=== PATIENT | male | born 1955 | race Caucasian/White ===

== ENCOUNTER 2019-07-11 06:32 | Emergency (ER) | payer BC, SELFPAY ==
--- NOTE | 2019-07-11 07:35 | RAD ---
EXAM: 3 views of the left shoulder HISTORY: Shoulder pain COMPARISON: None FINDINGS: There is anterior dislocation of the glenohumeral joint. No fracture is seen. No degenerati ve changes are present. No soft tissue swelling is seen. The visualized thorax is unremarkable. IMPRESSION: Left shoulder dislocation
[2019-07-11] MEDS ORDERED: Propofol 1,000 MG/100 ML VIAL IV ONE (07:52)
--- NOTE | 2019-07-11 08:32 | RAD ---
XR Shoulder Lt 2 View HISTORY: Fall left shoulder dislocation FINDINGS: There has been interval reduction of the anterior dislocation noted on the earlier exam of 7:48 AM fr om the same date. Anatomic alignment has been restored.
== END 2019-07-11 09:20 | disposition home or self-care (01) ==
LOC: ERS 06:32
DX: S43.015A Anterior dislocation of left humerus, initial encounter (principal); M10.9 Gout, unspecified; K21.9 Gastro-esophageal reflux disease without esophagitis; E78.5 Hyperlipidemia, unspecified; E78.00 Pure hypercholesterolemia, unspecified; I10 Essential (primary) hypertension; F32.9 Major depressive disorder, single episode, unspecified; Z79.899 Other long term (current) drug therapy; Z79.82 Long term (current) use of aspirin; W19.XXXA Unspecified fall, initial encounter
CPT/HCPCS: 23650; 99152; J2704

== ENCOUNTER 2019-12-13 03:38 | Inpatient (IN) | payer MEDICARE, OTHER ==
[2019-12-13 04:28] LABS: #Basophils 0.1 thou/uL (0.0-0.2); #Eosinphils 0.2 thou/uL (0.0-0.7); #Lymphocytes 2.1 thou/uL (1.20-3.40); #Monocytes 0.6 thou/uL (0.11-0.59); #Neutrophils 6.7 thou/uL (1.40-6.50); %Basophils 0.6 % (0.0-1.0); %Eosinophils 2.5 % (0.0-10.0); %Lymphocytes 21.4 % (21.0-51.0); %Monocytes 6.5 % (0.0-10.0); %Neutrophils 69.1 % (42.0-75.0); Hemoglobin 12.7 g/dL (14.0-18.0); Mean Corpuscular HGB CONC 31.6 g/dL (32.0-36.0); Mean Corpuscular Hemoglobin 29.8 pg (27.0-31.0); Mean Corpuscular Volume 94.2 fL (78.0-98.0); Mean Platelet Volume 7.7 fL (7.4-10.4); Platelet Count 272 thou/uL (130-400); RBC Distribution Width 13.5 % (11.5-14.5); Red Blood Cell (RBC) Count 4.25 mill/uL (4.70-6.10); White Blood Cell (WBC) Count 9.8 thou/uL (4.8-10.8)
[2019-12-13 04:42] LABS: ALT (SGPT) 29 U/L (8-55); AST (SGOT) 24 U/L (5-34); Alkaline Phosphatase 111 U/L (40-110); Anion Gap 13 mmol/L (10-20); BUN (Urea Nitrogen) 26 mg/dL (8.4-25.7); Bilirubin, Total 0.5 mg/dL (0.2-1.2); Calc. Creatinine Clearance 0 mL/min (70-130); Calcium 9.3 mg/dL (7.8-10.44); Carbon Dioxide 23 mmol/L (23-31); Chloride 108 mmol/L (98-107); Estimated GFR-MDRD 46; Globulin 3.5 g/dL (2.4-3.5); Glucose 139 mg/dL (80-115); Potassium 3.9 mmol/L (3.5-5.1); Protein, Total 7.5 g/dL (5.8-8.1); Sodium 140 mmol/L (136-145)
[2019-12-13] MEDS ORDERED: Aspirin Chewable 81 MG TAB ONE (05:08)
[2019-12-13] MEDS ORDERED: Diltiazem 125 MG/25 ML ONE ×2 (05:08→14:46)
[2019-12-13 05:11] LABS: CKMB 3.8 ng/mL (0-6.6)
[2019-12-13] MEDS ORDERED: Calcium Carbonate 500 MG ChewTAB PO PRN (05:16)
[2019-12-13] MEDS ORDERED: Ondansetron ODT 4 MG TAB PO PRN (05:16)
[2019-12-13] MEDS ORDERED: HYDROcodone/Acetaminophen 5/325 mg Tablet PO PRN (05:16)
[2019-12-13] MEDS ORDERED: Acetaminophen 325 MG TAB PO PRN (05:16)
[2019-12-13] MEDS ORDERED: Acetaminophen 650 MG Suppository PR PRN (05:16)
[2019-12-13] MEDS ORDERED: Ondansetron PF 4 MG/2 ML Vial IVP PRN (05:16)
--- NOTE | 2019-12-13 05:21 | PDOC.HHP ---
Hospitalist HPI - History of Present Illness dyspnea History of Present Illness: Case of an 64y/o male with pmhx of htn hyperlipidemia gout and mdd who comes to hospital due to dyspnea. patient refers he was on his usual state of health until around 2 week ago when he started with dyspena worsen by exercision that has kept worsening been more significant today for he decided to come to hospital for evaluation. patient denies chest / abd pain diaphoresis or nausea. at the ed pt was found w afib in rvr for which hospitalist was called for further evaluation and management Hospitalist ROS - Review of Systems All other systems reviewed; all pertinent +/- noted in HPI/Subj Hospitalist History - Past Medical History Cardiac: reports: HTN, Hyperlipidemia - Past Surgical History Past Surgical History: reports: no pertinent history - Family History Family History: reports: hypertension - Social History Smoking Status: Never smoker Alcohol: reports: Occassional Drugs: reports: none - Exam General Appearance: NAD Eye: PERRL, anicteric sclera ENT: normocephalic atraumatic, no oropharyngeal lesions Neck: supple, symmetric, no JVD Heart: no murmur, no gallops, no rubs Heart - other findings: irregular rythm, tachycardic Respiratory: CTAB, no wheezes, no rales Gastrointestinal: soft, non-tender, non-distended Extremities: no cyanosis, no clubbing, no edema Skin: normal turgor, no lesions Neurological: cranial nerve grossly intact, normal sensation to touch Musculoskeletal: normal tone, normal strength, no muscle wasting Psychiatric: normal affect, normal behavior, A&O x 3 Hospitalist Results - Labs Result Diagrams: 12/13/19 04:07 12/13/19 04:07 Lab results: WBC 9.8 thou/uL (4.8-10.8) 12/13/19 04:07 Hgb 12.7 g/dL (14.0-18.0) L 12/13/19 04:07 Hct 40.1 % (42.0-52.0) L 12/13/19 04:07 MCV 94.2 fL (78.0-98.0) 12/13/19 04:07 Plt Count 272 thou/uL (130-400) 12/13/19 04:07 Neutrophils % 69.1 % (42.0-75.0) 12/13/19 04:07 Sodium 140 mmol/L (136-145) 12/13/19 04:07 Potassium 3.9 mmol/L (3.5-5.1) 12/13/19 04:07 Chloride 108 mmol/L (98-107) H 12/13/19 04:07 Carbon Dioxide 23 mmol/L (23-31) 12/13/19 04:07 BUN 26 mg/dL (8.4-25.7) H 12/13/19 04:07 Creatinine 1.53 mg/dL (0.7-1.3) H 12/13/19 04:07 Glucose 139 mg/dL (80-115) H 12/13/19 04:07 Calcium 9.3 mg/dL (7.8-10.44) 12/13/19 04:07 Total Bilirubin 0.5 mg/dL (0.2-1.2) 12/13/19 04:07 AST 24 U/L (5-34) 12/13/19 04:07 ALT 29 U/L (8-55) 12/13/19 04:07 Alkaline Phosphatase 111 U/L (40-110) H 12/13/19 04:07 CK-MB (CK-2) 3.8 ng/mL (0-6.6) 12/13/19 04:07 Troponin I 0.033 ng/mL (< 0.028) H 12/13/19 04:07 B-Natriuretic Peptide 298.7 pg/mL (0-100) H 12/13/19 04:07 Serum Total Protein 7.5 g/dL (5.8-8.1) 12/13/19 04:07 Albumin 4.0 g/dL (3.4-4.8) 12/13/19 04:07 - EKG Interpretation EKG: afib in rvr - Radiology Interpretation Chest x-ray Additional Comment: cardio megaly, vascular congestion Hospitalist H&P A/P - Problem (1) Atrial fibrillation with rapid ventricular response Code(s): I48.91 - UNSPECIFIED ATRIAL FIBRILLATION Status: Acute (2) HTN (hypertension) Code(s): I10 - ESSENTIAL (PRIMARY) HYPERTENSION Status: Acute (3) Hypercholesteremia Code(s): E78.00 - PURE HYPERCHOLESTEROLEMIA, UNSPECIFIED Status: Acute (4) Gout Code(s): M10.9 - GOUT, UNSPECIFIED Status: Acute (5) Obese Code(s): E66.9 - OBESITY, UNSPECIFIED Status: Acute (6) Elevated troponin Code(s): R79.89 - OTHER SPECIFIED ABNORMAL FINDINGS OF BLOOD CHEMISTRY Status : Acute - Plan Plan: atrial fibrillation - new onset - on diltiazem drip - full ac w lovenox - cardio evaluation - cardiac monitoring -tsh elevated troponin - likely nstemi type 2 - continue to trend - evaluation of modifiable risk factors w lipid panel and htn / hypercholesterolemia / gout - continue home meds
[2019-12-13] MEDS ORDERED: Sodium Chloride 0.9% 1,000 ML IV SCH (05:30)
[2019-12-13 06:40] LABS: Cardiac Risk 3.2 (Less than 4.5)
--- NOTE | 2019-12-13 07:50 | RAD ---
EXAM: Single view of the chest HISTORY: Dyspnea COMPARISON: None FINDINGS: Single view of the chest shows an enlarged cardiomediastinal silhouette. There are opacitie s in both lung bases which may represent atelectasis or infiltrates. The bones are unremarkable. IMPRESSION: Bibasilar atelectasis versus infiltrates
[2019-12-13 07:56] LABS: Hemoglobin A1c 6.1 % (4.0-6.0)
[2019-12-13 08:14] LABS: Troponin I 0.022 ng/mL (< 0.028)
[2019-12-13] MEDS ORDERED: Enoxaparin Sodium 100 MG/ML SYRINGE ONE (08:33)
[2019-12-13] MEDS: Enoxaparin Sodium 100 MG/ML SYRINGE SC SCH ×2 (08:53→21:03)
[2019-12-13] MEDS ORDERED: Enoxaparin Sodium 40 MG/0.4 ML SYRINGE SC SCH (09:00)
[2019-12-13 10:47] LABS: Troponin I 0.012 ng/mL (< 0.028)
--- NOTE | 2019-12-13 16:34 | PDOC.HOSPP ---
- Subjective Encounter Date: 12/13/19 Encounter Time: 16:30 Subjective: pt seen in the unit, still on cardizem gtt, i started him on Po cardizem to wean off the gtt. stable, plan for cardioversion in am. - Objective Vital Signs & Weight: Vital Signs (12 hours) Temp 12/13/19 16:16 96.4 F L I&O: 12/12/19 12/13/19 12/14/19 06:59 06:59 06:59 Output Total 200 Balance -200 Result Diagrams: 12/13/19 04:07 12/13/19 04:07 Hospitalist ROS - Medication Medications: Active Medications Generic Name Dose Route Start Last Admin Trade Name Freq PRN Reason Stop Dose Admin Diltiazem HCl 60 mg 12/13/19 15:00 12/13/19 14:52 Cardizem PO 60 mg TID DENNIS Administration Enoxaparin Sodium 100 mg 12/13/19 09:00 12/13/19 08:53 Lovenox SC 100 mg 0900,2100 DENNIS Administration Sodium Chloride 10 ml 12/13/19 09:00 12/13/19 09:00 Flush - Normal Saline IVF 10 ml Q12HR DENNIS Administration - Exam General Appearance: NAD, awake alert Eye: PERRL ENT: normocephalic atraumatic Neck: supple Heart: RRR, normal peripheral pulses Respiratory: CTAB, normal chest expansion Gastrointestinal: soft, normal bowel sounds Neurological: no focal deficits Hosp A/P - Plan New onset afib still on cardizem gtt, i started him on Po cardizem to wean off the gtt. stable, plan for cardioversion in am. --pt stays that he was on bl..t suzannanner in the past, for remote hx of stroke,--- may be thinking of plavix --as no home meds noted as blood thinner --lovenox bid, asa -TSH nl range -apprecaite Dr. Lima's help. Abnormal troponin - d/t afib w.. RVR. OSMANI -fw on the trend HTN -as above-- on cardizem GOUt - no home med for this. Obesity
[2019-12-13 16:43] VITALS: BMI 44.2
[2019-12-13] MEDS ORDERED: Melatonin 3 MG TAB PO PRN (20:59)
[2019-12-13] MEDS: Diltiazem 125 MG in Sodium Chloride 0.9% 100 ML IVPB SCH (23:44)
[2019-12-14 04:14] LABS: #Eosinphils 0.2 thou/uL (0.0-0.7); #Lymphocytes 2.1 thou/uL (1.20-3.40); #Monocytes 0.8 thou/uL (0.11-0.59); #Neutrophils 7.1 thou/uL (1.40-6.50); %Basophils 0.4 % (0.0-1.0); %Eosinophils 1.8 % (0.0-10.0); %Lymphocytes 20.1 % (21.0-51.0); %Monocytes 7.9 % (0.0-10.0); %Neutrophils 69.8 % (42.0-75.0); Hemoglobin 12.2 g/dL (14.0-18.0); Mean Corpuscular HGB CONC 31.7 g/dL (32.0-36.0); Mean Corpuscular Hemoglobin 30.2 pg (27.0-31.0); Mean Corpuscular Volume 95.3 fL (78.0-98.0); Mean Platelet Volume 7.8 fL (7.4-10.4); Platelet Count 265 thou/uL (130-400); RBC Distribution Width 13.6 % (11.5-14.5); Red Blood Cell (RBC) Count 4.04 mill/uL (4.70-6.10); White Blood Cell (WBC) Count 10.2 thou/uL (4.8-10.8)
[2019-12-14 04:36] LABS: ALT (SGPT) 26 U/L (8-55); AST (SGOT) 22 U/L (5-34); Albumin 3.9 g/dL (3.4-4.8); Alkaline Phosphatase 110 U/L (40-110); Anion Gap 13 mmol/L (10-20); BUN (Urea Nitrogen) 23 mg/dL (8.4-25.7); Bilirubin, Total 0.6 mg/dL (0.2-1.2); Calc. Creatinine Clearance 99 mL/min (70-130); Calcium 9.2 mg/dL (7.8-10.44); Carbon Dioxide 24 mmol/L (23-31); Chloride 108 mmol/L (98-107); Estimated GFR-MDRD 53; Globulin 3.3 g/dL (2.4-3.5); Glucose 129 mg/dL (80-115); Potassium 4.5 mmol/L (3.5-5.1); Protein, Total 7.2 g/dL (5.8-8.1); Sodium 140 mmol/L (136-145)
[2019-12-14] MEDS: Enoxaparin Sodium 100 MG/ML SYRINGE SC SCH ×2 (07:19→20:55)
[2019-12-14] MEDS: Aspirin 81 mg Enteric Coated Tablet PO SCH (07:20)
--- NOTE | 2019-12-14 07:39 | CON ---
DATE OF CONSULTATION: CONSULTING DOCTOR: Dr. Carlos Mora HISTORY OF PRESENT ILLNESS: The patient is a 64-year-old gentleman, who presents for evaluation of dyspnea. The patient has a previous history of hypertension and dyslipidemia. The patient was in his usual state of health until two weeks ago , he started developing increasing dyspnea. He reports becoming short of breath with minimal exertion. He denied having any chest discomfort. PAST MEDICAL HISTORY: 1. Hypertension. 2. CVA. 3. Renal stones. 4. Dyslipidemia. PAST SURGICAL HISTORY: None. SOCIAL HISTORY: Nonsmoker. MEDICATIONS: 1. Lisinopril 20 daily. 2. Paxil 20 daily. 3. Allopurinol 300 daily. 4. Lipitor 40 at bedtime. 5. Lisinopril 20mg daily. 6. HCTZ 25 daily. 7. Aspirin 81 daily. 8. Norvasc 10 daily. 9. Pepcid 20 daily. 10. HCTZ 12.5 daily. SOCIAL HISTORY: Nonsmoker. FAMILY HISTORY: Positive family history of coronary artery disease. REVIEW OF SYSTEMS: Ten-point system otherwise unremarkable. No history of easy bruising or bleeding or bright red blood per rectum. PHYSICAL EXAMINATION: GENERAL: Obese gentleman, in no acute distress. VITAL SIGNS: Blood pressure of 124/85. NECK: Showed no jugular venous distention. LUNGS: Clear to auscultation. HEART: Irregular rate and rhythm. Normal S1 and S2. No murmurs. ABDOMEN: Distended. EXTREMITIES: Showed trace edema. VASCULAR: Radial pulses are 2+. LABORATORY RESULTS: Sodium was 140, potassium 3.9, chloride 108, bicarbonate 23, BUN 26, creatinine 1.5, glucose 139. Troponin was 0.022 and 0.012. White blood count 9.8, hemoglobin 12.7, hematocrit 40.1, and platelet 272. EKG atrial fibrillation with a nonspecific ST abnormality. IMPRESSION: 1. Paroxysmal atrial fibrillation. 2. Hypertension. 3. Dyslipidemia. 4. History of cerebrovascular accident. 5. Morbid obesity. This gentleman presents with new onset atrial fibrillation. The patient was on Lovenox and IV Cardizem. The patient is markedly symptomatic, we would recommend the patient be considered for possible electrical cardioversion. We will follow this patient with you through his hospitalization. Further recommendations to follow. Job ID: [id number] [facility]
[2019-12-14] MEDS ORDERED: PROPOFOL 20 ML ONE (08:47)
[2019-12-14] MEDS ORDERED: Furosemide 40 MG/4 ML VIAL ONE (09:13)
[2019-12-14] MEDS ORDERED: Enoxaparin Sodium 100 MG/ML SYRINGE SC SCH (12:00)
[2019-12-14] MEDS ORDERED: ALPRAZolam 0.25 MG TAB PO SCH (12:15)
[2019-12-14] MEDS ORDERED: Furosemide 40 MG/4 ML VIAL SLOW IVP SCH ×2 (12:15→19:15)
[2019-12-14] MEDS ORDERED: PROPOFOL 200 MG/20 ML VIAL ONE (12:21)
[2019-12-14] MEDS: Propafenone HCl 150 MG TAB PO SCH ×2 (12:32→21:03)
[2019-12-14] MEDS: Digoxin 0.25 MG TAB PO SCH ×3 (12:32→23:08)
--- NOTE | 2019-12-14 13:21 | PDOC.HOSPP ---
- Subjective Encounter Date: 12/14/19 Encounter Time: 13:20 Subjective: s/p cardioversion, in afib in the monitor, pulse in 80s. ok for tele [no beds] . - Objective Vital Signs & Weight: Vital Signs (12 hours) Temp Pulse Pulse Ox 12/14/19 12:32 111 H 12/14/19 11:38 97.0 F L 12/14/19 08:00 98 12/14/19 07:07 96.6 F L 12/14/19 03:30 98.2 F Weight Weight 282 lb 6.4 oz Most Recent Monitor Data Heart Rate from ECG 141 NIBP 148/88 NIBP BP-Mean 108 Respiration from ECG 22 SpO2 94 I&O: 12/13/19 12/14/19 12/15/19 06:59 06:59 06:59 Intake Total 360 Output Total 650 Balance -290 Result Diagrams: 12/14/19 03:56 12/14/19 03:56 Hospitalist ROS - Medication Medications: Active Medications Generic Name Dose Route Start Last Admin Trade Name Freq PRN Reason Stop Dose Admin Hydrocodone Bitart/Acetaminophen 1 tab 12/13/19 05:16 12/13/19 23:44 [place] 5/325 PO 1 tab Q4H PRN Administration Moderate Pain (4-6) Alprazolam 0.25 mg 12/14/19 12:15 12/14/19 12:32 Xanax PO 12/14/19 14:15 0.25 mg NOW DENNIS Administration Digoxin 0.25 mg 12/14/19 12:00 12/14/19 12:32 Lanoxin PO 12/15/19 06:01 0.25 mg Q6HR DENNIS Administration Diltiazem HCl 60 mg 12/13/19 15:00 12/14/19 07:31 Cardizem PO 60 mg TID DENNIS Administration Furosemide 40 mg 12/14/19 12:15 12/14/19 12:09 Lasix SLOW IVP 12/14/19 14:15 Not Given NOW DENNIS Diltiazem HCl 125 mg/ Sodium 125 mls @ 5 mls/hr 12/13/19 05:30 12/13/19 23:44 Chloride IVPB 125 mls INF DENNIS Administration Protocol 5 MG/HR Melatonin 3 mg 12/13/19 20:59 12/13/19 21:03 Melatonin PO 3 mg HSPRN PRN Administration Insomnia Propafenone HCl 150 mg 12/14/19 14:00 12/14/19 12:32 Rythmol PO 150 mg Q8HR DENNIS Administration Sodium Chloride 10 ml 12/13/19 09:00 12/14/19 07:32 Flush - Normal Saline IVF 10 ml Q12HR DENNIS Administration - Exam General Appearance: NAD, awake alert Eye: PERRL ENT: normocephalic atraumatic Neck: supple Heart: irregular Respiratory: CTAB, normal chest expansion Gastrointestinal: soft, normal bowel sounds Neurological: no focal deficits Hosp A/P - Plan New onset afib still on cardizem gtt, i started him on Po cardizem to wean off the gtt. stable, plan for cardioversion in am. --pt stays that he was on bl..t hinner in the past, for remote hx of stroke,--- may be thinking of plavix --as no home meds noted as blood thinner --lovenox bid, asa -TSH nl range -apprecaite Dr. Lima's help. Abnormal troponin - d/t afib w.. RVR. OSMANI -fw on the trend HTN -as above-- on cardizem GOUt - no home med for this. Obesity dgioxin added. [id number] score 2 [age & HTN] not diabetic a1c 6.1 -would benefit w.. NOAC. on lovenox qd dose. ok for tele floor.
--- NOTE | 2019-12-14 16:09 | OP ---
DATE OF PROCEDURE: 12/14/2019 PREPROCEDURE DIAGNOSIS: Atrial fibrillation. POSTPROCEDURE DIAGNOSIS: Atrial fibrillation. PROCEDURE PERFORMED: Failed cardioversion. INDICATIONS FOR PROCEDURE: Mr. Angeles was consented for the procedure. I discussed the procedure in full detail with Mr. Angeles. Risks include, but not limited to the following: Stroke, need for repeat cardioversion, failed cardioversion in addition to a need for temporary pacemaker as well as burning of skin. All questions were answered. Given the above, the patient agreed to proceed with the above procedure. DESCRIPTION OF PROCEDURE: Conscious sedation was performed with propofol. This was performed after IGNACIO. Unsuccessful synchronized cardioversion was performed at 150, 200, and 250 joules. IMPRESSION: Failed cardioversion. Job ID: [id number]
--- NOTE | 2019-12-14 16:10 | OP ---
DATE OF PROCEDURE: 12/14/2019 PREPROCEDURE DIAGNOSIS: Atrial fibrillation. POSTPROCEDURE DIAGNOSIS: Atrial fibrillation. PROCEDURE PERFORMED: Transesophageal echocardiography. I discussed the procedure in full detail with Mr. Angeles. Risks include, but not limited to the following: Damage to teeth, mouth, back of throat; damage to esophagus requiring emergency surgery as well as reaction to medication. All questions answered. Given the above, the patient agreed to proceed with the above procedure. DESCRIPTION OF PROCEDURE: Conscious sedation performed with propofol. The patient did have shortness of breath noted prior, did improve with a non-rebreather. Anesthesia was present. FINDINGS: Left atrial appendage well visualized. No masses or vegetation present. IMPRESSION: No masses present over the left atrial appendage. Job ID: [id number]
[2019-12-14] MEDS ORDERED: Prevnar 13-Val Conj/PF 0.5 ML SYRINGE IM ONE (17:30)
[2019-12-14] MEDS: Diltiazem 125 MG in Sodium Chloride 0.9% 100 ML IVPB SCH (19:16)
[2019-12-14] MEDS: traZODone HCl 50 MG TAB PO PRN (20:55)
[2019-12-15] MEDS: Propafenone HCl 150 MG TAB PO SCH (05:46)
[2019-12-15] MEDS: Digoxin 0.25 MG TAB PO SCH (05:47)
[2019-12-15] MEDS: Aspirin 81 mg Enteric Coated Tablet PO SCH (09:11)
[2019-12-15] MEDS: Enoxaparin Sodium 100 MG/ML SYRINGE SC SCH (09:11)
--- NOTE | 2019-12-15 13:39 | PRG ---
DATE OF SERVICE: 12/15/2019 SUBJECTIVE: Mr. Angeles is doing better. He states he is less short of breath. He has had significant diuresis present. He continues to have intermittent heart rate issues. He does have increased heart rate noted with little ambulation. OBJECTIVE: VITAL SIGNS: Blood pressure 130/81, pulse 88, temperature afebrile. LUNGS: Improved. HEART: Irregularly irregular. ABDOMEN: Soft, nontender, and nondistended. EXTREMITIES: No edema. I's and O's -2170 over 24 hours. IMPRESSION: New onset atrial fibrillation. RECOMMENDATIONS: Symptoms may be related to hypertension in addition to undiagnosed sleep apnea. Continue rate control. We will increase p.o. Cardizem. We will discontinue propafenone. Add Eliquis 5 mg one p.o. b.i.d. Continue digoxin at 0.25 q.a.m. Plan is rate control. If stable over the weekend, it will be okay for discharge with close outpatient followup and plan on outpatient cardioversion. I did speak at length with his daughter. I did state that he should probably be out of work until he is seen in followup for further recommendations. Sahil blackmon. Job ID: [id number]
--- NOTE | 2019-12-15 14:04 | PDOC.HOSPP ---
- Subjective Encounter Date: 12/15/19 Encounter Time: 10:20 Subjective: pt is anious to go home today. Talk to area coordinator. CCB dose increased to optimize for his high pulse. convinced him to stay another day. Need to start him on NOAC. - Objective Vital Signs & Weight: Vital Signs (12 hours) Temp Pulse Resp BP Pulse Ox 12/15/19 11:30 98.3 F 88 16 132/81 97 12/15/19 09:12 112 H 18 111/87 12/15/19 08:00 97 12/15/19 07:45 97.5 F L 108 H 21 H 104/77 97 12/15/19 05:47 95 12/15/19 04:01 98 F 115 H 20 98/51 L 94 L Weight Weight 282 lb 6.4 oz Most Recent Monitor Data Heart Rate from ECG 103 NIBP 106/83 NIBP BP-Mean 90 Respiration from ECG 22 SpO2 91 I&O: 12/14/19 12/15/19 12/16/19 06:59 06:59 06:59 Intake Total 360 630 960 Output Total 650 2800 Balance -290 -2170 960 Result Diagrams: 12/14/19 03:56 12/14/19 03:56 Hospitalist ROS - Medication Medications: Active Medications Generic Name Dose Route Start Last Admin Trade Name Freq PRN Reason Stop Dose Admin Hydrocodone Bitart/Acetaminophen 1 tab 12/13/19 05:16 12/13/19 23:44 [place] 5/325 PO 1 tab Q4H PRN Administration Moderate Pain (4-6) Aspirin 81 mg 12/14/19 09:00 12/15/19 09:11 Ecotrin PO 81 mg DAILY DENNIS Administration Diltiazem HCl 90 mg 12/15/19 07:00 12/15/19 09:09 Cardizem PO 90 mg Q6H DENNIS Administration Diltiazem HCl 125 mg/ Sodium 125 mls @ 5 mls/hr 12/13/19 05:30 12/14/19 19:16 Chloride IVPB 125 mls INF DENNIS Administration Protocol 5 MG/HR Melatonin 3 mg 12/13/19 20:59 12/13/19 21:03 Melatonin PO 3 mg HSPRN PRN Administration Insomnia Sodium Chloride 10 ml 12/13/19 09:00 12/15/19 09:11 Flush - Normal Saline IVF 10 ml Q12HR DENNIS Administration Trazodone HCl 50 mg 12/14/19 19:50 12/14/19 20:55 Desyrel PO 50 mg HSPRN PRN Administration .INSOMNIA - Exam General Appearance: NAD, awake alert Eye: PERRL ENT: normocephalic atraumatic Neck: supple Heart: irregular Respiratory: CTAB, tachypneic Gastrointestinal: soft, normal bowel sounds, no palpable masses Neurological: no focal deficits Psychiatric: A&O x 3 Hosp A/P - Plan New onset afib still on cardizem gtt, i started him on Po cardizem to wean off the gtt. stable, plan for cardioversion in am. --pt stays that he was on bl..t hinner in the past, for remote hx of stroke,--- may be thinking of plavix --as no home meds noted as blood thinner --lovenox bid, asa -TSH nl range -apprecaite Dr. Lima's help. Abnormal troponin - d/t afib w.. RVR. OSMANI -fw on the trend HTN -as above-- on cardizem GOUt - no home med for this. Obesity dgioxin added. [id number] score 2 [age & HTN] not diabetic a1c 6.1 -would benefit w.. NOAC. on lovenox qd dose. 17th Talk to area coordinator. CCB dose increased to optimize for his high pulse. convinced him to stay another day. Need to start him on NOAC. cardizem 90 qid - per cardiology eliquis 5 bid if pulse improved, then 360mg ER of cardizem and dc home in am.
--- NOTE | 2019-12-15 15:26 | CON ---
DATE OF CONSULTATION: HISTORY OF PRESENT ILLNESS: This is a 64-year-old morbidly obese gentleman from [place], [place], who has been in the hospital here since the , consulted today regarding some respiratory distress that he had yesterday, it appears about the time when he had a IGNACIO performed for cardioversion of atrial fibrillation. He has been having difficulty breathing now for a period of time. His x-ray shows cardiomegaly, pleural effusion, consider congestive heart failure. He denies any prior history of TB, pneumonia, or bronchial asthma. Denies any history of sleep apnea. He says he is not a smoker. Most days, he can walk a block without getting markedly short of . PAST MEDICAL HISTORY: High cholesterol, hypertension, recent atrial fibrillation. PAST SURGICAL HISTORY: Renal stent. SOCIAL HISTORY: No alcohol, tobacco abuse. HOME MEDICATIONS: 1. Omeprazole 20. 2. Aspirin. 3. Hydrochlorothiazide. 4. Norvasc. 5. Allopurinol. 6. Lisinopril. 7. Prozac. REVIEW OF SYSTEMS: Otherwise, 10-point negative. PHYSICAL EXAMINATION: VITAL SIGNS: Temperature 98, pulse 83, respiratory rate 16, sats 97% on room air, blood pressure 130/81. CHEST: No wheezing or crackles. CARDIAC: Normal S1, S2. No gallops. ABDOMEN: Massive. ASSESSMENT AND PLAN: Respiratory failure secondary to congestive heart failure, atrial fibrillation, morbid obesity, nonsmoker, hypertension, gout. Pulmonary has nothing to offer at this stage, appears to be stable, he is in no distress, though he may benefit from an outpatient sleep study, if the patient should request one, he is to call our office for followup. Consultation note, 70 minutes, 50% direct patient care. Job ID: [id number]
[2019-12-15] MEDS: traZODone HCl 50 MG TAB PO PRN (21:29)
[2019-12-15] MEDS: Apixaban 5 MG TAB PO SCH (21:29)
[2019-12-16 04:18] VITALS: TEMP 97.3
[2019-12-16] MEDS: Aspirin 81 mg Enteric Coated Tablet PO SCH (08:06)
[2019-12-16] MEDS: Apixaban 5 MG TAB PO SCH (08:06)
[2019-12-16 08:18] VITALS: BP 128/76
[2019-12-16] MEDS ORDERED: Digoxin 0.25 MG TAB PO SCH (09:00)
--- NOTE | 2019-12-16 13:52 | DIS ---
DATE OF ADMISSION: 12/13/2019 DATE OF DISCHARGE: 12/16/2019 DISCHARGE DIAGNOSES: 1. New onset atrial fibrillation. 2. Abnormal troponin due to atrial fibrillation, metabolic mismatch, type 2 demand ischemia. 3. Acute kidney injury. 4. Hypertension. 5. Gout. 6. Obesity. 7. Severe mitral regurgitation. A 2D echo showed EF of 45% to 50%, probably due to ongoing atrial fibrillation. He also has a severe mitral regurgitation. CONSULTS: 1. Cardiology, Dr. Montes. 2. Pulmonology with Dr. Nic Rowe. PHYSICAL EXAMINATION: VITAL SIGNS: On the day of discharge, temperature 97.3, pulse 83, blood pressure 128/76, his pulse ranged from 79 to 83. GENERAL: The patient is quite anxious to go home. He is sitting in the chair. He has no acute events overnight. Monitor still shows atrial fibrillation. CARDIOVASCULAR: Irregular rhythm, regular rate. LUNGS: Clear. ABDOMEN: Protuberant and distended, but it is with body habitus but good bowel sounds. HOSPITAL COURSE: This is a 64-year-old obese male with a history of hypertension, presented with new onset AFib. He was started on Cardene drip. Also started him on Cardizem p.o to wean him off the drip. He has gone through cardioversion, but it was failed attempt. The patient remained in atrial fibrillation. His CHADS2-VASc score is 2. We started him on Lovenox b.i.d. dose and transitioned to Eliquis p.o. b.i.d. The patient does have chronic kidney disease and his creatinine level was 1.53 to 1.35. Cardiology okay with starting him on Eliquis 5 twice a day. The patient also transitioned to Cardizem extended release 360 mg daily. With these interventions, his heart rate seems to be controlled, which is the main goal for the management of atrial fibrillation. The patient expected to follow up with Dr. Montes in 2 to 3 weeks' time. His EF is on the low side of 50%, again may be atrial fibrillation is contributing. Repeat echo is recommended in 2 to 3 months with his primary care physician or at [facility]iology Clinic. TSH in the normal range. His A1c is 6.1. His LDL is 60. The patient is stable to be discharged home today. DISCHARGE MEDICATIONS: 1. Eliquis 5 mg twice a day. 2. Diltiazem extended release 360 mg daily. 3. Lisinopril 5 mg daily. 4. Lipitor 40 mg daily. 5. Allopurinol 300 mg daily. 6. Paroxetine 20 mg daily. 7. Aspirin 81 mg daily. 8. Omeprazole 20 mg daily. 9. Vitamin D3 125 mcg p.o. daily. DISCHARGE INSTRUCTIONS: Activity as tolerated. Healthy heart diet. Follow up with primary care physician in 1 week. Follow up with payroll consultant, Dr. Montes in 2 to 3 weeks' time. TIME SPENT: Discharge time over 35 minutes. Job ID: [id number] [facility]
--- NOTE | 2019-12-18 06:37 | PQF ---
CLINICAL DOCUMENTATION CLARIFICATION FORM: Dear : Yahir Hernández Date / Time: 12/18/19 0636 Please exercise your independent, professional judgment in responding to the clarification form. Clinical indicators are provided on the bottom of this form for your review Please check appropriate box(es) to clarify if the following diagnosis has been ruled in our ruled out: NSTEMI type 2 [ ] Ruled in diagnosis [ ] Continue to treat [ ] Resolved [x ] Ruled out diagnosis [ ] Improving [ ] Cannot rule out diagnosis [ ] Other diagnosis [ ] Unable to determine Physician Signature: Date/Time: For continuity of documentation, please document condition throughout progress notes and discharge summary. Thank You. To be completed by CDI/Coding staff for physician review: Present Clinical Indicators - Signs / Symptoms / Labs Results and Location in Medical Record [X] CK-MB 3.8, Tropinin 0.033, BNP 298.7 Laboratory Chemistry 12/12 [X] BP 141/98, Pulse 111, Resp 37, Temp 96.4 Vital signs 12/12 [X] comes due to dyspnea, worsen by exercision that has kept worsening been more significant today H&P p1 12/12 Dr Mora [X] Elevated troponin likley NSTEMI type 2 H&P p1 12/12 Dr Mora [X] Elated troponin due to afib, metabolic mismatch, type 2 demand ischemia DS p1 12/15 Dr Hernández Present Risk Factors Results and Location in Medical Record [X] 64 year-old Male H&P p1 12/12 Dr Mora [X] HTN H&P p1 12/12 Dr Mora [X] HLD H&P p1 12/12 Dr Mora [X] Afib H&P p312/12 Dr Mora [X] Obesity H&P p312/12 Dr Mora Present Treatments Results and Location in Medical Record [X] Aspirin Chewable 84 mg oral AUG 04 [X] IVICardiazem 25 mg AUG 04 [X] IV Lovenox 100 mg AUG 04 [X] IV Lasix 40 mg AUG 04 [X] Cardiology consult Trever Meyer 12/12 [X] IGNACIO with Cardioversion Operative report Dr Montes 12/13 CDS/Field Service Technician Signature: Jennifer Wells Phone #: [phone] Date/Time: 12/18/19635 This is a permanent part of the Medical Record [facility]
--- NOTE | 2019-12-18 06:39 | PQF ---
CLINICAL DOCUMENTATION CLARIFICATION FORM: Dear : Yahir Hernández Date / Time: 12/18/19637 Please exercise your independent, professional judgment in responding to the clarification form. Clinical indicators are provided on the bottom of this form for your review Please check appropriate box(es): [ x ] Acute Respiratory Failure with Hypoxia [ ] ARDS (Acute Respiratory Distress Syndrome) [ ] Hypoxia [ ] Other diagnosis [ ] Unable to determine In addition, please specify: Present on Admission (POA): [ ] Yes [ ] No [ ] Unable to determine Physician Signature: Date/Time: For continuity of documentation, please document condition throughout progress notes and discharge summary. Thank You. To be completed by CDI/Coding staff for physician review: Present Clinical Indicators - Signs / Symptoms / Labs Results and Location in Medical Record [X] CK-MB 3.8, Tropinin 0.033, BNP 298.7 Laboratory Chemistry 12/12 [X] BP 141/98, Pulse 111, Resp 37, Temp 96.4 Vital signs 12/12 [X] Oxygen Saturation 93% Vital signs 12/12 [X] comes due to dyspnea, worsen by exercision that has kept worsening been more significant today H&P p1 12/12 Dr Mora [X] Respiratory failure secondary to congestive heart failure,Afib, morbid obesity Consult Nic Johnson 12/14 Present Risk Factors Results and Location in Medical Record [X] 64 year-old Male H&P p1 12/12 Dr Mora [X] HTN H&P p1 12/12 Dr Mora [X] HLD H&P p1 12/12 Dr Mora [X] Afib H&P p312/12 Dr Mora [X] Obesity H&P p312/12 Dr Mora Present Treatments Results and Location in Medical Record [X] Oxygen 2L Respiratory panel 12/12 [X] Pulmonary consult Nic Johnson 12/14 [X] IV Lasix 40 mg MAR 12/12 [X] Cardiology consult Trever Meyer 12/12 [X] IGNACIO with Cardioversion Operative report Dr Montes 12/13 CDS/Monument Stonecutter Signature: Jennifer Rowellgunner Phone #: ext [phone] Date/Time: 12/18/19637 Acute Respiratory Failure: ABG pH < 7.35 or > 7.45; Decreased oxygen saturation (<90% room air or < 95% on oxygen); PCO2 > 50 mm Hg; PO2 < 60 mm Hg; Labored or rapid respirations ARDS: Dx Criteria [[place] ARDS]: Respiratory symptoms within one week of a known clinical insult (e.g. shock, infection, surgery, trauma) Bilateral opacities in CXR/Chest CT not due to CHF or fluid This is a permanent part of the Medical Record [facility]
--- NOTE | 2019-12-18 06:40 | PQF ---
CLINICAL DOCUMENTATION CLARIFICATION FORM: Dear : Yahir Hernández Date / Time: 12/18/19 9428 Please exercise your independent, professional judgment in responding to the clarification form. Clinical indicators are provided on the bottom of this form for your review Please check appropriate box(es): HEART FAILURE: A. ACUITY [ ] Acute [ ] Acute on Chronic [ ] Chronic B. TYPE: [ ] Systolic / HFrEF [ ] Diastolic / HFpEF [ x] Combined Systolic / Diastolic [ ] Hypertensive Heart and Kidney disease [ ] Hypertensive Heart Disease [ ] Hypertensive Kidney Disease [ ] Other diagnosis [ ] Unable to determine In addition, please specify: Present on Admission (POA): [x ] Yes [ ] No [ ] Unable to determine Physician Signature: Date/Time: For continuity of documentation, please document condition throughout progress notes and discharge summary. Thank You. To be completed by CDI/Coding staff for physician review: Present Clinical Indicators - Signs / Symptoms / Labs Results and Location in Medical Record [X] CK-MB 3.8, Tropinin 0.033, BNP 298.7 Laboratory Chemistry 12/12 [X] BP 141/98, Pulse 111, Resp 37, Temp 96.4 Vital signs 12/12 [X] comes due to dyspnea, worsen by exercision that has kept worsening been more significant today H&P p1 12/12 Dr Mora [X] Elevated troponin likley NSTEMI type 2 H&P p1 12/12 Dr Mora [X] Respiratory failure secondary to congestive heart failure,Afib, morbid obesity Consult Nic Johnson 12/14 [X] Elated troponin due to afib, metabolic mismatch, type 2 demand ischemia DS p1 12/15 Dr Hernández TTE impression: EF 45-50%, Mitral regurgitation, Tricupid regurgitation TTE Dr Montes 12/13 Present Risk Factors Results and Location in Medical Record [X] 64 year-old Male H&P p1 12/12 Dr Mora [X] HTN H&P p1 12/12 Dr Mora [X] HLD H&P p1 12/12 Dr Mora [X] Afib H&P p312/12 Dr Mora [X] Obesity H&P p312/12 Dr Mora Present Treatments Results and Location in Medical Record [X] Aspirin Chewable 84 mg oral AUG 04 [X] IVICardiazem 25 mg AUG 04 [X] IV Lovenox 100 mg AUG 04 [X] IV Lasix 40 mg AUG 04 [X] Cardiology consult Trever Meyer 12/12 [X] IGNACIO with Cardioversion Operative report Dr Montes 12/13 CDS/Process Operator Signature: Jennifer Wells Phone #: ext [phone] Date/Time: 12/18/19 0639 This is a permanent part of the Medical Record [facility]
== END 2019-12-16 11:56 | disposition home or self-care (01) | DRG 308 ==
LOC: ERS 03:38 → IMCU/EMU 05:20 → ERHOLD 05:20 → IMCU/EMU 15:58 → 2SE 12-15 01:36
PROVIDERS: ADMIT Internal Medicine; ATTEND Internal Medicine
PROC: 5A2204Z Restoration of Cardiac Rhythm, Single (ICD-10-PCS; principal; 2019-12-14)
PROC: B245ZZ4 Ultrasonography of Left Heart, Transesophageal (ICD-10-PCS; 2019-12-14)
DX: I48.0 Paroxysmal atrial fibrillation (principal); J96.01 Acute respiratory failure with hypoxia; I24.8 Other forms of acute ischemic heart disease; N17.9 Acute kidney failure, unspecified; Z68.41 Body mass index [BMI] 40.0-44.9, adult; I50.42 Chronic combined systolic (congestive) and diastolic (congestive) heart failure; Z20.828 Contact with and (suspected) exposure to other viral communicable diseases; M10.9 Gout, unspecified; E66.01 Morbid (severe) obesity due to excess calories; I34.0 Nonrheumatic mitral (valve) insufficiency; E78.5 Hyperlipidemia, unspecified; E78.00 Pure hypercholesterolemia, unspecified; I11.0 Hypertensive heart disease with heart failure; Z86.73 Personal history of transient ischemic attack (TIA), and cerebral infarction without residual deficits; Z79.899 Other long term (current) drug therapy; Z79.82 Long term (current) use of aspirin
CPT/HCPCS: 36415; 71045; 80053; 80061; 82553; 83036; 83880; 84443; 84484; 85025; 92960; 93005; 93010; 93306; 93312; 96365; 96366; 96376; J1650; J1940; J2704; J3490; U0002

== ENCOUNTER 2020-01-01 21:24 | Observation (INO) | payer MEDICARE, OTHER ==
--- NOTE | 2020-01-01 22:09 | RAD ---
XR Chest 1 View Portable HISTORY: Shortness of breath COMPARISON: 12/13/2019 FINDINGS: The heart is enlarged. Patchy peripheral opacities is seen in the mid and lower lung parker . No pneumothoraces or large effusions are identified.
[2020-01-01 22:22] LABS: #Basophils 0.1 thou/uL (0.0-0.2); #Eosinphils 0.2 thou/uL (0.0-0.7); #Lymphocytes 2.7 thou/uL (1.20-3.40); #Monocytes 0.7 thou/uL (0.11-0.59); #Neutrophils 6.1 thou/uL (1.40-6.50); %Basophils 0.8 % (0.0-1.0); %Eosinophils 1.9 % (0.0-10.0); %Lymphocytes 27.7 % (21.0-51.0); %Monocytes 7.3 % (0.0-10.0); %Neutrophils 62.3 % (42.0-75.0); Hemoglobin 12.5 g/dL (14.0-18.0); Mean Corpuscular HGB CONC 31.2 g/dL (32.0-36.0); Mean Corpuscular Hemoglobin 29.9 pg (27.0-31.0); Mean Corpuscular Volume 95.8 fL (78.0-98.0); Mean Platelet Volume 7.5 fL (7.4-10.4); Platelet Count 312 thou/uL (130-400); RBC Distribution Width 14.1 % (11.5-14.5); Red Blood Cell (RBC) Count 4.19 mill/uL (4.70-6.10); White Blood Cell (WBC) Count 9.7 thou/uL (4.8-10.8)
[2020-01-01 22:36] LABS: Bacteria/HPF None Seen HPF (None Seen); Bilirubin Negative (Negative); Blood, Urine 1+ (Negative); Clarity Clear (Clear); Glucose, Urine (Dipstick) Normal (Negative); Ketone, Urine Negative (Negative); Leukocyte Negative Leu/uL (Negative); Nitrite Negative (Negative); Protein, Urine (Dipstick) 50 mg/dL (Neg-Trace); RBC/HPF 0-3 HPF (0-3); Specific Gravity, Urine 1.024 (1.002-1.036); Squamous Epithelial 0-3 HPF (0-3); Urobilinogen Normal mg/dL (Less than 2); WBC/HPF 0-3 HPF (0-3); pH, Urine 5.5 (5.0-9.0)
[2020-01-01 22:38] LABS: ALT (SGPT) 21 U/L (8-55); AST (SGOT) 20 U/L (5-34); Albumin 4.1 g/dL (3.4-4.8); Alkaline Phosphatase 112 U/L (40-110); Anion Gap 12 mmol/L (10-20); BUN (Urea Nitrogen) 24 mg/dL (8.4-25.7); Bilirubin, Total 0.7 mg/dL (0.2-1.2); Calc. Creatinine Clearance 0 mL/min (70-130); Calcium 9.4 mg/dL (7.8-10.44); Carbon Dioxide 25 mmol/L (23-31); Chloride 107 mmol/L (98-107); Estimated GFR-MDRD 54; Globulin 3.3 g/dL (2.4-3.5); Glucose 111 mg/dL (80-115); Potassium 4.3 mmol/L (3.5-5.1); Protein, Total 7.4 g/dL (5.8-8.1); Sodium 140 mmol/L (136-145)
[2020-01-01] MEDS ORDERED: Furosemide 40 MG/4 ML VIAL ONE (23:23)
[2020-01-02 02:01] LABS: SARS-CoV-2 NAA Rapid Test Not Detected (NotDetected)
[2020-01-02 02:58] VITALS: BMI 44.0
[2020-01-02] MEDS ORDERED: Acetaminophen 325 MG TAB PO PRN (03:11)
[2020-01-02] MEDS ORDERED: Acetaminophen 650 MG Suppository PR PRN (03:11)
[2020-01-02] MEDS ORDERED: Melatonin 3 MG TAB PO PRN (03:25)
--- NOTE | 2020-01-02 03:25 | PDOC.HHP ---
Hospitalist HPI - History of Present Illness Shortness of breath History of Present Illness: Patient presents complaining of severe shortness of breath that occurred while working in his yard feeing his chickens. Patient states he normally becomes short of breath with mild exertion but today it was much worse than usual. He felt like he couldn't catch his breath. He was hospitalized 2 weeks ago during which time he had similar symptoms. He was treated with Lasix which helped his symptoms improve significantly. He has had trouble sleeping flat on his back and last night it was difficult for him to fall asleep while laying on his back due to sob. Patient denies any fever, chills or sweats. Cough occasional and dry. No lightheadedness or dizziness. No nausea or vomiting. No abdominal pain. Denies any urinary symptoms. No bowel changes. All other review of systems are negative. Recent admission last month, found to have new onset Afib RVR. He had an unsuccessful attempt at cardiac ablation. Repeat recommended as outpatient. Patient seen by Dr. Montes at that time. Rate control achieved with Cardizem. Patient started on Eliquis. During admission he had an Echo done showing EF 45-50%. Repeat recommended 2-3 months. ED COURSE: EKG showed afib with controlled HR of 88. No ST or T wave changes. CXR showed an enlarged heart. Patchy peripheral opacities is seen in the mid and lower lung parker. No pneumothoraces or large effusions are identified. Patient suspected to be in fluid overload and was given Lasix 40 mg IV. PAST MEDICAL HISTORY: 1. Gout 2. GERD 3. Hyperlipidemia. 4. Hypertension. 5. Obesity. 6. Depression. 7. Atrial fibrillation. PAST SURGICAL HISTORY: 1. Kidney stent. 2. Cardiac ablation, failed attempt to control afib. SOCIAL HISTORY: Patient drinks socially, rarely, Patient denies drug use, Patient has no smoking history. FAMILY HISTORY: Noncontributory. ALLERGIES: No known drug allergies. CURRENT MEDICATIONS: 1. Metoprolol succinate 25 mg PO daily. 2. Aspirin 81 mg PO daily. 3. Calcium 500 PO daily. 4. Famotidine 20 mg PO daily. 5. Fish Oil daily. 6. Lisinopril 5 mg PO daily. 7. Vitamin D 3. 8. Allopurinol 300 mg PO daily. 9. Atorvastatin 40 mg PO daily. 10. Paroxetine 20 mg PO daily. 11. Eliquis 5 mg PO BID. 12. Alprazolam 0.35 mg PO daily 13. Cardizem 360 mg PO daily. 14. Magnesium 250 mg PO daily. Hospitalist History - Past Surgical History Past Surgical History: reports: no pertinent history - Social History Alcohol: reports: Occassional Drugs: reports: none - Exam General Appearance: NAD, awake alert General - other findings: Patient short of breath after getting back to bed from bathroom. Eye: PERRL, anicteric sclera ENT: normocephalic atraumatic, no oropharyngeal lesions, moist mucosa Neck: supple, symmetric, no lymphadenopathy Heart: RRR, no murmur, no gallops, no rubs, normal peripheral pulses Respiratory: CTAB, no wheezes, no ronchi, normal chest expansion Respiratory - other findings: decreased slightly at the bases. Gastrointestinal: soft (obese), non-tender, non-distended, normal bowel sounds, no guarding, no rigidity Extremities: no edema Skin: normal turgor, no lesions, no rashes Neurological: cranial nerve grossly intact, normal sensation to touch Musculoskeletal: normal tone, normal strength, no muscle wasting Psychiatric: normal affect, normal behavior, A&O x 3 Hospitalist Results - Labs Result Diagrams: 01/01/20 21:56 01/01/20 21:56 Lab results: WBC 9.7 thou/uL (4.8-10.8) 01/01/20 21:56 Hgb 12.5 g/dL (14.0-18.0) L 01/01/20 21:56 Hct 40.1 % (42.0-52.0) L 01/01/20 21:56 MCV 95.8 fL (78.0-98.0) 01/01/20 21:56 Plt Count 312 thou/uL (130-400) 01/01/20 21:56 Neutrophils % 62.3 % (42.0-75.0) 01/01/20 21:56 Sodium 140 mmol/L (136-145) 01/01/20 21:56 Potassium 4.3 mmol/L (3.5-5.1) 01/01/20 21:56 Chloride 107 mmol/L (98-107) 01/01/20 21:56 Carbon Dioxide 25 mmol/L (23-31) 01/01/20 21:56 BUN 24 mg/dL (8.4-25.7) 01/01/20 21:56 Creatinine 1.32 mg/dL (0.7-1.3) H 01/01/20 21:56 Glucose 111 mg/dL (80-115) 01/01/20 21:56 Calcium 9.4 mg/dL (7.8-10.44) 01/01/20 21:56 Total Bilirubin 0.7 mg/dL (0.2-1.2) 01/01/20 21:56 AST 20 U/L (5-34) 01/01/20 21:56 ALT 21 U/L (8-55) 01/01/20 21:56 Alkaline Phosphatase 112 U/L (40-110) H 01/01/20 21:56 Troponin I 0.020 ng/mL (< 0.028) 01/01/20 21:56 B-Natriuretic Peptide 123.6 pg/mL (0-100) H 01/01/20 21:56 Serum Total Protein 7.4 g/dL (5.8-8.1) 01/01/20 21:56 Albumin 4.1 g/dL (3.4-4.8) 01/01/20 21:56 Urine Ketones Negative mg/dL (Negative) 01/01/20 22:19 Urine Blood 1+ (Negative) A 01/01/20 22:19 Urine Nitrite Negative (Negative) 01/01/20 22:19 Ur Leukocyte Esterase Negative Jessica/uL (Negative) 01/01/20 22:19 Urine RBC 0-3 HPF (0-3) 01/01/20 22:19 Urine WBC 0-3 HPF (0-3) 01/01/20 22:19 Ur Squamous Epith Cells 0-3 HPF (0-3) 01/01/20 22:19 Urine Bacteria None Seen HPF (None Seen) 01/01/20 22:19 Hospitalist H&P A/P - Problem (1) OSMANI (acute kidney injury) Code(s): N17.9 - ACUTE KIDNEY FAILURE, UNSPECIFIED Status: Acute (2) ONEIL (dyspnea on exertion) Code(s): R06.00 - DYSPNEA, UNSPECIFIED Status: Acute (3) Atrial fibrillation Code(s): I48.91 - UNSPECIFIED ATRIAL FIBRILLATION Status: Acute (4) Severe mitral regurgitation Code(s): I34.0 - NONRHEUMATIC MITRAL (VALVE) INSUFFICIENCY Status: Chronic (5) HTN (hypertension) Code(s): I10 - ESSENTIAL (PRIMARY) HYPERTENSION Status: Chronic (6) Hypercholesteremia Code(s): E78.00 - PURE HYPERCHOLESTEROLEMIA, UNSPECIFIED Status: Chronic (7) Obese Code(s): E66.9 - OBESITY, UNSPECIFIED Status: Chronic (8) Gout Code(s): M10.9 - GOUT, UNSPECIFIED Status: Chronic - Plan Plan: Cardiac monitoring. Notable improvement in breathing after Lasix, per patient. Continue Lasix 20 mg IV BID. HF Disease management consulted. Repeat labs in the AM. Walking program consulted. Monitor BP. GI Prophylaxis with Famotidine. DVT Prophylaxis with mechanical SCDs. CODE STATUS FULL Surrogate decision maker: His sister Denisha Cox.
[2020-01-02 04:43] LABS: #Basophils 0.1 thou/uL (0.0-0.2); #Eosinphils 0.2 thou/uL (0.0-0.7); #Lymphocytes 2.5 thou/uL (1.20-3.40); #Monocytes 0.9 thou/uL (0.11-0.59); #Neutrophils 6.5 thou/uL (1.40-6.50); %Basophils 0.7 % (0.0-1.0); %Eosinophils 1.9 % (0.0-10.0); %Lymphocytes 24.9 % (21.0-51.0); %Monocytes 8.7 % (0.0-10.0); %Neutrophils 63.8 % (42.0-75.0); Hemoglobin 12.6 g/dL (14.0-18.0); Mean Corpuscular HGB CONC 30.8 g/dL (32.0-36.0); Mean Corpuscular Hemoglobin 29.4 pg (27.0-31.0); Mean Corpuscular Volume 95.5 fL (78.0-98.0); Mean Platelet Volume 7.4 fL (7.4-10.4); Platelet Count 318 thou/uL (130-400); RBC Distribution Width 14.2 % (11.5-14.5); Red Blood Cell (RBC) Count 4.29 mill/uL (4.70-6.10); White Blood Cell (WBC) Count 10.1 thou/uL (4.8-10.8)
[2020-01-02 04:57] LABS: Anion Gap 12 mmol/L (10-20); BUN (Urea Nitrogen) 21 mg/dL (8.4-25.7); Calc. Creatinine Clearance 99 mL/min (70-130); Calcium 9.5 mg/dL (7.8-10.44); Carbon Dioxide 26 mmol/L (23-31); Chloride 106 mmol/L (98-107); Estimated GFR-MDRD 53; Glucose 119 mg/dL (80-115); Magnesium 1.9 mg/dL (1.6-2.6); Potassium 4.1 mmol/L (3.5-5.1); Sodium 140 mmol/L (136-145)
[2020-01-02] MEDS: Furosemide 40 MG/4 ML VIAL SLOW IVP SCH ×2 (06:09→15:20)
[2020-01-02] MEDS ORDERED: Famotidine 20 MG TAB PO SCH (09:00)
[2020-01-02] MEDS ORDERED: Lisinopril 5 MG TAB PO SCH (09:00)
[2020-01-02] MEDS ORDERED: Aspirin Chewable 81 MG TAB PO SCH (09:00)
[2020-01-02] MEDS ORDERED: Magnesium Oxide 250 MG TAB PO SCH (09:00)
[2020-01-02] MEDS ORDERED: Aspirin 81 mg Enteric Coated Tablet PO SCH (09:00)
[2020-01-02] MEDS ORDERED: Apixaban 5 MG TAB PO SCH (09:00)
[2020-01-02] MEDS ORDERED: Allopurinol 300 MG TAB PO SCH (09:00)
[2020-01-02] MEDS ORDERED: PARoxetine 20 MG TAB PO SCH (09:00)
[2020-01-02] MEDS ORDERED: Prevnar 13-Val Conj/PF 0.5 ML SYRINGE IM ONE (09:00)
[2020-01-02 15:29] VITALS: BP 117/79; TEMP 98.3
[2020-01-02] MEDS ORDERED: Atorvastatin Calcium 40 MG TAB PO SCH (21:00)
--- NOTE | 2020-01-03 13:54 | DIS ---
DATE OF ADMISSION: 01/01/2020 DATE OF DISCHARGE: 01/02/2020 DISCHARGE DIAGNOSES: 1. Acute systolic congestive heart failure. 2. Atrial fibrillation. 3. Severe mitral regurgitation. 4. Hypertension. 5. Hyperlipidemia. 6. Obesity. 7. Gout. 8. Dyspnea on exertion. 9. Chronic kidney disease, stage 3. HISTORY: The patient is a 64-year-old male, who had recently been admitted with new-onset atrial fibrillation. The patient had unsuccessful attempted cardioversion and subsequently was started on a rate control and anticoagulation. His echocardiogram at that time showed an EF of 45% to 50% with dilated left atrium, severe eccentric mitral regurgitation and moderately elevated pulmonary pressures. Once the patient's rate control was anticoagulated, he was discharged to home. He subsequently came back. The patient presented to the ER reporting shortness of breath and dyspnea on exertion. His chest x-ray showed some peripheral opacities in the mid and lower lung parker. A COVID test, which was unremarkable. He was treated with diuretics and responded very well. He subsequently felt completely better and back to his baseline and was eager to go because of his failed cardioversion. The plan was for him to follow up with Dr. Bhatti for consultation for ablation. He was discussed with Dr. Montes and with Genoveva Cotter with the EP Service, both of whom felt it was appropriate for the patient to discharge on diuretics and continue to plan for followup with Dr. Bhatti the subsequent week. PHYSICAL EXAMINATION: VITAL SIGNS: At the time of discharge, temperature was 98.3, pulse 75, respirations 19, O2 saturation 95% on room air, and blood pressure 117/79. GENERAL: He was awake and alert, obese, pleasant, cooperative. HEART: Regular. LUNGS: Clear. DISPOSITION: The patient is discharged to home. He is to have a heart-healthy diet. ACTIVITY: His activity level is to be modest exertion and no work until he is seen next Wednesday by Dr. Bhatti. MEDICATIONS: Include; 1. Lasix 20 mg p.o. daily. 2. Potassium 10 mEq every other day. 3. He will continue aspirin 81 mg daily. 4. Allopurinol 300 mg daily. 5. Paroxetine 20 mg daily. 6. Atorvastatin 40 mg at bedtime. 7. Omeprazole 20 mg daily. 8. Apixaban 5 mg b.i.d. 9. Diltiazem 360 mg daily. 10. Lisinopril 5 mg daily. 11. Alprazolam p.r.n. 12. Famotidine 20 mg p.o. daily. 13. Fish oil 1000 mg capsule t.i.d. 14. Magnesium 250 mg p.o. daily. 15. Calcium with vitamin D one p.o. daily. FOLLOWUP: He is to follow up with Dr. Bhatti as scheduled next week and he is strongly encouraged to establish with a primary care provider as well. He can return to the hospital at anytime if he has the need to do so. Job ID: [id number] MTDD
== END 2020-01-02 17:25 | disposition home or self-care (01) ==
LOC: ERS 21:24 → 2NO 23:33
PROVIDERS: ADMIT Internal Medicine; ATTEND Internal Medicine
DX: I13.0 Hypertensive heart and chronic kidney disease with heart failure and stage 1 through stage 4 chronic kidney disease, or unspecified chronic kidney disease (principal); N18.3 Chronic kidney disease, stage 3 (moderate); I50.21 Acute systolic (congestive) heart failure; N17.9 Acute kidney failure, unspecified; I48.91 Unspecified atrial fibrillation; I34.0 Nonrheumatic mitral (valve) insufficiency; E78.5 Hyperlipidemia, unspecified; M10.9 Gout, unspecified; K21.9 Gastro-esophageal reflux disease without esophagitis; F32.9 Major depressive disorder, single episode, unspecified; E78.00 Pure hypercholesterolemia, unspecified; E66.9 Obesity, unspecified; Z68.41 Body mass index [BMI] 40.0-44.9, adult; Z79.01 Long term (current) use of anticoagulants; Z79.82 Long term (current) use of aspirin; Z79.899 Other long term (current) drug therapy; Z20.828 Contact with and (suspected) exposure to other viral communicable diseases
CPT/HCPCS: 71045; 80048; 80053; 83735; 83880 ×2; 84484; 85025 ×2; 93005; 96374; 97139; 99285; U0002; 36415; 81003; 81015; 87635; 96376; G0378; J1940; U0003

== ENCOUNTER 2020-01-17 12:02 | Inpatient (IN) | payer MEDICARE, OTHER ==
[2020-01-17 12:33] LABS: #Basophils 0.1 thou/uL (0.0-0.2); #Eosinphils 0.2 thou/uL (0.0-0.7); #Lymphocytes 2.4 thou/uL (1.20-3.40); #Monocytes 0.9 thou/uL (0.11-0.59); %Basophils 0.9 % (0.0-1.0); %Eosinophils 1.8 % (0.0-10.0); %Lymphocytes 25.3 % (21.0-51.0); %Monocytes 9.1 % (0.0-10.0); Mean Corpuscular HGB CONC 32.6 g/dL (32.0-36.0); Mean Corpuscular Hemoglobin 31.1 pg (27.0-31.0); Mean Corpuscular Volume 95.3 fL (78.0-98.0); Mean Platelet Volume 7.5 fL (7.4-10.4); Platelet Count 290 thou/uL (130-400); RBC Distribution Width 13.9 % (11.5-14.5); Red Blood Cell (RBC) Count 4.17 mill/uL (4.70-6.10); White Blood Cell (WBC) Count 9.6 thou/uL (4.8-10.8)
--- NOTE | 2020-01-17 12:40 | RAD ---
XR Chest 1 View Portable History: Cough and shortness of breath Comparison: Radiograph January 01, 2020 Findings: Heart size is enlarged. Moderate edema. Moderate effusions. No pneumothorax. No acute osseo us abnormality. Impression: Moderate decompensated congestive heart failure.
[2020-01-17 12:59] LABS: ALT (SGPT) 16 U/L (8-55); AST (SGOT) 16 U/L (5-34); Albumin 4.1 g/dL (3.4-4.8); Alkaline Phosphatase 113 U/L (40-110); Anion Gap 11 mmol/L (10-20); BUN (Urea Nitrogen) 30 mg/dL (8.4-25.7); Bilirubin, Total 0.9 mg/dL (0.2-1.2); Calc. Creatinine Clearance 0 mL/min (70-130); Calcium 9.3 mg/dL (7.8-10.44); Carbon Dioxide 29 mmol/L (23-31); Chloride 105 mmol/L (98-107); Estimated GFR-MDRD 42; Globulin 3.5 g/dL (2.4-3.5); Glucose 100 mg/dL (80-115); Lipase 48 U/L (8-78); Potassium 4.3 mmol/L (3.5-5.1); Protein, Total 7.6 g/dL (5.8-8.1); Sodium 141 mmol/L (136-145)
[2020-01-17 16:04] LABS: Troponin I 0.025 ng/mL (< 0.028)
[2020-01-17] MEDS ORDERED: Acetaminophen 325 MG TAB PO PRN (16:46)
[2020-01-17] MEDS ORDERED: Furosemide 20 MG/2 ML VIAL SLOW IVP SCH (17:00)
--- NOTE | 2020-01-17 17:01 | PDOC.HHP ---
Hospitalist HPI - History of Present Illness Shortness of breath History of Present Illness: Patient is a 64-year-old male with known history of heart failure and atrial fibrillation. He states he has had a dry cough, shortness of breath and orthopnea for the past week. He states that there is some chest pain discomfort intermittently at times when he feels the shortness of breath. He does state that he has recently been admitted to the hospital for this atrial fibrillation with shortness of breath. Patient states that his dry weight is 260 pounds and today he was at 271 pounds. He has been hospitalized twice previously this past month where he received Lasix and had much improvement with his symptoms. He denies any fever, chills or sweats, lightheadedness, dizziness, nausea, vomiting, abdominal pain, urinary symptoms, bowel changes. He states that Dr. Bhatti is his EP physician and is going to schedule him for an ablation in the near future. ED Course: Today in the ER they completed lab work, place the patient on oxygen, and EKG, and a chest x-ray. Hospitalist ROS - Review of Systems Constitutional: denies: fever, chills, sweats, weakness, malaise, other Eyes: denies: pain, vision change, conjunctivae inflammation, eyelid inflammation, redness, other ENT: denies: ear pain, ear discharge, nose pain, nose discharge, nose congestion , mouth pain, mouth swelling, throat pain, throat swelling, other Respiratory: reports: cough, dry, shortness of breath, SOB with excertion Cardiovascular: denies: chest pain, palpitations, orthopnea, paroxysmal noc. dyspnea, edema, light headedness, other Gastrointestinal: denies: nausea, vomiting, abdominal pain, diarrhea, constipation, melena, hematochezia, other Genitourinary: denies: dysuria, frequency, incontinence, hematuria, retention, other Musculoskeletal: denies: neck pain, shoulder pain, arm pain, back pain, hand pain, leg pain, foot pain, other Skin: denies: rash, lesions, collins, bruising, other Neurological: denies: weakness, numbness, incoordination, change in speech, confusion, seizures, other All other systems reviewed; all pertinent +/- noted in HPI/Subj - Medication Medications: No known drug allergies Current medications: Lasix 20 mg p.o. daily Potassium 10 mEq every other day Aspirin 81 mg daily Allopurinol 300 mg daily Paroxetine 20 mg daily Atorvastatin 40 mg at bedtime Omeprazole 20 mg daily Apixaban 5 mg twice a day Diltiazem 360 mg daily Lisinopril 5 mg daily Alprazolam as needed Famotidine 20 mg p.o. daily Fish oil 3 times daily Magnesium 250 mg p.o. daily Calcium with vitamin D 1 daily Hospitalist History - Past Medical History Source: patient Cardiac: reports: AFIB, CHF, HTN, Hyperlipidemia, Other (Mitral regurgitation) Rheumatologic: reports: Gout Renal/: reports: Chronic renal insuff - Past Surgical History Past Surgical History: reports: no pertinent history - Family History Family History: reports: no pertinent history - Social History Smoking Status: Never smoker Alcohol: reports: Occassional Drugs: reports: none - Exam General Appearance: NAD, awake alert Eye: PERRL, anicteric sclera ENT: normocephalic atraumatic, moist mucosa Neck: supple, no JVD, no lymphadenopathy Heart: RRR, no murmur, diminshed peripheral pulses Heart - other findings: S3 Respiratory: rhonchi, wheezes Gastrointestinal: soft, non-tender, non-distended, normal bowel sounds Extremities: no clubbing, 1+ LE edema Neurological: no weakness Psychiatric: normal affect, normal behavior Hospitalist Results - Labs Result Diagrams: 01/17/20 12:21 01/17/20 12:21 Lab results: WBC 9.6 thou/uL (4.8-10.8) 01/17/20 12:21 Hgb 13.0 g/dL (14.0-18.0) L 01/17/20 12:21 Hct 39.8 % (42.0-52.0) L 01/17/20 12:21 MCV 95.3 fL (78.0-98.0) 01/17/20 12:21 Plt Count 290 thou/uL (130-400) 01/17/20 12:21 Neutrophils % 63.0 % (42.0-75.0) 01/17/20 12:21 Sodium 141 mmol/L (136-145) 01/17/20 12:21 Potassium 4.3 mmol/L (3.5-5.1) 01/17/20 12:21 Chloride 105 mmol/L (98-107) 01/17/20 12:21 Carbon Dioxide 29 mmol/L (23-31) 01/17/20 12:21 BUN 30 mg/dL (8.4-25.7) H 01/17/20 12:21 Creatinine 1.65 mg/dL (0.7-1.3) H 01/17/20 12:21 Glucose 100 mg/dL (80-115) 01/17/20 12:21 Lactic Acid 0.7 mmol/L (0.5-2.2) 01/17/20 12:21 Calcium 9.3 mg/dL (7.8-10.44) 01/17/20 12:21 Total Bilirubin 0.9 mg/dL (0.2-1.2) 01/17/20 12:21 AST 16 U/L (5-34) 01/17/20 12:21 ALT 16 U/L (8-55) 01/17/20 12:21 Alkaline Phosphatase 113 U/L (40-110) H 01/17/20 12:21 Troponin I 0.025 ng/mL (< 0.028) 01/17/20 15:29 B-Natriuretic Peptide 248.6 pg/mL (0-100) H 01/17/20 12:21 Serum Total Protein 7.6 g/dL (5.8-8.1) 01/17/20 12:21 Albumin 4.1 g/dL (3.4-4.8) 01/17/20 12:21 Lipase 48 U/L (8-78) 01/17/20 12:21 Laboratory Tests 01/17/20 01/17/20 01/17/20 12:21 12:21 12:21 Lactic Acid 0.7 Troponin I 0.021 B-Natriuretic Peptide 248.6 H 01/17/20 15:29 Lactic Acid Troponin I 0.025 B-Natriuretic Peptide - EKG Interpretation EKG: Atrial fibrillation with a rate of 88 - Radiology Interpretation MRI - abdomen Status: report reviewed by me Additional Comment: Impression: Moderate decompensated congestive heart failure Hospitalist H&P A/P - Problem (1) Acute exacerbation of CHF (congestive heart failure) Code(s): I50.9 - HEART FAILURE, UNSPECIFIED Status: Acute (2) Hypoxia Code(s): R09.02 - HYPOXEMIA Status: Acute (3) Atrial fibrillation Code(s): I48.91 - UNSPECIFIED ATRIAL FIBRILLATION Status: Chronic (4) HTN (hypertension) Code(s): I10 - ESSENTIAL (PRIMARY) HYPERTENSION Status: Chronic (5) Hypercholesteremia Code(s): E78.00 - PURE HYPERCHOLESTEROLEMIA, UNSPECIFIED Status: Chronic - Plan Plan: Acute CHF exacerbation Gentle diuresis Cardiology consult in a.m. Echo on 12/14/2019 showed 45 to 50% EF Hypoxia Prior patient currently requiring 2 L of oxygen, not normally oxygen dependent at home We will try to wean off oxygen once fluid begins to come off Atrial fibrillation Rate controlled at this time Monitor on telemetry Consult cardiology and EP Hypertension Vital signs stable Continue to monitor every 4 hours Hyperlipidemia Restart home medications when reconciled Code status: FULL Surrogate decision maker- sister Patient discussed with Dr. Bowen
[2020-01-17] MEDS ORDERED: Aspirin Chewable 81 MG TAB PO SCH (19:00)
[2020-01-17 19:14] LABS: Troponin I 0.019 ng/mL (< 0.028)
[2020-01-17] MEDS: Famotidine 20 MG TAB PO SCH (20:57)
[2020-01-17 22:06] VITALS: BMI 42.6
[2020-01-18] MEDS: Furosemide 20 MG/2 ML VIAL SLOW IVP SCH ×2 (05:11→15:06)
[2020-01-18 05:13] LABS: #Basophils 0.1 thou/uL (0.0-0.2); #Eosinphils 0.2 thou/uL (0.0-0.7); #Lymphocytes 2.7 thou/uL (1.20-3.40); #Monocytes 0.7 thou/uL (0.11-0.59); #Neutrophils 5.9 thou/uL (1.40-6.50); %Basophils 0.7 % (0.0-1.0); %Eosinophils 2.3 % (0.0-10.0); %Lymphocytes 28.1 % (21.0-51.0); %Monocytes 7.7 % (0.0-10.0); %Neutrophils 61.3 % (42.0-75.0); Hemoglobin 13.3 g/dL (14.0-18.0); Mean Corpuscular HGB CONC 31.2 g/dL (32.0-36.0); Mean Corpuscular Hemoglobin 29.9 pg (27.0-31.0); Mean Corpuscular Volume 95.8 fL (78.0-98.0); Mean Platelet Volume 7.6 fL (7.4-10.4); Platelet Count 289 thou/uL (130-400); RBC Distribution Width 13.9 % (11.5-14.5); Red Blood Cell (RBC) Count 4.45 mill/uL (4.70-6.10); White Blood Cell (WBC) Count 9.7 thou/uL (4.8-10.8)
[2020-01-18 05:54] LABS: Anion Gap 16 mmol/L (10-20); BUN (Urea Nitrogen) 29 mg/dL (8.4-25.7); Calc. Creatinine Clearance 91 mL/min (70-130); Calcium 9.3 mg/dL (7.8-10.44); Carbon Dioxide 25 mmol/L (23-31); Chloride 107 mmol/L (98-107); Estimated GFR-MDRD 50; Glucose 106 mg/dL (80-115); Potassium 4.7 mmol/L (3.5-5.1); Sodium 143 mmol/L (136-145)
[2020-01-18] MEDS: Famotidine 20 MG TAB PO SCH ×2 (08:39→20:38)
[2020-01-18] MEDS: Aspirin Chewable 81 MG TAB PO SCH (08:39)
[2020-01-18] MEDS ORDERED: Prevnar 13-Val Conj/PF 0.5 ML SYRINGE IM ONE (09:00)
[2020-01-18] MEDS ORDERED: PROPOFOL 200 MG/20 ML VIAL ONE (10:15)
[2020-01-18 14:48] LABS: SARS-CoV-2 MS2 Positive; SARS-CoV-2 N Gene Negative; SARS-CoV-2 S Gene Negative; SARS-CoV-2 by NAA Not Detected (NotDetected); SARS-CoV-2 orf1ab Negative
--- NOTE | 2020-01-18 15:59 | PDOC.HOSPP ---
- Subjective Encounter Date: 01/18/20 Encounter Time: 15:57 Subjective: Mr. Angeles was seen today in follow-up of CHF exacerbation and AFIB. He has returned from cardioversion. He does not have any complaints. - Objective Vital Signs & Weight: Vital Signs (12 hours) Temp Pulse Pulse Pulse Resp BP BP 01/18/20 12:00 97.6 F 78 18 01/18/20 09:57 83 116 H 142/91 H 163/95 H 01/18/20 07:01 98.4 F 68 18 BP BP Pulse Ox Pulse Ox Pulse Ox 01/18/20 12:00 143/93 H 95 01/18/20 09:57 95 94 L 01/18/20 07:01 143/84 H 96 Weight Weight 272 lb 4.722 oz I&O: 01/17/20 01/18/20 01/19/20 06:59 06:59 06:59 Intake Total 240 Output Total 500 Balance -260 Result Diagrams: 01/18/20 04:36 01/18/20 04:36 Hospitalist ROS - Medication Medications: Active Medications Generic Name Dose Route Start Last Admin Trade Name Freq PRN Reason Stop Dose Admin Aspirin 81 mg 01/18/20 09:00 01/18/20 08:39 Aspirin Chewable PO 81 mg DAILY DENNIS Administration Famotidine 20 mg 01/17/20 21:00 01/18/20 08:39 Pepcid PO 20 mg BID DENNIS Administration Furosemide 20 mg 01/18/20 06:00 01/18/20 15:06 Lasix SLOW IVP 20 mg 0600,1400 DENNIS Administration - Exam Eye: PERRL, anicteric sclera Heart: RRR, no murmur, no gallops, no rubs, normal peripheral pulses Respiratory: CTAB, no wheezes, no rales, no ronchi, normal chest expansion Gastrointestinal: soft, non-tender, non-distended, normal bowel sounds, no palpable masses Extremities: no cyanosis, 1+ LE edema Hosp A/P (1) Atrial fibrillation Code(s): I48.91 - UNSPECIFIED ATRIAL FIBRILLATION Status: Chronic (2) HTN (hypertension) Code(s): I10 - ESSENTIAL (PRIMARY) HYPERTENSION Status: Chronic (3) Hypercholesteremia Code(s): E78.00 - PURE HYPERCHOLESTEROLEMIA, UNSPECIFIED Status: Chronic (4) Acute on chronic diastolic heart failure Code(s): I50.33 - ACUTE ON CHRONIC DIASTOLIC (CONGESTIVE) HEART FAILURE Status : Acute - Plan * Acute on chronic diastolic heart failure- stable * AFIB- he is now in sinus after cardioversion * Resume Amiodarone, and Eliquis * HTN- blood pressure is a bit elevated- will re-start his home medications * Monitor in the hospital overnight
[2020-01-18] MEDS ORDERED: ALPRAZolam 0.25 MG TAB PO PRN (16:00)
--- NOTE | 2020-01-18 16:29 | CON ---
DATE OF CONSULTATION: 01/18/2020 HISTORY OF PRESENT ILLNESS: I am seeing Mr. Angeles to our [facility] in [place] for the following problems. 1. Atrial fibrillation/atypical flutter. a. Amiodarone initiated about a week ago as an outpatient noted. b. IGNACIO-guided cardioversion 12/14/2019 with ERAF. 2. Xymzb-mw-apkjdoq systolic/diastolic heart failure. a. 2D echo from 11/2019 revealing EF 45-50%, severe MR, following hypertension and ekqa-cn-arjttdnh tricuspid regurgitation, severe left atrial enlargement. 3. Morbid obesity with BMI 40. 4. History of renal stone and kidney stenting in 2011. 5. CHADS-VASc score of 4 with prior history of stroke, hypertension, age, on oral anticoagulation with Eliquis for about a month. ALLERGIES: NONE. MEDICATIONS: At home included: 1. Aspirin. 2. Allopurinol. 3. Paroxetine. 4. Atorvastatin. 5. Omeprazole. 6. Eliquis. 7. Alprazolam. 8. Famotidine. 9. [place]-3 fish oil. 10. Magnesium. 11. Calcium. 12. Furosemide. 13. Potassium. 14. Amiodarone 200 mg twice a day. 15. Diltiazem CD. SUBJECTIVE: Mr. Angeles came in with shortness of breath, orthopnea for last week. He also had a dry cough, atypical chest pain intermittently also noted. He is under his dry weight, which is about 260 pounds. His symptoms are somewhat similar to prior hospitalization last couple of months with fluid overload. He denies fever, chills, sweat, dizziness, or lightheadedness. No nausea or vomiting. No abdominal pain. No neurologic deficit. Rest of 12-point review of systems is otherwise unremarkable. PAST HISTORY: As above. This gentleman has been cared for by Dr. Montes and he consulted him as an outpatient. I have seen this gentleman about a week ago on January 08. SOCIAL HISTORY: He is a mailman contractor. Denies smoking, EtOH, or drug abuse. FAMILY HISTORY: Significant for a brother who had a myocardial infarction. Father had CHF. OBJECTIVE DATA: VITAL SIGNS: Blood pressure 142/84, heart rate 68, respirations 18, temperature 98.4 degrees Fahrenheit. GENERAL: This is a morbidly obese man, in no apparent distress. NECK: Supple. Jugular vein is difficult to visualize. CHEST: Coarse. No crackles. HEART: Irregularly irregular. S1 and S2 are variable. I do not hear murmur or gallop. ABDOMEN: Benign. Bowel sounds positive. EXTREMITIES: Lower extremity, there was 1+ bilateral edema. NEUROLOGIC: The patient is nonfocal. MUSCULOSKELETAL: No joint deformity. SKIN: Without rash. DATABASE: EKG is reviewed, reveals coarse atrial fibrillation, atrial flutter on January 16. Subsequent EKG did reveal atrial fibrillation and occasionally flutter likely typical is noted. LABORATORY DATA: White cell count is 9.7, hemoglobin is 13.3, and platelet count is 289. Sodium 143, potassium 4.7, BUN is 29, creatinine 1.42. BNP 248. Troponin I of 0.021, 0.025, 0.019 consecutively. The chest x-ray from admission reveals moderately decompensated CHF. ASSESSMENT AND PLAN: Mr. Angeles is a pleasant 64-year-old man with prior history of chronic diastolic/systolic heart failure, persisting atrial fibrillation despite prior IGNACIO-guided cardioversion. He is now anticoagulated over about a month. He has not been maintaining sinus rhythm despite the cardioversion. He has been started on amiodarone about a week ago and now he is back with fluid overload and diastolic heart failure exacerbation. His BNP is mildly elevated only. His blood pressure was markedly elevated on the . I discussed these issues with him. This gentleman has severe issues with his morbid obesity, diastolic heart failure, and valvular heart disease. As I discussed with them, maintaining sinus rhythm will be difficult. At this point, we are attempting taoism of sinus rhythm and medical stabilization with the help of amiodarone. He may have not received suction loading dose yet, but the last time seen in the hospital, may be able to consider cardioversion. Further medical stabilization with blood pressure control and optimization of care for his diastolic heart failure remain necessary prior to an upcoming ablation. Timing of that will be depending on his clinical progress. For now, continue oral anticoagulation as well. We will discuss with Dr. Montes. Thank you again for allowing me to participate in the care of this patient. Job ID: [id number] [facility]
--- NOTE | 2020-01-18 19:16 | CON ---
DATE OF CONSULTATION: REASON FOR CONSULTATION: Atrial fibrillation and congestive heart failure. HISTORY OF PRESENT ILLNESS: Mr. Angeles is a very pleasant 64-year-old gentleman, who I have seen and evaluated in the past. He has a history of persistent atrial fibrillation. He has undergone IGNACIO with cardioversion and failed. He was then placed on amiodarone. He has been on anticoagulation therapy over the last 4 weeks. Anticoagulation therapy was started on 12/14/2019. He states he has not missed a dose of anticoagulation treatment. He was placed on amiodarone 1 week ago. He recently presented to the hospital with recurrent tachycardia, palpitations, and heart failure. PAST MEDICAL HISTORY: As above including hypertension, obesity, gout, acid reflux, depression, chronic kidney disease, mitral regurgitation, and previous CVA. HOME MEDICATIONS: Include; 1. Alprazolam. 2. Atorvastatin. 3. Vitamin D. 4. Omeprazole. 5. Paroxetine. 6. Allopurinol. 7. Aspirin. 8. Lisinopril. 9. Diltiazem. 10. Eliquis. 11. Calcium. 12. Lasix. 13. Amiodarone 200 mg b.i.d. REVIEW OF SYSTEMS: A 10-point review of systems is reviewed as above, otherwise negative. PHYSICAL EXAMINATION: GENERAL: Patient is a pleasant male, who is in no acute distress. The patient appears their stated age. VITAL SIGNS: Blood pressure 150/97, pulse 89, and temperature 97.9. NEUROLOGIC: The patient is alert and oriented x3 with no focal neurologic deficits. HEENT: Sclerae without icterus. Mouth has moist mucous membranes with normal pallor. NECK: No JVD. Carotid upstroke brisk. No bruits bilaterally. LUNGS: Clear to auscultation with unlabored respirations. BACK: No scoliosis or kyphosis. CARDIAC: Irregularly irregular. ABDOMEN: Soft, nontender, nondistended. No peritoneal signs present. No hepatosplenomegaly. No abnormal striae. EXTREMITIES: 2+ femoral and 2+ dorsalis pedis pulses. No cyanosis, clubbing, or edema. SKIN: No gross abnormalities. PERTINENT LABORATORY DATA: Hemoglobin 13.3. Creatinine 1.42. IMPRESSION: 1. Atrial fibrillation. 2. Diastolic heart failure. RECOMMENDATIONS: Mr. Angeles has been loaded with amiodarone therapy over the last week. He was on 200 mg t.i.d. and then decreased to 200 mg b.i.d. this week. We will proceed with cardioversion. He states he has been on anticoagulation therapy over the last 4 weeks without missing a dose. I discussed procedure in full detail with Mr. Angeles. Risks include, but not limited to the following: Sign of stroke, need for repeat cardioversion, failed cardioversion as well as burning of skin. All questions were answered. Given the above, the patient agreed to proceed with above procedure. Job ID: [id number]
[2020-01-18] MEDS: Amiodarone 200 MG TAB PO SCH (20:38)
[2020-01-18] MEDS: Fish Oil 1,000 MG CAP PO SCH (20:38)
[2020-01-18] MEDS: Apixaban 5 MG TAB PO SCH (20:38)
[2020-01-18] MEDS ORDERED: Atorvastatin Calcium 40 MG TAB PO SCH (21:00)
[2020-01-19 04:29] LABS: #Eosinphils 0.3 thou/uL (0.0-0.7); #Lymphocytes 2.3 thou/uL (1.20-3.40); #Monocytes 0.8 thou/uL (0.11-0.59); #Neutrophils 6.4 thou/uL (1.40-6.50); %Basophils 0.4 % (0.0-1.0); %Eosinophils 2.8 % (0.0-10.0); %Lymphocytes 23.9 % (21.0-51.0); %Monocytes 8.2 % (0.0-10.0); %Neutrophils 64.8 % (42.0-75.0); Hemoglobin 13.4 g/dL (14.0-18.0); Mean Corpuscular HGB CONC 33.6 g/dL (32.0-36.0); Mean Corpuscular Hemoglobin 32.1 pg (27.0-31.0); Mean Corpuscular Volume 95.6 fL (78.0-98.0); Mean Platelet Volume 7.3 fL (7.4-10.4); Platelet Count 263 thou/uL (130-400); RBC Distribution Width 13.8 % (11.5-14.5); Red Blood Cell (RBC) Count 4.19 mill/uL (4.70-6.10); White Blood Cell (WBC) Count 9.8 thou/uL (4.8-10.8)
[2020-01-19 04:53] LABS: Anion Gap 15 mmol/L (10-20); BUN (Urea Nitrogen) 29 mg/dL (8.4-25.7); Calc. Creatinine Clearance 85 mL/min (70-130); Calcium 9.1 mg/dL (7.8-10.44); Carbon Dioxide 27 mmol/L (23-31); Chloride 102 mmol/L (98-107); Estimated GFR-MDRD 47; Glucose 106 mg/dL (80-115); Potassium 3.9 mmol/L (3.5-5.1); Sodium 140 mmol/L (136-145)
[2020-01-19] MEDS: Furosemide 20 MG/2 ML VIAL SLOW IVP SCH ×2 (05:34→15:13)
--- NOTE | 2020-01-19 08:41 | PDOC.HOSPP ---
- Subjective Encounter Date: 01/19/20 Encounter Time: 08:00 Subjective: Mr. Angeles was seen today in follow-up of CHF exacerbation, A. fib and status post cardioversion. He states he feels so much better being in a regular rhythm. He states his output has greatly improved. - Objective Vital Signs & Weight: Vital Signs (12 hours) Temp Pulse Resp BP BP Pulse Ox 01/19/20 07:27 97.9 F 92 18 151/100 H 94 L 01/19/20 04:00 98.5 F 85 18 168/92 H 93 L Weight Weight 267 lb I&O: 01/18/20 01/19/20 01/20/20 06:59 06:59 06:59 Intake Total 240 360 Output Total 500 650 Balance -260 -290 Result Diagrams: 01/19/20 04:10 01/19/20 04:10 EKG Reviewed by me: Yes (SR 1st AVB) Hospitalist ROS - Review of Systems Constitutional: denies: fever, chills, sweats, weakness, malaise, other Eyes: denies: pain, vision change, conjunctivae inflammation, eyelid inflammation, redness, other ENT: denies: ear pain, ear discharge, nose pain, nose discharge, nose congestion , mouth pain, mouth swelling, throat pain, throat swelling, other Respiratory: denies: cough, dry, shortness of breath, hemoptysis, SOB with excertion, pleuritic pain, sputum, wheezing, other Cardiovascular: denies: chest pain, palpitations, orthopnea, paroxysmal noc. dyspnea, edema, light headedness, other Gastrointestinal: denies: nausea, vomiting, abdominal pain, diarrhea, constipation, melena, hematochezia, other Genitourinary: denies: dysuria, frequency, incontinence, hematuria, retention, other Musculoskeletal: denies: neck pain, shoulder pain, arm pain, back pain, hand pain, leg pain, foot pain, other Skin: denies: rash, lesions, collins, bruising, other Neurological: denies: weakness, numbness, incoordination, change in speech, confusion, seizures, other All other systems reviewed; all pertinent +/- noted in HPI/Subj - Medication Medications: Active Medications Generic Name Dose Route Start Last Admin Trade Name Freq PRN Reason Stop Dose Admin Amiodarone HCl 200 mg 01/18/20:00 01/18/20 20:38 Cordarone PO 200 mg BID DENNIS Administration Apixaban 5 mg 01/18/20 21:00 01/18/20 20:38 Eliquis PO 5 mg BID DENNIS Administration Aspirin 81 mg 01/18/20 09:00 01/18/20 08:39 Aspirin Chewable PO 81 mg DAILY DENNIS Administration Atorvastatin Calcium 40 mg 01/18/20 21:00 01/18/20 20:38 Lipitor PO 40 mg HS DENNIS Administration Famotidine 20 mg 01/17/20 21:00 01/18/20 20:38 Pepcid PO 20 mg BID DENNIS Administration Fish Oil 1,000 mg 01/18/20 21:00 01/18/20 20:38 Fish Oil PO 1,000 mg TID DENNIS Administration Furosemide 20 mg 01/18/20 06:00 01/19/20 05:34 Lasix SLOW IVP 20 mg 0600,1400 DENNIS Administration - Exam General Appearance: NAD, awake alert Eye: PERRL, anicteric sclera ENT: normocephalic atraumatic, moist mucosa Neck: supple, no JVD, no lymphadenopathy Heart: RRR, no murmur, no gallops, no rubs, normal peripheral pulses Respiratory: CTAB, no wheezes, no rales, no ronchi, normal chest expansion Gastrointestinal: soft, non-tender, non-distended, normal bowel sounds Extremities: no cyanosis, 1+ LE edema Musculoskeletal: normal tone, normal strength Hosp A/P (1) Acute exacerbation of CHF (congestive heart failure) Code(s): I50.9 - HEART FAILURE, UNSPECIFIED Status: Acute (2) Hypoxia Code(s): R09.02 - HYPOXEMIA Status: Acute (3) Atrial fibrillation Code(s): I48.91 - UNSPECIFIED ATRIAL FIBRILLATION Status: Chronic (4) HTN (hypertension) Code(s): I10 - ESSENTIAL (PRIMARY) HYPERTENSION Status: Chronic (5) Hypercholesteremia Code(s): E78.00 - PURE HYPERCHOLESTEROLEMIA, UNSPECIFIED Status: Chronic - Plan Acute on chronic diastolic heart failurestable A. fibcurrently in sinus rhythm after cardioversion yesterday Amiodarone and Eliquis have been resumed Hypertensionhome medications were restarted last night Patient states that Dr. Magy is to come talk to him today about possible ablation next week
[2020-01-19] MEDS: Famotidine 20 MG TAB PO SCH (08:59)
[2020-01-19] MEDS: Aspirin Chewable 81 MG TAB PO SCH (08:59)
[2020-01-19] MEDS ORDERED: PARoxetine 20 MG TAB PO SCH (09:00)
[2020-01-19] MEDS ORDERED: Famotidine 20 MG TAB PO SCH (09:00)
[2020-01-19] MEDS ORDERED: Diltiazem HCl CD 300 mg Capsule PO SCH (09:00)
[2020-01-19] MEDS ORDERED: Magnesium Oxide 250 MG TAB PO SCH (09:00)
[2020-01-19] MEDS: Apixaban 5 MG TAB PO SCH (09:00)
[2020-01-19] MEDS ORDERED: Furosemide 20 MG TAB PO SCH (09:00)
[2020-01-19] MEDS: Amiodarone 200 MG TAB PO SCH (09:00)
[2020-01-19] MEDS ORDERED: Allopurinol 300 MG TAB PO SCH (09:00)
[2020-01-19] MEDS: Fish Oil 1,000 MG CAP PO SCH ×2 (09:00→15:13)
[2020-01-19] MEDS ORDERED: Aspirin Chewable 81 MG TAB PO SCH (09:00)
--- NOTE | 2020-01-19 09:20 | PRG ---
DATE OF SERVICE: 01/19/2020 SUBJECTIVE: Mr. Angeles is doing very well. No current complaints. No chest pain or pressure noted. He feels back to baseline. He remains in sinus rhythm. OBJECTIVE: VITAL SIGNS: Blood pressure 130/84, pulse 97, and temperature 97.5. LUNGS: Minimal wheezing bilaterally. HEART: Regular rate and rhythm. ABDOMEN: Soft, nontender, and nondistended. EXTREMITIES: No edema. PERTINENT LABORATORY DATA: Hemoglobin 13.4. Creatinine 1.51. IMPRESSION: 1. Atrial fibrillation, now in sinus rhythm. 2. Asthma. 3. Hypertension. RECOMMENDATIONS: Mr. Angeles is doing much better. Would continue current medical therapy with amiodarone in addition to Eliquis. He did ask a question about ablation. I have also spoken to his daughter. Ablation is certainly still a possibility. There is long-term toxicity with long-term amiodarone therapy including liver toxicity, thyroid toxicity, and lung toxicity. I did discuss this with both he and his daughter. There is a chance he reverts back to atrial fibrillation, and unfortunately, when he does, he proceed to the emergency room. At this point, I would recommend followup with me in 1 week. At that point, can sign paperwork to go back to work. We will decrease his diltiazem from 300 q.a.m. to 240 q.a.m. Otherwise, he is okay for discharge from a CV standpoint. Job ID: [id number]
--- NOTE | 2020-01-19 11:52 | PDOC.EP ---
- Subjective Date: 01/19/20 Time: 11:48 Interval History: Cardioverted yesterdya by dr Montes. Feeling much better. In SR. No PND, or orthopnea. - Review of Systems Constitutional: denies: chills, fever, malaise, sweats, weakness, other Respiratory: denies: cough, dry, hemoptysis, pleuritic pain, shortness of breath , SOB with excertion, sputum, wheezing, other Cardiology: denies: chest pain, edema, heart racing, light headedness, paroxysmal noc. dyspnea, orthopnea, palpitations, passing out, pleuritic pain, pressure, swelling, other Gastrointestinal: denies: abdominal pain, constipation, diarrhea, hematochezia, melena, nausea, vomitting, other - Objective Allergies/Adverse Reactions: Allergies Allergy/AdvReac Type Severity Reaction Status Date / Time No Known Drug Allergies Allergy Verified 01/02/20 03:06 Current Medications Acetaminophen (Tylenol) 650 mg PO Q4H PRN PRN Reason: Headache/Fever/Mild Pain (1-3) Allopurinol (Zyloprim) [address] [facility] Last Admin: 01/19/20 08:59 Dose: 300 mg Alprazolam (Xanax) 0.25 mg PO Q8H PRN PRN Reason: Anxiety Amiodarone HCl (Cordarone) [address] [facility] Last Admin: 01/19/20 09:00 Dose: 200 mg Apixaban (Eliquis) [address] [facility] Last Admin: 01/19/20 09:00 Dose: 5 mg Aspirin (Aspirin Chewable) [address] [facility] Last Admin: 01/19/20 08:59 Dose: 81 mg Aspirin (Aspirin Chewable) [address] [facility] Last Admin: 01/19/20 09:01 Dose: Not Given Atorvastatin Calcium (Lipitor) [address] [facility] Last Admin: 01/18/20 20:38 Dose: 40 mg Diltiazem HCl (Cardizem Cd) [address] [facility] Last Admin: 01/19/20 08:59 Dose: 300 mg Famotidine (Pepcid) [address] [facility] Last Admin: 01/19/20 08:59 Dose: 20 mg Famotidine (Pepcid) [address] [facility] Last Admin: 01/19/20 09:01 Dose: Not Given Fish Oil (Fish Oil) 1,[address] [facility] Last Admin: 01/19/20 09:00 Dose: 1,000 mg Furosemide (Lasix) 20 mg SLOW IVP 0600,1400 [facility] Last Admin: 01/19/20 05:34 Dose: 20 mg Furosemide (Lasix) [address] [facility] Last Admin: 01/19/20 09:00 Dose: 20 mg Magnesium Oxide (Magnesium Oxide) [address] [facility] Last Admin: 01/19/20 09:00 Dose: 250 mg Pantoprazole Sodium (Protonix) [address] [facility] Last Admin: 01/19/20 09:00 Dose: 40 mg Paroxetine HCl (Paxil) [address] [facility] Last Admin: 01/19/20 09:00 Dose: 20 mg Potassium Chloride (Klor-Con 10) 10 meq PO Q2D@0800 [facility] Vital Signs & Weight: Vital Signs Temp Pulse Pulse Pulse Resp BP BP 01/19/20 09:26 96 94 134/100 H 149/102 H 01/19/20 07:27 97.9 F 92 18 01/19/20 04:00 98.5 F 85 18 BP BP Pulse Ox Pulse Ox 01/19/20 09:26 96 01/19/20 07:27 151/100 H 94 L 01/19/20 04:00 168/92 H 93 L Weight 267 lb I/O: I/O 01/18/20 01/19/20 01/20/20 06:59 06:59 06:59 Intake Total 240 360 Output Total 500 650 Balance -260 -290 - Quality Measures CV meds: Eliquis: Yes - Physical Exam General: alert & oriented x3, appears well, no apparent distress, speech clear HEENT: EOMI Neck: no JVD/HJR Cardiology: regular rate and rhythm, regular rate Lungs: clear to auscultation, no wheezes Neurology: grossly intact Abdomen: unremarkable, active bowel sounds Extremities: warm Musculoskeletal: no pain - Chadsvasc Risk factors Congestive heart failure: 1 Hypertension: 1 Age 65-74: 1 Risk Score: 3 - Labs Result Diagrams: 01/19/20 04:10 01/19/20 04:10 - EKG Interpretation EKG Method: Telemetry EKG shows: Sinus rhythm - Assessment/Plan Assessment/Plan: ASSESSMENT AND PLAN: Mr. Angeles is a pleasant 64-year-old man with prior history of chronic diastolic/systolic heart failure, persisting atrial fibrillation despite prior IGNACIO-guided cardioversion. He is now anticoagulated over about a month. He has not been maintaining sinus rhythm despite the cardioversion. He has been started on amiodarone about a week ago and now he is back with fluid overload and diastolic heart failure exacerbation. His BNP is mildly elevated only. His blood pressure was markedly elevated on the . 1. Atrial fibrillation/atypical flutter. a. Amiodarone initiated about a week ago as an outpatient noted. b. IGNACIO-guided cardioversion 12/14/2019 with ERAF. 2. Rwuoi-ch-fpwxyzh systolic/diastolic heart failure. a. 2D echo from 11/2019 revealing EF 45-50%, severe MR, following hypertension and yooj-ph-methstbs tricuspid regurgitation, severe left atrial enlargement. 3. Morbid obesity with BMI 40. 4. History of renal stone and kidney stenting in 2011. 5. CHADS-VASc score of 4 with prior history of stroke, hypertension, age, on oral anticoagulation with Eliquis for about a month. He is maintaining sinus rhythm after Cardioversion yesterday . Would proceed with medical stabilization and continue amiodarone. After medical stabilization with adequate blood pressure control and optimization of his diastolic heart failure plan to proceed with ablation. Arranged as outpt for Wednesday. For now, continue oral anticoagulation as well.
--- NOTE | 2020-01-19 16:45 | EKG ---
Test Reason : POST CARDIOVERSIOB Blood Pressure : / mmHG Vent. Rate : 084 BPM Atrial Rate : 084 BPM P-R Int : 262 ms QRS Dur : 100 ms QT Int : 382 ms P-R-T Axes : 048 058 055 degrees QTc Int : 451 ms Sinus rhythm with 1st degree A-V block Otherwise normal ECG When compared with ECG of 17-JAN-2020 12:16, (Unconfirmed) Sinus rhythm has replaced Atrial fibrillation Confirmed by DR. Michelle MCGOWAN ([id number]) on 01/19/2020 4:44:54 PM Referred By: RICH Confirmed By:DR. Michelle MCGOWAN
[2020-01-19 18:15] VITALS: BP 158/94; TEMP 98.6
--- NOTE | 2020-01-19 20:55 | DIS ---
DATE OF ADMISSION: 01/17/2020 DATE OF DISCHARGE: 01/19/2020 DISCHARGE DISPOSITION/FOLLOWUP: Patient discharged home. The patient was seen and examined on the day of discharge. Denies any new complaints. INPATIENT CONSULTS: Cardiology and EP. CLINICAL COURSE: The patient is a 64-year-old male with a known past medical history of heart failure and atrial fibrillation. He presented for a dry cough and shortness of breath for the past week with some chest discomfort. He was also approximately up 11 pounds from his dry weight. EP and Cardiology saw the patient in-house and performed a cardioversion on 01/18/2020, which was successful. He also had an echo performed which showed his EF at 50% to 55%. On day of discharge, the patient was in sinus rhythm. He is to have an ablation performed on 01/22/2020, as an outpatient. FINAL DIAGNOSES: Atrial fibrillation, hypertension, congestive heart failure. DISCHARGE MEDICATIONS: Diltiazem 240 mg p.o. daily; zyloprim 300 mg p.o. daily; amiodarone 200 mg p.o. b.i.d., to be tapered down by Dr. Montes at followup appointment; Eliquis 5 mg p.o. b.i.d.; aspirin 81 mg; Lipitor 40 mg; famotidine 20 mg; furosemide 20 mg; magnesium 250 mg; omega-3 fatty acids and fish oil one tab t.i.d.; omeprazole 20 mg daily; paroxetine 20 mg daily; potassium chloride 10 mEq; to hold lisinopril at this time until followup with primary care physician. DISCHARGE INSTRUCTIONS: The patient is to continue anticoagulation until his ablation on Wednesday. Follow up appointments with Dr. Montes in January and with cardiac rehab. Also, followup appointment with his primary care provider this upcoming week to discuss blood pressure. TIME SPENT: Total time coordinating discharging this patient was 25 minutes. The patient was discussed with Dr. Bowen. Job ID: [id number] [facility]
[2020-01-20] MEDS ORDERED: Potassium Chloride 10 MEQ TAB PO SCH (08:00)
--- NOTE | 2020-01-24 15:37 | EKG ---
Test Reason : Blood Pressure : / mmHG Vent. Rate : 088 BPM Atrial Rate : 357 BPM P-R Int : 000 ms QRS Dur : 098 ms QT Int : 370 ms P-R-T Axes : 000 050 042 degrees QTc Int : 447 ms Atrial fibrillation Abnormal ECG Confirmed by JUAN COELHO DO ([id number]), video tape editor EBONIE KAUR ([id number]) on 01/24/2020 3:36:40 PM Referred By: Confirmed By:JUAN COELHO DO
== END 2020-01-19 19:50 | disposition home or self-care (01) | DRG 291 ==
LOC: ERS 12:02 → ERHOLD 14:26 → OBSVTOIN 14:26 → 2NO 18:28
PROVIDERS: ADMIT Internal Medicine; ATTEND Internal Medicine
PROC: 5A2204Z Restoration of Cardiac Rhythm, Single (ICD-10-PCS; principal; 2020-01-18)
DX: I13.0 Hypertensive heart and chronic kidney disease with heart failure and stage 1 through stage 4 chronic kidney disease, or unspecified chronic kidney disease (principal); I50.43 Acute on chronic combined systolic (congestive) and diastolic (congestive) heart failure; Z68.41 Body mass index [BMI] 40.0-44.9, adult; I48.19 Other persistent atrial fibrillation; N17.9 Acute kidney failure, unspecified; I48.4 Atypical atrial flutter; Z20.828 Contact with and (suspected) exposure to other viral communicable diseases; E78.5 Hyperlipidemia, unspecified; E78.00 Pure hypercholesterolemia, unspecified; F32.9 Major depressive disorder, single episode, unspecified; M10.9 Gout, unspecified; I34.0 Nonrheumatic mitral (valve) insufficiency; E66.01 Morbid (severe) obesity due to excess calories; N18.9 Chronic kidney disease, unspecified; K21.9 Gastro-esophageal reflux disease without esophagitis; R09.02 Hypoxemia; J45.909 Unspecified asthma, uncomplicated; Z79.899 Other long term (current) drug therapy; Z79.82 Long term (current) use of aspirin; Z86.73 Personal history of transient ischemic attack (TIA), and cerebral infarction without residual deficits; Z87.442 Personal history of urinary calculi
CPT/HCPCS: 36415; 71045; 80048; 80053; 83605; 83690; 83880; 84484; 85025; 87635; 92960; 93005; 93010; 93306; 93798; 94760; 96374; G0378; J1940; J2704; U0003

== ENCOUNTER 2020-01-27 09:12 | Inpatient (IN) | payer MEDICARE ==
[2020-01-27 09:44] LABS: #Eosinphils 0.3 thou/uL (0.0-0.7); #Lymphocytes 1.6 thou/uL (1.20-3.40); #Monocytes 0.9 thou/uL (0.11-0.59); #Neutrophils 7.2 thou/uL (1.40-6.50); %Basophils 0.3 % (0.0-1.0); %Eosinophils 2.9 % (0.0-10.0); %Lymphocytes 15.5 % (21.0-51.0); %Neutrophils 72.4 % (42.0-75.0); Hemoglobin 11.1 g/dL (14.0-18.0); Mean Corpuscular HGB CONC 32.4 g/dL (32.0-36.0); Mean Corpuscular Hemoglobin 30.7 pg (27.0-31.0); Mean Corpuscular Volume 94.9 fL (78.0-98.0); Mean Platelet Volume 7.6 fL (7.4-10.4); Platelet Count 323 thou/uL (130-400); RBC Distribution Width 13.5 % (11.5-14.5); Red Blood Cell (RBC) Count 3.61 mill/uL (4.70-6.10)
--- NOTE | 2020-01-27 09:57 | RAD ---
Exam: Chest one view HISTORY:Shortness of breath. Congestive heart failure. Atrial fibrillation. Patient had ablation on M onday. Comparison: 01/17/2020 FINDINGS: Cardiac silhouette:Cardiomegaly. Aorta: Atherosclerosis Pulmonary vessels: Slightly prominent. Costophrenic angles: Small bilateral effusions are suspected. LUNGS: Patchy alveolar opacities. Pneumothorax: None Osseous abnormalities: None IMPRESSION: Congestive heart failure.
[2020-01-27] MEDS ORDERED: Aspirin Chewable 81 MG TAB ONE (09:58)
[2020-01-27] MEDS ORDERED: Furosemide 40 MG/4 ML VIAL ONE (09:58)
[2020-01-27 10:11] LABS: ALT (SGPT) 27 U/L (8-55); AST (SGOT) 34 U/L (5-34); Albumin 3.6 g/dL (3.4-4.8); Alkaline Phosphatase 105 U/L (40-110); Anion Gap 16 mmol/L (10-20); BUN (Urea Nitrogen) 22 mg/dL (8.4-25.7); Bilirubin, Total 0.9 mg/dL (0.2-1.2); Calc. Creatinine Clearance 0 mL/min (70-130); Calcium 8.8 mg/dL (7.8-10.44); Carbon Dioxide 20 mmol/L (23-31); Chloride 107 mmol/L (98-107); Estimated GFR-MDRD 53; Globulin 3.6 g/dL (2.4-3.5); Glucose 127 mg/dL (80-115); Potassium 4.5 mmol/L (3.5-5.1); Protein, Total 7.2 g/dL (5.8-8.1); Sodium 138 mmol/L (136-145)
[2020-01-27 10:39] LABS: CKMB 2.1 ng/mL (0-6.6)
[2020-01-27] MEDS ORDERED: Senokot S 8.6-50 MG TAB PO PRN (11:13)
[2020-01-27 12:46] LABS: Phosphorus 4.3 mg/dL (2.3-4.7)
[2020-01-27 12:56] LABS: Critical Call Chem Troponin I RESULT DECREASING
[2020-01-27 14:16] VITALS: BMI 42.4
[2020-01-27] MEDS: Sucralfate 1 GM TAB PO SCH ×3 (15:10→21:16)
[2020-01-27 16:02] LABS: Critical Call Chem Troponin I RESULT DECREASING
--- NOTE | 2020-01-27 17:49 | CON ---
DATE OF CONSULTATION: 01/27/2020 REASON FOR CONSULTATION: Heart failure. HISTORY OF PRESENT ILLNESS: Mr. Angeles is a pleasant 64-year-old white gentleman, who comes to the hospital for shortness of breath, where he is a patient of Dr. Montes, who was recently admitted for atrial fibrillation in [facility] about 3 weeks ago and actually underwent atrial fibrillation ablation by Dr. Bhatti just 5 days ago on Wednesday of this week. He had a successful ablation, had isolation of posterior wall as well as ablation of atrial flutter. He was sent home on Eliquis and amiodarone. He has taken all his medications. He also takes 20 mg of Lasix a day. He started noticing shortness of breath in the last couple of days to the point where he just could not breathe. So, he decided to come in. He was found to be in CHF with pulmonary edema, so he was admitted, placed on supplemental oxygen, given IV Lasix. By the time of my evaluation, he is already feeling better. He denies any chest pain, tightness, or pressure. His shortness of breath, significantly improved after just IV Lasix. PAST MEDICAL HISTORY: 1. Hypertension. 2. Obesity. 3. Gout. 4. GERD. 5. Anxiety and depression. 6. Chronic kidney disease. 7. Mitral regurgitation. 8. Previous CVA. 9. Paroxysmal atrial fibrillation. 10. Diastolic heart failure. PAST SURGICAL HISTORY: Atrial fibrillation ablation recently. SOCIAL HISTORY: No tobacco or drugs. Social alcohol use. FAMILY HISTORY: Noncontributory. OUTPATIENT MEDICATIONS: 1. Famotidine. 2. Howard-3 fish oil. 3. Calcium and vitamin D. 4. Sucralfate. 5. Diltiazem 240 mg a day. 6. Metoprolol succinate 25 mg a day. 7. Lisinopril 5 mg a day. 8. Potassium chloride 10 mEq every 2 days. 9. Omeprazole 40 mg a day. 10. Magnesium. 11. Lasix 20 mg a day. 12. Amiodarone 200 mg a day. 13. Eliquis 5 mg b.i.d. 14. Alprazolam p.r.n. 15. Paroxetine 20 mg a day. 16. Lipitor 40 mg at bedtime. 17. Aspirin 81 a day. 18. Allopurinol 300 mg a day. ALLERGIES: NO KNOWN DRUG ALLERGIES. REVIEW OF SYSTEMS: Twelve-point review of systems was done and was found to be negative other than stated in the History of Present Illness. PHYSICAL EXAMINATION: VITAL SIGNS: Temperature 97.6, pulse 70, respiratory rate 18, saturating 97% on room air, and blood pressure 109/60. GENERAL: Awake, alert, oriented x3. No distress. HEENT: Normocephalic, atraumatic. NECK: Supple. LUNGS: Clear. CARDIOVASCULAR: S1 and S2. No S3 or S4. No murmurs. ABDOMEN: Soft. Positive bowel sounds. EXTREMITIES: No edema. SKIN: Warm and dry. LABORATORY DATA: Laboratory work was reviewed. Sodium 138, potassium 4.5, BUN 22, creatinine 1.35, and GFR 53. Troponin was 0.44 and then 0.43 and then 0.39 with a BNP of 322. Albumin of 3.6. CBC with a white count of 10, hemoglobin 11, hematocrit of 34, and platelet count of 323. IMAGING DATA: Chest x-ray showed findings consistent with CHF. ASSESSMENT: 1. Paroxysmal atrial fibrillation. He was in atrial fibrillation on arrival to the hospital. He is back in normal sinus rhythm now. 2. Status post atrial fibrillation ablation and atrial flutter ablation just a week ago. 3. Acute on chronic diastolic heart failure. 4. Mitral regurgitation. PLAN: 1. Continue IV diuresis with Lasix. We will switch him to 40 IV b.i.d. 2. Continue Eliquis for stroke prophylaxis. 3. We will increase the amiodarone to 400 mg twice a day for the next 5 days and then back down to 200 mg a day. 4. We will repeat echocardiogram to make sure he has not had any worsening of his pre-existing pericardial effusion. I do not think this is the case as he was diuresed and did well. If he were in tamponade, diuresis would have made him a lot worse and would have provoked severe hypertension, which has not been the case. Thank you for letting us to participate in the care of your patient. We will follow. Job ID: [id number]
[2020-01-27] MEDS ORDERED: Amiodarone 200 MG TAB PO SCH (21:00)
[2020-01-27] MEDS ORDERED: Famotidine 20 MG TAB PO SCH (21:00)
[2020-01-27] MEDS: Amiodarone 200 MG TAB PO SCH (21:16)
[2020-01-27] MEDS: Acetaminophen 325 MG TAB PO PRN (21:16)
[2020-01-27] MEDS: Apixaban 5 MG TAB PO SCH (21:16)
[2020-01-28 04:27] LABS: #Eosinphils 0.2 thou/uL (0.0-0.7); #Lymphocytes 1.5 thou/uL (1.20-3.40); #Neutrophils 6.7 thou/uL (1.40-6.50); %Eosinophils 2.2 % (0.0-10.0); %Lymphocytes 16.4 % (21.0-51.0); %Monocytes 10.1 % (0.0-10.0); %Neutrophils 71.3 % (42.0-75.0); Hemoglobin 10.8 g/dL (14.0-18.0); Mean Corpuscular HGB CONC 31.9 g/dL (32.0-36.0); Mean Corpuscular Hemoglobin 30.4 pg (27.0-31.0); Mean Corpuscular Volume 95.2 fL (78.0-98.0); Mean Platelet Volume 7.1 fL (7.4-10.4); Platelet Count 308 thou/uL (130-400); RBC Distribution Width 13.4 % (11.5-14.5); Red Blood Cell (RBC) Count 3.55 mill/uL (4.70-6.10); White Blood Cell (WBC) Count 9.4 thou/uL (4.8-10.8)
[2020-01-28 04:50] LABS: ALT (SGPT) 21 U/L (8-55); AST (SGOT) 17 U/L (5-34); Albumin 3.6 g/dL (3.4-4.8); Alkaline Phosphatase 102 U/L (40-110); Anion Gap 14 mmol/L (10-20); BUN (Urea Nitrogen) 19 mg/dL (8.4-25.7); Calc. Creatinine Clearance 93 mL/min (70-130); Calcium 8.7 mg/dL (7.8-10.44); Carbon Dioxide 25 mmol/L (23-31); Chloride 105 mmol/L (98-107); Estimated GFR-MDRD 52; Glucose 118 mg/dL (80-115); Potassium 4.2 mmol/L (3.5-5.1); Protein, Total 6.6 g/dL (5.8-8.1); Sodium 140 mmol/L (136-145)
[2020-01-28] MEDS: Furosemide 40 MG/4 ML VIAL SLOW IVP SCH ×2 (05:31→16:07)
--- NOTE | 2020-01-28 07:44 | HP ---
PRIMARY CARE PHYSICIAN: PCP Damaris Chapman CHIEF COMPLAINT: Shortness of breath. HISTORY OF PRESENT ILLNESS: Mr. Angeles is a very pleasant 64-year-old man, who reported to the emergency room today after he had increasing shortness of breath last night and through today. He reports that it is worse when he lays flat, gets a little better when he sits up straight. He was seen on Wednesday and underwent an ablation for some AFib. On Wednesday, he underwent the ablation and pulmonary venous isolation procedure. He had extensive left atrial ablation isolating all 4 pulmonary veins. Posterior wall was also isolated in the inferior wall and over the CS roof was also ablated and isolated. Septum was also ablated due to a small extrastimuli from this area. He remained in hospital overnight and then was discharged. Dr. Bhatti requested that he will be kept on his home medications. He would see him in 6 weeks. He was discharged on his current medication including amiodarone 200 mg twice a day for a week and then 200 mg daily after that, to continue his Lasix and potassium with diastolic heart failure. He wanted him to continue the diltiazem for blood pressure, Carafate 1 g q.6, and Prilosec for 2 weeks. Today in the ER, he denied any chest pain, was primarily concerned with shortness of breath. He was found to have a BNP of 322.7, but his troponin was positive at 0.444. Creatinine was elevated at 0.135, but this is actually a better value than he had earlier in the week. He was given Lasix, placed on oxygen while in the emergency room and states that he feels better after both of those interventions. Dr. Roberson has already contacted Dr. Perrin, who agreed to see him today. He will be admitted to the telemetry unit for further management. REVIEW OF SYSTEMS: The patient denies fever or chills. Reports some shortness of breath, orthopnea, dyspnea on exertion. Denies any chest pain. Denies any abdominal pain, nausea, vomiting, or diarrhea. All systems are reviewed and negative unless mentioned above or in HPI. PAST MEDICAL HISTORY: Pertinent for GERD, gout, hyperlipidemia, hypertension, congestive heart failure. PAST SURGICAL HISTORY: He has had renal stents placed for kidney stones and then cardiac ablation that was done on 08/21. PSYCHIATRIC HISTORY: Depression. SOCIAL HISTORY: Drinks socially. Denies any drug use. No smoking history. ALLERGIES: NONE. HOME MEDICATIONS: 1. Allopurinol 300 mg p.o. daily. 2. Xanax 0.25 mg q.8 hours p.r.n. 3. Cordarone 200 mg p.o. b.i.d. for one week and then he will go down to 200 mg daily. 4. Aspirin 81 mg p.o. daily. 5. Atorvastatin 400 mg at bedside. 6. Calcium 1 tablet p.o. daily. 7. Pepcid 20 mg p.o. daily. 8. Magnesium 250 mg p.o. daily. 9. Trosper-3 fatty acids 1 tablet p.o. t.i.d. 10. Prilosec 20 mg p.o. daily. 11. Paxil 200 mg p.o. daily. 12. Eliquis 5 mg p.o. b.i.d. 13. Diltiazem 240 mg p.o. daily. 14. Lasix 20 mg p.o. daily. 15. Potassium chloride 10 mEq p.o. q.48 hours. PHYSICAL EXAMINATION: VITAL SIGNS: Blood pressure 116/74, pulse is 64, respiratory rate is 22, temperature is 98.2, O2 saturations are 100% on 2 L. CONSTITUTIONAL: He is alert and oriented to person, place, and time. He is nontoxic appearing. HEENT: Head is atraumatic and normocephalic. Eyes, pupils are equally round and reactive to light. Extraocular muscles are intact. ENT, mouth exam is normal. Mucous membranes are moist. NECK: Normal range of motion. Trachea is midline. RESPIRATORY: Chest expansion is equal. Breath sounds are clear. CARDIOVASCULAR: Regular rate and rhythm. Heart sounds are normal. ABDOMEN: Nontender. Bowel sounds are heard. BACK: Normal range of motion. No tenderness. EXTREMITIES: Upper extremity, normal range of motion. Motor strength is normal. Radial pulses are normal. Lower extremity normal inspection. Normal range of motion. Pedal pulses are normal. There is +2 edema bilaterally. NEUROLOGIC: The patient is oriented to person, place, and time. Speech is normal. SKIN: Warm, dry, normal in color. LABORATORY DATA: White blood cell count is 10, hemoglobin is 11.1, hematocrit is 34.2, and platelet count is 323. Sodium 138, potassium 4.5, chloride 107, carbon dioxide 20, BUN is 22, creatinine is 1.35, estimated GFR 63, glucose is 127. Liver enzymes are unremarkable. Troponin 0.444, CK-MB is 2.1. Globulin 3.6. Chest x-ray suggestive of congestive heart failure. No acute process. PLAN/ASSESSMENT: 1. Congestive heart failure exacerbation. Lasix was given in the ER. We will continue this daily. Troponin positive. We will trend. Dr. Perrin has been consulted and agrees to see the patient. We will continue his cardiac medications. The patient is on Eliquis. We will continue this. Magnesium and phosphorus labs have been ordered. 2. History of a recent ablation for atrial fibrillation. We will continue the Carafate and Protonix and the amiodarone per request of Dr. Bhatti. 3. History of hypertension. We will continue his home medications. 4. Hyperlipidemia. We will restart his home medications. 5. History of gout. We will continue his home medications. 6. Case was discussed with Dr. Roberson who agrees with plan. 7. Hospital course dependent on clinical findings. Job ID: [id number]
[2020-01-28] MEDS: Apixaban 5 MG TAB PO SCH ×2 (08:58→21:45)
[2020-01-28] MEDS: Amiodarone 200 MG TAB PO SCH ×2 (08:58→21:45)
[2020-01-28] MEDS: Sucralfate 1 GM TAB PO SCH ×4 (08:58→21:45)
[2020-01-28] MEDS ORDERED: Furosemide 40 MG/4 ML VIAL SLOW IVP SCH (09:00)
--- NOTE | 2020-01-28 15:04 | PDOC.HOSPP ---
- Subjective Encounter Date: 01/28/20 Subjective: Pt feels a lot better. No longer as SOB. Has diuresed a lot. - Objective Vital Signs & Weight: Vital Signs (12 hours) Temp Pulse Pulse Pulse Resp BP BP 01/28/20 12:26 97.6 F 89 21 H 01/28/20 10:47 97.9 F 96 27 H 01/28/20 10:30 96 87 123/77 131/90 01/28/20 07:50 01/28/20 07:30 98.2 F 81 26 H 01/28/20 04:00 98.3 F 81 23 H BP BP Pulse Ox Pulse Ox Pulse Ox 01/28/20 12:26 111/72 94 L 01/28/20 10:47 123/77 95 01/28/20 10:30 96 93 L 01/28/20 07:50 94 L 01/28/20 07:30 155/93 H 94 L 01/28/20 04:00 149/90 H 93 L Weight Weight 279 lb 11.2 oz I&O: 01/27/20 01/28/20 01/29/20 06:59 06:59 06:59 Intake Total 380 120 Output Total 800 Balance 380 -680 Result Diagrams: 01/28/20 04:09 01/28/20 04:09 Hospitalist ROS - Review of Systems Constitutional: denies: fever, chills, sweats, weakness, malaise, other Eyes: denies: pain, vision change, conjunctivae inflammation, eyelid inflammation, redness, other ENT: denies: ear pain, ear discharge, nose pain, nose discharge, nose congestion , mouth pain, mouth swelling, throat pain, throat swelling, other Respiratory: denies: cough, dry, shortness of breath, hemoptysis, SOB with excertion, pleuritic pain, sputum, wheezing, other Cardiovascular: denies: chest pain, palpitations, orthopnea, paroxysmal noc. dyspnea, edema, light headedness, other Gastrointestinal: denies: nausea, vomiting, abdominal pain, diarrhea, constipation, melena, hematochezia, other Genitourinary: denies: dysuria, frequency, incontinence, hematuria, retention, other Skin: denies: rash, lesions, collins, bruising, other Neurological: denies: weakness, numbness, incoordination, change in speech, confusion, seizures, other - Medication Medications: Active Medications Generic Name Dose Route Start Last Admin Trade Name Freq PRN Reason Stop Dose Admin Acetaminophen 650 mg 01/27/20 11:13 01/27/20 21:16 Tylenol PO 650 mg Q4H PRN Administration Headache/Fever/Mild Pain (1-3) Amiodarone HCl 400 mg 01/27/20 21:00 01/28/20 08:58 Cordarone PO 400 mg BID DENNIS Administration Apixaban 5 mg 01/27/20 21:00 01/28/20 08:58 Eliquis PO 5 mg BID DENNIS Administration Diltiazem HCl 240 mg 01/28/20 09:00 01/28/20 08:57 Cardizem Cd PO 240 mg DAILY DENNIS Administration Furosemide 40 mg 01/28/20 06:00 01/28/20 05:31 Lasix SLOW IVP 40 mg 0600,1400 DENNIS Administration Pantoprazole Sodium 40 mg 01/28/20 09:00 01/28/20 08:58 Protonix PO 40 mg DAILY DENNIS Administration Sodium Chloride 10 ml 01/27/20 21:00 01/28/20 11:52 Flush - Normal Saline IVF 10 ml Q12HR DENNIS Administration Sucralfate 1 gm 01/27/20 11:30 01/28/20 11:52 Carafate PO 1 gm ACHS DENNIS Administration - Exam General Appearance: awake alert Eye: PERRL, anicteric sclera ENT: normocephalic atraumatic, moist mucosa Neck: supple, symmetric, no JVD, no thyromegaly Heart: RRR, no murmur, no gallops, no rubs Respiratory: CTAB, no wheezes, no rales, no ronchi Gastrointestinal: soft, non-tender, non-distended, normal bowel sounds Extremities: no cyanosis, no clubbing, no edema Skin: no lesions, no rashes Neurological: cranial nerve grossly intact, no focal deficits Musculoskeletal: normal tone, normal strength Psychiatric: normal behavior, A&O x 3 Hosp A/P (1) Acute on chronic diastolic heart failure Code(s): I50.33 - ACUTE ON CHRONIC DIASTOLIC (CONGESTIVE) HEART FAILURE Status : Acute Plan: Improving, cont Lasix. (2) ONEIL (dyspnea on exertion) Code(s): R06.00 - DYSPNEA, UNSPECIFIED Status: Acute Plan: Improving. Pt feels clincally better. (3) HTN (hypertension) Code(s): I10 - ESSENTIAL (PRIMARY) HYPERTENSION Status: Chronic Qualifiers: Hypertension type: essential hypertension Qualified Code(s): I10 - Essential (primary) hypertension Plan: Controlled, cont current meds. Monitor BP. (4) Hypercholesteremia Code(s): E78.00 - PURE HYPERCHOLESTEROLEMIA, UNSPECIFIED Status: Chronic Plan: stable, cont statins. (5) Obese Code(s): E66.9 - OBESITY, UNSPECIFIED Status: Chronic Qualifiers: Obesity type: unspecified obesity type Plan: Will hiv counselor on diet and exercise before DC (6) Atrial fibrillation Code(s): I48.91 - UNSPECIFIED ATRIAL FIBRILLATION Status: Chronic Qualifiers: Atrial fibrillation type: paroxysmal Qualified Code(s): I48.0 - Paroxysmal atrial fibrillation Plan: Now rate controlled. Being followed by cardiology. Currently on Amiodarone. Will f/u with further cardiac recs. - Plan PPx: Moi. CODE: FULL. Dispo: Cont current mgt. Dc in next 1-2 days.
[2020-01-28 16:02] LABS: #Eosinphils 0.3 thou/uL (0.0-0.7); #Lymphocytes 1.9 thou/uL (1.20-3.40); #Monocytes 1.1 thou/uL (0.11-0.59); #Neutrophils 5.6 thou/uL (1.40-6.50); %Basophils 0.2 % (0.0-1.0); %Lymphocytes 21.1 % (21.0-51.0); %Monocytes 12.5 % (0.0-10.0); %Neutrophils 63.2 % (42.0-75.0); Hemoglobin 11.2 g/dL (14.0-18.0); Mean Corpuscular Hemoglobin 30.3 pg (27.0-31.0); Mean Corpuscular Volume 94.8 fL (78.0-98.0); Mean Platelet Volume 7.2 fL (7.4-10.4); Platelet Count 339 thou/uL (130-400); RBC Distribution Width 13.5 % (11.5-14.5); White Blood Cell (WBC) Count 8.8 thou/uL (4.8-10.8)
--- NOTE | 2020-01-28 17:20 | PDOC.CPN ---
- Subjective Date: 01/28/20 Time: 17:18 Interval history: He feels much better with diuresis. No Angina. He went into what looks like aflutter with 2-1 versus SVT and then progressed to now Afib with HR in the 70' s to 90's. - Review of Systems General: denies: fever/chills, weight/appetite/sleep changes, night sweats, fatigue Respiratory: denies: cough, congestion, shortness of breath, exercise intolerance Cardiovascular: denies: chest pain, palpitation, edema, paroxysmal nocturnal dyspnea, orthopnea Gastrointestinal: denies: nausea, vomiting, diarrhea, constipation, abd pain, GI bleeding Musculoskeletal: denies: pain, tenderness, stiffness, swelling, arthritis/ arthralgias Neurological: denies: numbness, syncope, seizure, weakness - Objective Allergies/Adverse Reactions: Allergies Allergy/AdvReac Type Severity Reaction Status Date / Time No Known Drug Allergies Allergy Verified 01/22/20 16:32 Visit Medications: Current Medications Acetaminophen (Tylenol) 650 mg PO Q4H PRN PRN Reason: Headache/Fever/Mild Pain (1-3) Last Admin: 01/27/20 21:16 Dose: 650 mg Amiodarone HCl (Cordarone) 400 mg PO BID [facility] Last Admin: 01/28/20 08:58 Dose: 400 mg Apixaban (Eliquis) 5 mg PO BID [facility] Last Admin: 01/28/20 08:58 Dose: 5 mg Diltiazem HCl (Cardizem Cd) 240 mg PO DAILY [facility] Last Admin: 01/28/20 08:57 Dose: 240 mg Furosemide (Lasix) 40 mg SLOW IVP 0600,1400 [facility] Last Admin: 01/28/20 16:07 Dose: Not Given Pantoprazole Sodium (Protonix) 40 mg PO DAILY [facility] Last Admin: 01/28/20 08:58 Dose: 40 mg Senna/Docusate Sodium (Senokot S) 2 tab PO BIDPRN PRN PRN Reason: Constipation Sodium Chloride (Flush - Normal Saline) 10 ml IVF Q12HR [facility] Last Admin: 01/28/20 11:52 Dose: 10 ml Sodium Chloride (Flush - Normal Saline) 10 ml IVF PRN PRN PRN Reason: Saline Flush Sucralfate (Carafate) 1 gm PO ACHS [facility] Last Admin: 01/28/20 17:10 Dose: 1 gm Vital Signs & Weight: Vital Signs Temp Pulse Pulse Pulse Resp BP BP 01/28/20 16:21 97.5 F L 99 22 H 01/28/20 14:37 01/28/20 14:36 01/28/20 12:26 97.6 F 89 21 H 01/28/20 10:47 97.9 F 96 27 H 01/28/20 10:30 96 87 123/77 131/90 01/28/20 07:50 01/28/20 07:30 98.2 F 81 26 H BP BP Pulse Ox Pulse Ox Pulse Ox 01/28/20 16:21 115/75 95 01/28/20 14:37 91/64 01/28/20 14:36 96/63 01/28/20 12:26 111/72 94 L 01/28/20 10:47 123/77 95 01/28/20 10:30 96 93 L 01/28/20 07:50 94 L 01/28/20 07:30 155/93 H 94 L Weight 279 lb 11.2 oz - Physical Exam General: alert & oriented x3 HEENT: mucus membranes moist Neck: supple neck Cardiac: irregularly regular Lungs: clear to auscultation Neuro: grossly intact Abdomen: active bowel sounds Extremities: 1+ LE edema Skin: clear Musculoskeletal: no pain - Labs Result Diagrams: 01/28/20 15:40 01/28/20 04:09 Troponin/CKMB CK-MB (CK-2) 2.1 ng/mL (0-6.6) 01/27/20 09:26 Troponin I 0.390 ng/mL (< 0.028) H* 01/27/20 15:23 - Telemetry Supraventricular conduction: atrial fibrillation - Assessment/Plan Assessment/Plan: 1. Paroxysmal atrial fibrillation. 2. Status post atrial fibrillation ablation and atrial flutter ablation just a week ago. 3. Acute on chronic diastolic heart failure. Improved. 4. Mitral regurgitation. PLAN: - Continue IV diuresis with Lasix. - Continue Eliquis for stroke prophylaxis. - Continue increased amiodarone at 400 mg twice a day. - Will consult EP as he is back in afib.
[2020-01-28] MEDS: Acetaminophen 325 MG TAB PO PRN (21:45)
[2020-01-29] MEDS: Furosemide 40 MG/4 ML VIAL SLOW IVP SCH ×2 (05:04→14:25)
[2020-01-29 05:29] LABS: Anion Gap 11 mmol/L (10-20); BUN (Urea Nitrogen) 20 mg/dL (8.4-25.7); Calc. Creatinine Clearance 114 mL/min (70-130); Calcium 8.8 mg/dL (7.8-10.44); Carbon Dioxide 30 mmol/L (23-31); Chloride 103 mmol/L (98-107); Estimated GFR-MDRD 63; Glucose 111 mg/dL (80-115); Potassium 3.6 mmol/L (3.5-5.1); Sodium 140 mmol/L (136-145)
[2020-01-29] MEDS: Sucralfate 1 GM TAB PO SCH ×3 (08:42→16:15)
[2020-01-29] MEDS: Apixaban 5 MG TAB PO SCH (08:42)
[2020-01-29] MEDS: Amiodarone 200 MG TAB PO SCH (08:42)
[2020-01-29] MEDS ORDERED: Amiodarone 150 MG, Admixture Fee 1 EACH in Dextrose 5% in Water 100 ML IVPB SCH (08:45)
--- NOTE | 2020-01-29 09:34 | PRG ---
DATE OF SERVICE: 01/29/2020 SUBJECTIVE: Mr. Angeles returns with congestive heart failure. He states he started feeling not so well on Wednesday. He returned to the emergency room. This is his third hospitalization in the last month. He was back in atrial fibrillation. He is scheduled for cardioversion by Dr. Bhatti. His last echo dated 01/18/2020, with LVEF 50% to 55% with mild concentric LVH. OBJECTIVE: VITAL SIGNS: Respirations 20, heart rate 118, blood pressure 130/77. LUNGS: Clear to auscultation. HEART: Irregularly irregular. ABDOMEN: Soft, nontender, and nondistended. EXTREMITIES: No edema. IMPRESSION: 1. Recurrent atrial fibrillation. 2. Diastolic dysfunction. RECOMMENDATIONS: The patient is scheduled for a cardioversion this afternoon. Continue current medications including Lasix. He did receive an AFib ablation recently and has reverted back to atrial fibrillation. The patient also likely has obstructive sleep apnea and is awaiting testing. If the patient continues to have rehospitalization for the above, may consider AV alisa ablation or repeat AFib ablation. Job ID: [id number]
[2020-01-29 11:42] VITALS: TEMP 97.7
--- NOTE | 2020-01-29 13:39 | PQF ---
CLINICAL DOCUMENTATION CLARIFICATION FORM: Dear Dr. Peralta Date: 01/29/20 Please exercise your independent, professional judgment in responding to the clarification form. Clinical indicators are provided on the bottom of this form for your review. Please check appropriate box(es): [ x] Acute Respiratory Failure: [ x ] with Hypoxia [ ] with Hypercapnia [ ] Acute On Chronic Respiratory Failure: [ ] with Hypoxia [ ] with Hypercapnia [ ] Acute Respiratory Failure due to: (etiology) [ ] ARDS (Acute Respiratory Distress Syndrome) [ ] Chronic Respiratory Failure only [ ] with Hypoxia [ ] with Hypercapnia [ ] Respiratory Insufficiency [ ] Hypoxia [ ] Other diagnosis [ ] Unable to determine In addition, please specify: Present on Admission (POA): [ x ] Yes [ ] No [ ] Unable to determine For continuity of documentation, please document condition throughout progress notes and discharge summary. Thank You. 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 REQUIRING 2 LITERS OF OXYGEN" RR 27 [employer] 01/26: "SLIGHTLY LABORED RESPIRATORY EFFORT WITH INSPIRATORY AND EXPIRATORY FINE CRACKLES." RISKS: ACUTE DIASTOLIC HEART FAILURE EXACERBATION (H&P- O'COLEEN) H/O MITRAL REGURG (PN 01/27- ARIADNA) AFIB (PN 01/27-ARIADNA) OBESITY (PN 01/27-OLEJEME) LIKELY HAS SLEEP APNEA (PN -VILLANUEVA) TREATMENT: SUPPLEMENTAL OXYGEN (ER) IV LASIX (ER-PRESENT) Acute Respiratory Failure: ABG pH < 7.35 or > 7.45; Decreased oxygen saturation (<90% room air or < 95% on oxygen); PCO2 > 50 mm Hg; PO2 < 60 mm Hg; Labored or rapid respirations ARDS: Dx Criteria [[place] ARDS]: Respiratory symptoms within one week of a known clinical insult (e.g. shock, infection, surgery, trauma) Bilateral opacities in CXR/Chest CT not due to CHF or fluid CDS Signature: Kylie Urena RN Phone #: [phone] Date: 01/29/20 This is a permanent part of the Medical Record [facility]
--- NOTE | 2020-01-29 14:01 | PQF ---
CLINICAL DOCUMENTATION CLARIFICATION FORM: Dear Dr. Peralta Date / Time: 01/29/20 Please exercise your independent, professional judgment in responding to the clarification form. Clinical indicators are provided on the bottom of this form for your review. Please check appropriate box(es): [ ] Associated Diagnosis: [ ] Other diagnosis [x ] Unable to determine In addition, please specify: Present on Admission (POA): [ ] Yes [ ] No [ ] Unable to determine For continuity of documentation, please document condition throughout progress notes and discharge summary. Thank You. "TROPONIN POSITIVE" (H&P- O'CLOEEN) TROPONINS (01/26): 0.444 / 0.430 / 0.390 RISKS: CHF EXACERBATION (H&P- O'COLEEN) H/O AFIB WITH ABLATION 5 DAYS PRIOR TO ADMIT / AFIB ON ARRIVAL TO ER (CONSULT REPORT 01/26- ARIADNA) MITRAL REGURG (CONSULT REPORT- ARIADNA 01/27) TREATMENT: TELEMETRY MONITORING CARDIOLOGY CONSULT SERIAL LABS ASPIRIN (ER) AMIODARONE (01/26-PRESENT) CARDIZEM (12/31-PRESENT) CDS Signature: Kylie Urena RN Phone #: [phone] Date: 01/29/20 This is a permanent part of the Medical Record [facility]
--- NOTE | 2020-01-29 14:09 | CON ---
DATE OF CONSULTATION: 01/29/2020 REASON FOR CONSULTATION: Atrial fibrillation. The consulted physician is Dr. Ernesto Bhatti, who performed consultation. HISTORY OF PRESENT ILLNESS: Mr. Angeles is a 64-year-old gentleman who presented to the emergency room 2 days ago with increasing shortness of breath and orthopnea. He was found to be in diastolic heart failure and atrial flutter. He eventually went into atrial fibrillation. Cardiology has been consulted and is working on optimizing his heart failure status. Mr. Angeles recently underwent atrial ablation on 01/22/2020 for atrial fibrillation and also cavotricuspid isthmus ablation, total of 55 minutes. He was kept on amiodarone post ablation and maintained sinus rhythm. He was instructed to double his Lasix if he began to experience any shortness of breath or swelling post ablation. Despite continued single PO Lasix regimen, he again developed fluid overload which prompted him to come to the hospital . EP consultation has been requested for management of his atrial fibrillation. REVIEW OF SYSTEMS: Positive for shortness of breath, orthopnea, heart racing, palpitations. Positive for swelling of his extremities. Otherwise, a 12-point review of systems is unremarkable except that listed above in HPI. PAST MEDICAL HISTORY: 1. Atrial fibrillation status post PVAI on 01/22/2020, 55 minutes. 2. Typical atrial flutter status post CTI flutter ablation on 01/22/2020. 3. Hwpuh-yl-[id number] systolic and diastolic heart failure, LVEF of 40% to 45% with severe MR and severe left atrial enlargement. 4. Morbid obesity, BMI of 40. 5. History of renal stone and kidney stent in 2011. 6. CHADS-VASc score of 4 on the basis of prior stroke, hypertension, and age, on Eliquis. ALLERGIES: NONE. HOME MEDICATIONS: Include: 1. Famotidine 20 mg daily. 2. [place] fish oil daily. 3. Calcium daily. 4. Carafate q.i.d. 1 g x2 weeks post ablation. 5. Diltiazem 240 mg daily. 6. Metoprolol succinate 25 mg nightly. 7. Lisinopril 5 mg daily. 8. Potassium 10 mEq every other day. 9. Omeprazole 40 mg daily. 10. Magnesium 250 mg daily. 11. Lasix 20 mg daily. 12. Amiodarone 200 mg daily. 13. Eliquis 5 mg b.i.d. 14. Xanax p.r.n. 15. Paroxetine 20 mg daily. 16. Atorvastatin 40 mg nightly. 17. Aspirin 81 mg daily. 18. Zyloprim 30 mg p.o. daily. FAMILY HISTORY: Negative for sudden cardiac or early-onset CAD. SOCIAL HISTORY: Drinks socially. Denies drug use or tobacco use. OBJECTIVE: VITAL SIGNS: Temperature 97.7, pulse 106, blood pressure 110/77, respirations 18, and oxygen 96% on 2 L via nasal cannula. GENERAL: The patient is alert and oriented. Speech is clear. Affect is appropriate. He is in no apparent distress. HEENT: Normocephalic and atraumatic. Sclerae intact. EOMs are intact. Oral mucosa is moist and pink with adequate dentition. NECK: Normal range of motion. Supple. Jugular venous distention is negative. Trachea is midline. LUNGS: Respirations are even and unlabored. Breath sounds are clear, slightly diminished in the bases. HEART: Rate is irregularly irregular. PMI nondisplaced. ABDOMEN: Obese, soft, and nontender. Bowel sounds are distant. No palpable masses. EXTREMITIES: Warm and dry to touch. Well perfused. Without clubbing or cyanosis. 1+ edema is noted bilaterally. NEUROLOGIC: Grossly intact and nonfocal. Gait was not assessed. LABORATORY DATA: Hematology is unremarkable. Chemistry: Potassium 3.6, creatinine 1.16. Magnesium 2. BNP 322 on admission. IMPRESSION: 1. Atrial arrhythmias, early recurrence status post ablation one week ago. 2. Lprwh-az-nwjzvjg mixed heart failure. 3. Anticoagulation on Eliquis 5 mg b.i.d. postablation for CHADS-VASc score of 4. 4. Severe mitral regurgitation. 5. Severe left atrial dilation. 6. Morbid obesity. PLAN AND RECOMMENDATIONS: Mr. Angeles has had early recurrence of atrial arrhythmias following recent extensive ablation. This is not on common to see during the postablation inflammatory phase. He is appropriately anticoagulated on Eliquis. I have increased his amiodarone and will allow him in a few days on a higher dose while he is being diuresed before attempting cardioversion. He has a history of severe MR and also severe left atrial enlargement, that in conjunction with his morbid obesity, all work against him at maintaining sinus rhythm. At this point , having him monitored for signs of heart failure exacerbation at home or paramount to him maintaining sinus rhythm and also staying on amiodarone, this is close following his ablation. I have discussed this with him at length and stressed the importance of using medications as instructed and prescribed. We will continue to follow up anticipate cardioversion prior to discharge, likely could be arranged in 1-2 days, Thank you for allowing us to participate in the care of this patient. Job ID: [id number] BRIAN
[2020-01-29] MEDS ORDERED: PROPOFOL 0 ML ONE (15:36)
[2020-01-29 17:10] VITALS: BP 149/90
--- NOTE | 2020-01-29 18:42 | DIS ---
DATE OF ADMISSION: 01/27/2020 DATE OF DISCHARGE: 01/29/2020 DISCHARGE DISPOSITION: Home. FOLLOWUP: 1. Follow up with primary care physician in 1 week. 2. Follow up with Cardiology and Electrophysiology as scheduled. ALLERGIES: NO KNOWN DRUG ALLERGIES. DISCHARGE MEDICATIONS: Amiodarone 200 mg 3 times daily for 1 week, then 200 mg b.i.d. for 2 weeks, then 200 mg daily. All other home medications were left unchanged. The patient was evaluated on the day of discharge, denies any new complaints. No chest pain, shortness of breath, or palpitations reported. The patient underwent cardioversion today. BRIEF HOSPITAL COURSE: The patient is a 64-year-old male who presented to the emergency room on 27 January 2020 with shortness of breath. Please refer to the history and physical for further details. The patient was admitted to the hospital with a diagnosis of acute on chronic diastolic heart failure exacerbation. He was started on IV diuretics. His weight dropped to 269 pounds from 279 pounds. He was extensively counseled to be compliant with fluid restriction. The patient was in atrial fibrillation on arrival to the hospital. However, he converted to sinus rhythm. However, during this hospital stay, he converted back to atrial fibrillation. He underwent cardioversion today. He was evaluated by Electrophysiology as well. He will continue amiodarone loading post discharge. He has been cleared by consultants for discharge. Echocardiogram 10 days ago showed ejection fraction 50% to 55% with mild concentric left ventricular hypertrophy, [id number]-gd-qyoebvun mitral regurgitation, ybfy-xr-kpvrevny tricuspid regurgitation. All other home medications were left unchanged. He was extensively counseled on congestive heart failure. FINAL DIAGNOSES: 1. Acute hypoxic respiratory failure. The patient's O2 saturation in the emergency room was 90% on room air, which improved with O2 supplementation. 2. Acute on chronic diastolic heart failure exacerbation. 3. Paroxysmal atrial fibrillation, requiring cardioversion this hospitalization. 4. History of recent ablation for atrial flutter. 5. Morbid obesity with a BMI of 42. 6. Suspected sleep apnea. 7. Elevated troponin of 0.44, probably secondary to recent ablation. 8. Chronic kidney disease stage 2. 9. Chronic anemia, suspected due to nutritional deficiency. 10. Hypertension. 11. Hyperlipidemia. 12. Gout. 13. Gastroesophageal reflux disease. 14. Anxiety. The patient understands the above plan of care. Job ID: [id number]
--- NOTE | 2020-01-30 00:04 | OP ---
DATE OF PROCEDURE: 01/29/2020 This is a cardioversion report. REASON FOR PROCEDURE: Mr. Angeles is a 64-year-old man with history of diastolic heart failure, persisting atrial fibrillation, status post pulmonary venous isolation procedure a week ago. He was admitted with heart failure exacerbation, sinus rhythm, but during telemetry monitoring, he developed atrial flutter and fibrillation, he is here for a cardioversion with continued oral anticoagulation regimen. DESCRIPTION OF PROCEDURE: The patient received propofol by Anesthesia specialist. After adequate level of sedation achieved, a synchronized 150-joule shock promptly converted the patient back to sinus rhythm. CONCLUSION: Successful cardioversion. PLAN: Continue amiodarone for now with tapering dosages and continue oral anticoagulation. with IV diuretics. Job ID: [id number]
== END 2020-01-29 19:13 | disposition home or self-care (01) | DRG 291 ==
LOC: ERS 09:12 → 2NO 13:46
PROVIDERS: ADMIT Emergency Medicine; ATTEND Emergency Medicine
PROC: 5A2204Z Restoration of Cardiac Rhythm, Single (ICD-10-PCS; principal; 2020-01-29)
DX: I13.0 Hypertensive heart and chronic kidney disease with heart failure and stage 1 through stage 4 chronic kidney disease, or unspecified chronic kidney disease (principal); J96.01 Acute respiratory failure with hypoxia; I50.33 Acute on chronic diastolic (congestive) heart failure; I48.19 Other persistent atrial fibrillation; I48.92 Unspecified atrial flutter; Z68.41 Body mass index [BMI] 40.0-44.9, adult; K21.9 Gastro-esophageal reflux disease without esophagitis; M10.9 Gout, unspecified; E78.5 Hyperlipidemia, unspecified; F32.9 Major depressive disorder, single episode, unspecified; I48.0 Paroxysmal atrial fibrillation; I34.0 Nonrheumatic mitral (valve) insufficiency; E66.01 Morbid (severe) obesity due to excess calories; N18.2 Chronic kidney disease, stage 2 (mild); D53.9 Nutritional anemia, unspecified; F41.9 Anxiety disorder, unspecified; E78.00 Pure hypercholesterolemia, unspecified; Z79.82 Long term (current) use of aspirin; Z79.01 Long term (current) use of anticoagulants; Z79.899 Other long term (current) drug therapy
CPT/HCPCS: 36415; 71045; 80048; 80053; 82553; 83735; 83880; 84100; 84484; 85025; 90471; 90732; 92960; 93005; 93306; 94760; 96374; G0009; J0282; J1940; J2704; J7070

== ENCOUNTER 2020-02-16 11:14 | Day surgery (SDC) | payer MEDICARE ==
[2020-02-16] MEDS ORDERED: PROPOFOL 200 MG/20 ML VIAL ONE (11:36)
--- NOTE | 2020-02-16 19:45 | OP ---
DATE OF PROCEDURE: 02/16/2020 PROCEDURE PERFORMED: Electrical cardioversion. REASON FOR PROCEDURE: Mr. Angeles is a 64-year-old man with prior history of persisting atrial fibrillation, systolic and diastolic heart failure, on chronic anticoagulation since his most recent ablation about a month ago. He has also been loaded with amiodarone, but had recurrence, now he is here for a planned cardioversion after adequate amiodarone loading. DESCRIPTION OF PROCEDURE: The patient received propofol by Anesthesia specialist. After adequate level of sedation achieved, a synchronized 100-joule shock, converted the patient back to sinus rhythm. CONCLUSION: Successful cardioversion. PLAN: Continue intermittent period of amiodarone therapy and also continue oral anticoagulation. Monitor for recurrent arrhythmias. Follow up in the office in the next 6 to 8 weeks. Job ID: [id number]
--- NOTE | 2020-02-19 15:45 | EKG ---
Test Reason : Blood Pressure : / mmHG Vent. Rate : 070 BPM Atrial Rate : 070 BPM P-R Int : 284 ms QRS Dur : 112 ms QT Int : 442 ms P-R-T Axes : 076 062 065 degrees QTc Int : 477 ms Sinus rhythm with 1st degree A-V block Otherwise normal ECG When compared with ECG of 27-JAN-2020 09:23, No significant change was found Confirmed by SINAI ROSENTHAL M.D. ([id number]) on 02/19/2020 3:45:09 PM Referred By: [facility] Confirmed By:SINAI ROSENTHAL M.D.
== END 2020-02-16 15:10 | disposition home or self-care (01) ==
LOC: CCL 11:14
PROVIDERS: ATTEND Internal Medicine Cardiovascular Disease
PROC: 5A2204Z Restoration of Cardiac Rhythm, Single (ICD-10-PCS; principal; 2020-02-16)
DX: I48.19 Other persistent atrial fibrillation (principal); I11.0 Hypertensive heart disease with heart failure; I50.42 Chronic combined systolic (congestive) and diastolic (congestive) heart failure; I48.4 Atypical atrial flutter; M10.9 Gout, unspecified; E78.00 Pure hypercholesterolemia, unspecified; I34.0 Nonrheumatic mitral (valve) insufficiency; E66.01 Morbid (severe) obesity due to excess calories; Z68.41 Body mass index [BMI] 40.0-44.9, adult; Z86.73 Personal history of transient ischemic attack (TIA), and cerebral infarction without residual deficits; Z79.01 Long term (current) use of anticoagulants; Z79.82 Long term (current) use of aspirin; Z79.899 Other long term (current) drug therapy
CPT/HCPCS: 92960; 93005; 93010; J2704

== ENCOUNTER 2020-06-03 16:56 | Inpatient (IN) | payer MEDICARE ==
[~2020-06-03 16:56] MED LIST: Iopamidol-370 76% 500 ML 1 ML ONE
--- NOTE | 2020-06-03 17:25 | RAD ---
Exam: Chest one view HISTORY:Short of breath. Atrial fibrillation. Congestive heart failure. Comparison: 01/27/2020 FINDINGS: Cardiac silhouette:Cardiomegaly. Aorta: Atherosclerosis Pulmonary vessels: Normal Costophrenic angles: Small bilateral effusions LUNGS: Hyperinflated with chronic lung parenchymal changes. No masses or consolidation. Pneumothorax: None Osseous abnormalities: None IMPRESSION: 1. Cardiomegaly. 2. Small bilateral effusions. Correlate for early congestive heart failure. 3. Atherosclerosis.
[2020-06-03 18:03] LABS: #Eosinphils 0.1 thou/uL (0.0-0.7); #Lymphocytes 1.5 thou/uL (1.20-3.40); #Monocytes 0.8 thou/uL (0.11-0.59); #Neutrophils 4.1 thou/uL (1.40-6.50); %Basophils 0.5 % (0.0-1.0); %Eosinophils 1.1 % (0.0-10.0); %Lymphocytes 23.4 % (21.0-51.0); %Monocytes 12.2 % (0.0-10.0); %Neutrophils 62.7 % (42.0-75.0); Hemoglobin 9.8 g/dL (14.0-18.0); Mean Corpuscular HGB CONC 30.8 g/dL (32.0-36.0); Mean Corpuscular Hemoglobin 27.3 pg (27.0-31.0); Mean Corpuscular Volume 88.5 fL (78.0-98.0); Mean Platelet Volume 7.2 fL (7.4-10.4); Platelet Count 346 thou/uL (130-400); RBC Distribution Width 16.8 % (11.5-14.5); Red Blood Cell (RBC) Count 3.58 mill/uL (4.70-6.10); White Blood Cell (WBC) Count 6.5 thou/uL (4.8-10.8)
[2020-06-03 18:25] LABS: ALT (SGPT) 18 U/L (8-55); AST (SGOT) 23 U/L (5-34); Albumin 3.4 g/dL (3.4-4.8); Alkaline Phosphatase 179 U/L (40-110); Anion Gap 15 mmol/L (10-20); BUN (Urea Nitrogen) 31 mg/dL (8.4-25.7); Bilirubin, Total 1.1 mg/dL (0.2-1.2); Calc. Creatinine Clearance 0 mL/min (70-130); Calcium 8.6 mg/dL (7.8-10.44); Carbon Dioxide 23 mmol/L (23-31); Chloride 105 mmol/L (98-107); Globulin 3.9 g/dL (2.4-3.5); Glucose 108 mg/dL (80-115); Potassium 4.1 mmol/L (3.5-5.1); Protein, Total 7.3 g/dL (5.8-8.1); Sodium 139 mmol/L (136-145)
[2020-06-03] MEDS ORDERED: Furosemide 40 MG/4 ML VIAL ONE (22:18)
[2020-06-03] MEDS ORDERED: Nitroglycerin 0.4 MG TAB (25 Tab Bottle) SL PRN (22:39)
[2020-06-03] MEDS ORDERED: Calcium Carbonate 500 MG ChewTAB PO PRN (22:39)
[2020-06-03] MEDS ORDERED: Ondansetron PF 4 MG/2 ML Vial IVP PRN (22:39)
[2020-06-03] MEDS ORDERED: Acetaminophen 650 MG Suppository PR PRN (22:39)
[2020-06-03] MEDS ORDERED: Ondansetron ODT 4 MG TAB PO PRN (22:39)
--- NOTE | 2020-06-03 22:49 | PDOC.FPRHP ---
- History of Present Illness Chief Complaint: dyspnea History of Present Illness: 64 yo M With past medical history of congestive heart failure (EF 50-55 %), hypertension, and atrial fibrillation on chronic anticoagulation. He started having a cough 3 to 4 days ago and some mild chest pain which he thought was acid reflux. Yesterday he walked to the distance of about 10 feet and will get severely short of breath. Chest pain did not increase with activity. Symptoms resolved with rest. Denies noncompliance with medications. He is supposed to be a fluid restriction of 8 cups of liquid per day; however, he has been getting quite thirsty and is not sure if he has been doing this. Denies sick contacts and exposure to Covid. He notes legs have been more swollen, left greater than right. ED Course: In ED pt given 1 dose IV lasix. - Allergies/Adverse Reactions Allergies Allergy/AdvReac Type Severity Reaction Status Date / Time No Known Drug Allergies Allergy Verified 01/22/20 16:32 - Home Medications Medication Instructions Recorded Confirmed Type Allopurinol [Zyloprim] 300 mg PO DAILY 12/13/19 06/04/20 History Aspirin Chewable [Aspirin Chewable 81 mg PO DAILY 12/13/19 06/04/20 History Tablet] Atorvastatin Calcium [Lipitor] 40 mg PO HS 12/13/19 06/04/20 History PARoxetine HCl [Paroxetine HCl] 20 mg PO DAILY 12/13/19 06/04/20 History Apixaban [Eliquis] 5 mg PO BID 30 Days #60 tab 12/16/19 06/04/20 Rx Magnesium 250 mg PO DAILY 01/02/20 06/04/20 History Potassium Chloride 10 meq PO Q48H #15 tab 01/02/20 06/04/20 Rx Famotidine 20 mg PO DAILY 01/27/20 06/04/20 History Lisinopril 5 mg PO DAILY 01/27/20 06/04/20 History Boston-3 Fatty Acids/Fish Oil 1 cap PO DAILY 01/27/20 06/04/20 History [[place] 3 1,000 mg Softgel] Amiodarone [Cordarone] 200 mg PO DAILY 02/14/20 06/04/20 History Cholecalciferol (Vitamin D3) 125 mcg PO DAILY 02/16/20 06/04/20 History [Vitamin D3] Metoprolol Succinate 25 mg PO DAILY 02/16/20 06/04/20 History Diltiazem HCl [Cardizem CD] 120 mg PO DAILY 06/04/20 06/04/20 History Furosemide [Lasix] 40 mg PO Q48H 06/04/20 06/04/20 History - History PMHx: a-fib on eliquis, HFpEF, HTN, gout, CKD, kidney stones PSHx: Renal stents for kidney stones, cardiac ablation for a-fib December 2019 FHx: noncontributory Social: - Lives in [place], [place]. [employer] fan. - Denies drug use, tobacco use - Drinks alcohol socially - Review of Systems General: denies: fever/chills, weight/appetite/sleep changes Eyes: denies: vision changes ENT: denies: nasal congestion, rhinorrhea Respiratory: reports: cough, shortness of breath, exercise intolerance Cardiovascular: reports: chest pain, edema, orthopnea. denies: palpitation Gastrointestinal: denies: nausea, vomiting, diarrhea, abdominal pain, GI bleeding Genitourinary: denies: dysuria Skin: denies: rashes, jaundice, itching Musculoskeletal: denies: pain, tenderness Neurological: denies: syncope, weakness Psychological: denies: anxiety, depression - Vital signs BP: 138/84 (Left Arm), MAP: 102, Pulse: 73, Resp: 20, Pain: 0, O2 sat: 88 on 3 L (Room Air), Wt: 113 kg, Time: 06/03/2020 21:38. - Physical Exam Constitutional: NAD, awake, alert and oriented, well developed HEENT: normocephalic and atraumatic, PERRLA, EOMI, conjunctiva clear, no scleral icterus, grossly normal vision, grossly normal hearing, MMM Neck: supple, trachea midline Chest: no-tender to palpation Heart: RRR, normal S1/S2, no murmurs/rubs/gallops, pulses present -Heart: Left leg 1+ pitting edema, Right leg trace edema Lungs: no wheezing -Lungs: mild respiratory distress w/ tachypnea, lung sounds diminished & difficult to auscultate, possible mild bibasilar crackles Abdomen: soft, non-tender, no masses/distention, no hernias Musculoskeletal: normal structure, ROM grossly normal Neurological: no focal deficit Skin: no rash/lesions, good turgor, no jaundice Heme/Lymphatic: no unusual bruising or bleeding Psychiatric: normal mood and affect, intact recent and remote memory FMR H&P: Results - Labs Result Diagrams: 06/04/20 02:05 06/04/20 02:05 Lab results: WBC 6.5 thou/uL (4.8-10.8) 06/03/20 17:53 Hgb 9.8 g/dL (14.0-18.0) L 06/03/20 17:53 Hct 31.7 % (42.0-52.0) L 06/03/20 17:53 MCV 88.5 fL (78.0-98.0) 06/03/20 17:53 Plt Count 346 thou/uL (130-400) 06/03/20 17:53 Neutrophils % 62.7 % (42.0-75.0) 06/03/20 17:53 Sodium 139 mmol/L (136-145) 06/03/20 17:53 Potassium 4.1 mmol/L (3.5-5.1) 06/03/20 17:53 Chloride 105 mmol/L (98-107) 06/03/20 17:53 Carbon Dioxide 23 mmol/L (23-31) 06/03/20 17:53 BUN 31 mg/dL (8.4-25.7) H 06/03/20 17:53 Creatinine 1.84 mg/dL (0.7-1.3) H 06/03/20 17:53 Glucose 108 mg/dL (80-115) 06/03/20 17:53 Calcium 8.6 mg/dL (7.8-10.44) 06/03/20 17:53 Total Bilirubin 1.1 mg/dL (0.2-1.2) 06/03/20 17:53 AST 23 U/L (5-34) 06/03/20 17:53 ALT 18 U/L (8-55) 06/03/20 17:53 Alkaline Phosphatase 179 U/L (40-110) H 06/03/20 17:53 B-Natriuretic Peptide 79.2 pg/mL (0-100) 06/03/20 17:51 Serum Total Protein 7.3 g/dL (5.8-8.1) 06/03/20 17:53 Albumin 3.4 g/dL (3.4-4.8) 06/03/20 17:53 - EKG Interpretation EKG: NSR w/ 1st deg AV block - Radiology Interpretation Chest x-ray Status: image reviewed by me, report reviewed by me CT scan - chest Status: image reviewed by me, report reviewed by me Additional comment: LARGE PERICARDIAL EFFUSION, no pulmonary embolism FMR H&P: A/P - Plan 64 yo M admitted for dyspnea and multiple complaints: Pericardial effusion vs CHF exacerbation Covid rule out-> NEGATIVE - on oxygen requirement, does not use O2 at home during the day - influenza negative - Last Echo 01/2020 showed small effusion. - lasix given in ED with full bedside urinal full/adequate urine output - BNP not elevated - most likely cause of SOB is the effusion - reassess with ECHO in AM - strict I/Os - Daily weights - risk stratify for chest pain w/ FLP, A1C, TSH, Mg, Phos - patient is hemodynamically stable: consult Cardiology & CV Surg in the AM Normocytic anemia - could be losing blood into pericardium, no GI symptoms - iron, ferritin, B12, folate, smear, etc workup for cause WOJCIECH - continue CPAP at night HTN HFpEF w/ EF of 50-55% A-fib on chronic anticoagulation - hold eliquis and aspirin in case of procedure tomorrow - continue home anti-hypertensives. - continue other A-fib meds Gout CKD - continue home meds Diet: heart healthy-> NPO at midnight in case of procedure VTE: hold in case of procedure GI ppx: continue home famotidine IVF: SL, fluid restrict 1.8 L /day Discussed w/ Dr. Vargas. Disposition/LOS: Admit to telemetry, obs. Pending cardiology and CV surg consult in AM, may change pt to inpatient status. Addendum - Attending - Attending Attestation Date/Time: 06/04/20 0200 I personally evaluated the patient and discussed the management with Dr. Wood on 06/03/2020 I agree with the History, Examination, Assessment and Plan documented above with any addition or exceptions noted below - 64 yo M With past medical history of congestive heart failure (EF 50-55 %), hypertension, and atrial fibrillation on chronic anticoagulation. He started having a cough 3 to 4 days ago and some mild chest pain which he thought was acid reflux. Yesterday he walked to the distance of about 10 feet and will get severely short of breath. Chest pain did not increase with activity. Symptoms resolved with rest. Denies noncompliance with medications. He is supposed to be a fluid restriction of 8 cups of liquid per day; however, he has been getting quite thirsty and is not sure if he has been doing this. Denies sick contacts and exposure to Covid. He notes legs have been more swollen, left greater than right. Afebrile VSS. Exam repeated by me and agree with resident's documentation. Labs: WBC=7.3, H/H=9.5/31, Ied=187, Sd=156, K=4.1, Lz=368, CO2=23, BUN/Cr=31/1.84, Fcql=161, AST/ALT=23/18, trop I 0.010->0.016, CTA - no PE; cardiomegaly with large pericardial effusion. A/P: 1) Acute on chronic HFpEF - Admit to tele. Continue lasix and fluid restriction. 2) Pericardial effusion - increased in size; most likely secondary to CHF. Will obtain echo to further evaluate and obtain cards consult. 3) Normocytic anemia - will obtain studies for further evaluation.
[2020-06-03 23:22] LABS: Hemoglobin 9.5 g/dL (14.0-18.0); Mean Corpuscular HGB CONC 30.7 g/dL (32.0-36.0); Mean Corpuscular Hemoglobin 27.1 pg (27.0-31.0); Mean Corpuscular Volume 88.4 fL (78.0-98.0); Mean Platelet Volume 7.2 fL (7.4-10.4); Platelet Count 359 thou/uL (130-400); RBC Distribution Width 16.7 % (11.5-14.5); White Blood Cell (WBC) Count 7.3 thou/uL (4.8-10.8)
[2020-06-03 23:30] LABS: Hemoglobin A1c 5.5 % (4.0-6.0)
[2020-06-03 23:31] LABS: Band 3 % (5-11); Elliptocytes SLIGHT = 2-5 cells (100X) (0-1/hpf); Eosinophils 2 % (0-10); Lymphocytes 24 % (21-51); MDiff Complete? YES; Monocytes 7 % (0-10); Neutrophil 64 % (42-75)
--- NOTE | 2020-06-03 23:35 | CT ---
Exam: CT angiogram of the chest HISTORY: Congestive heart failure. Hypertension. Atrial fibrillation. On chronic anticoagulation. Cou gh x2-4 days. Chest pain. COMPARISON: None TECHNIQUE: CT angiogram of the chest is performed in the axial plane. Three-dimensional reformatted i mages are submitted for interpretation FINDINGS: Mediastinum: Mild enlarged right mediastinal/right paratracheal lymph nodes measuring 1.4 and 1.9 cm in maximum dimension. HEART: Cardiomegaly with large pericardial effusion. There are coronary calcifications. Aorta: Limited evaluation due to technique. Atherosclerosis without evidence of aneurysm. No obvious periaortic fat stranding. Upper solid abdominal viscera: No abnormality enhancement. Trachea and central bronchi: Patent Pleural spaces: Small to moderate right and small left pleural effusion. Lung parenchyma: Atelectatic changes in the lung bases, adjacent to a forementioned effusions. Additi onal nonspecific patchy groundglass opacities are noted. Pneumothorax: None Osseous structures: No lytic or blastic lesions Pulmonary arteries: Adequate contrast opacification pulmonary arterial system to the level of segment al arteries. No filling defect to suggest pulmonary embolism IMPRESSION: 1. No evidence of pulmonary arterial embolism to the level segmental arteries 2. Cardiomegaly with large pericardial effusion. 3. Bilateral pleural effusions with adjacent atelectasis.
[2020-06-03 23:41] LABS: Magnesium 2.1 mg/dL (1.6-2.6); Phosphorus 3.2 mg/dL (2.3-4.7)
[2020-06-03 23:42] LABS: Iron 23 ug/dL (65-175); Iron Binding Capacity, Total 331 mcg/dL (261-462); Transferrin, Serum 265 mg/dL (163-344)
[2020-06-03 23:46] LABS: Troponin I 0.016 ng/mL (< 0.028)
[2020-06-04 00:08] LABS: Ferritin 534.13 ng/mL (22-322)
[2020-06-04] MEDS ORDERED: Furosemide 20 MG TAB PO SCH (01:15)
[2020-06-04 02:22] LABS: SARS-CoV-2 NAA Rapid Test Not Detected (NotDetected)
[2020-06-04 02:34] LABS: #Eosinphils 0.1 thou/uL (0.0-0.7); #Lymphocytes 1.6 thou/uL (1.20-3.40); #Monocytes 0.8 thou/uL (0.11-0.59); #Neutrophils 3.7 thou/uL (1.40-6.50); %Basophils 0.2 % (0.0-1.0); %Eosinophils 1.7 % (0.0-10.0); %Lymphocytes 26.2 % (21.0-51.0); %Monocytes 12.4 % (0.0-10.0); %Neutrophils 59.5 % (42.0-75.0); Hemoglobin 9.5 g/dL (14.0-18.0); Mean Corpuscular HGB CONC 29.8 g/dL (32.0-36.0); Mean Corpuscular Hemoglobin 26.3 pg (27.0-31.0); Mean Corpuscular Volume 88.2 fL (78.0-98.0); Mean Platelet Volume 7.3 fL (7.4-10.4); Platelet Count 374 thou/uL (130-400); RBC Distribution Width 16.8 % (11.5-14.5); Red Blood Cell (RBC) Count 3.62 mill/uL (4.70-6.10); White Blood Cell (WBC) Count 6.2 thou/uL (4.8-10.8)
[2020-06-04 02:54] LABS: Troponin I Less than 0.010 ng/mL (< 0.028)
[2020-06-04 03:34] LABS: ALT (SGPT) 18 U/L (8-55); AST (SGOT) 26 U/L (5-34); Albumin 3.6 g/dL (3.4-4.8); Alkaline Phosphatase 176 U/L (40-110); Anion Gap 16 mmol/L (10-20); BUN (Urea Nitrogen) 29 mg/dL (8.4-25.7); Bilirubin, Total 1.3 mg/dL (0.2-1.2); Calc. Creatinine Clearance 69 mL/min (70-130); Calcium 8.7 mg/dL (7.8-10.44); Carbon Dioxide 24 mmol/L (23-31); Cardiac Risk 4.1 (Less than 4.5); Chloride 104 mmol/L (98-107); Cholesterol 106 mg/dl (< 200 Desired); Glucose 99 mg/dL (80-115); HDL Cholesterol 26 mg/dL (>60 Neg Risk); LDL Cholesterol, Calculated 65 mg/dL; Potassium 3.8 mmol/L (3.5-5.1); Protein, Total 7.6 g/dL (5.8-8.1); Sodium 140 mmol/L (136-145); Triglycerides 75 mg/dL (Less than 150)
--- NOTE | 2020-06-04 05:40 | PDOC.FM ---
- Subjective Subjective: Patient doing well this morning. States he feels a "night and day" difference between last night and this morning. Urmila dyspnea, not on oxygen. Reports urinating a lot overnight. - Objective Vital Signs & Weight: Weight Weight 113.4 kg Result Diagrams: 06/04/20 02:05 06/04/20 02:05 Phys Exam - Physical Examination Constitutional: NAD HEENT: moist MMs, sclera anicteric Neck: supple, full ROM Respiratory: no wheezing, clear to auscultation bilateral Cardiovascular: RRR, no significant murmur Gastrointestinal: soft, non-tender Musculoskeletal: no edema Neurological: non-focal, moves all 4 limbs Psychiatric: normal affect Skin: no rash Dx/Plan - Plan Plan: 64 yo M admitted for dyspnea and multiple complaints: #Pericardial effusion vs CHF exacerbation - on oxygen requirement, does not use O2 at home during the day - COVID and influenza negative - Last Echo 01/2020 showed small effusion. - CTA demonstrated large pericardial effusion, but likely over-read the effusion - lasix given in ED with full bedside urinal full/per nursing he has had ~4000L of urine output overnight - BNP 79 - most likely cause of SOB is the effusion - echo pending - strict I/Os - Daily weights - FLP -chol 106, LDL 65, HDL 26, Trig 75 -A1C 5.5 -TSH 2.416 - patient is hemodynamically stable: discussed the case with Dr. Montes, cardiology, this morning. Patient is not requiring oxygen and is feeling much better. Pending echo results the patient may be able to be discharged this afternoon #Normocytic anemia - could be losing blood into pericardium? vs anemia of chronic disease, no GI symptoms - iron 23(L), ferritin 534(H), B12 nml, folate pending, smear pending #WOJCIECH - continue CPAP at night #HTN #HFpEF w/ EF of 50-55% #A-fib on chronic anticoagulation - holding eliquis and aspirin in case of procedure today - continue home anti-hypertensives. - continue other A-fib meds #Gout #CKD - continue home meds Diet: NPO in case of procedure VTE: hold in case of procedure GI ppx: continue home famotidine IVF: SL, fluid restrict 1.8 L /day Dispo; Admitted to telemetry, obs. Pending echo patient may be discharged later today. Addendum - Attending - Attending Attestation Date/Time: 06/04/20 [id number] I personally evaluated the patient and discussed the management with Dr. Treviño. I agree with the History, Examination, Assessment and Plan documented above with any addition or exceptions noted below. Patient here with large pericardial effusion from CXR and CTA. He has no evidence of hemodynamic compromise or tampenade. He is feeling better after large diuresis overnight, not requiring O2. Cardiology has been informed and we are awaiting results of TTE before further management decisions are made.
[2020-06-04] MEDS ORDERED: Potassium Chloride 10 MEQ TAB PO SCH (09:00)
[2020-06-04] MEDS: Amiodarone 200 MG TAB PO SCH (11:35)
[2020-06-04] MEDS: Allopurinol 300 MG TAB PO SCH (11:35)
[2020-06-04] MEDS: Famotidine 20 MG TAB PO SCH (11:36)
[2020-06-04] MEDS: Lisinopril 5 MG TAB PO SCH (11:36)
[2020-06-04] MEDS: PARoxetine 20 MG TAB PO SCH (11:36)
[2020-06-04] MEDS: Magnesium Oxide 250 MG TAB PO SCH (11:36)
--- NOTE | 2020-06-04 18:53 | CON ---
DATE OF CONSULTATION: REASON FOR CONSULTATION: Pericardial effusion. HISTORY OF PRESENT ILLNESS: Mr. Angeles is a 64-year-old gentleman who has had a complicated several months. It has been complicated mainly by atrial fibrillation with multiple cardioversions and recurrence. He also underwent atrial fibrillation ablation in December of 2019. He has remained in sinus rhythm and has stayed out of the hospital since he has been in sinus rhythm. He recently presented with increased shortness of breath. He states he had difficulties just walking across the parking lot. His CT scan of the chest that suggested a pericardial effusion. Echo with Doppler today did suggest normal LVEF with a moderate to large-sized pericardial effusion mainly along the posterior aspect. He did have mild right atrial collapse with no right ventricular collapse present. He currently states he feels much better and would like to go home. PAST MEDICAL HISTORY: Hypertension; paroxysmal atrial fibrillation, status post ablation; diastolic dysfunction; obstructive sleep apnea; CVA; hyperlipidemia; hypertension; obesity; chronic kidney disease. HOME MEDICATIONS: 1. Omeprazole. 2. Atorvastatin. 3. Metoprolol. 4. Vitamin D. 5. Paroxetine. 6. Allopurinol. 7. Aspirin. 8. Lisinopril. 9. Eliquis. 10. Calcium. 11. Potassium. 12. Lasix. 13. Magnesium. 14. Melatonin. 15. Amiodarone. 16. Fish oil. 17. Cardizem. SOCIAL HISTORY: No current tobacco or alcohol use. REVIEW OF SYSTEMS: A 10-point review of systems is reviewed as above, otherwise negative. PHYSICAL EXAMINATION: GENERAL: Patient is a pleasant gentleman who is in no acute distress. The patient appears their stated age. VITAL SIGNS: Blood pressure 125/78, pulse 80, respirations 20. NEUROLOGIC: The patient is alert and oriented x3 with no focal neurologic deficits. HEENT: Sclerae without icterus. Mouth has moist mucous membranes with normal pallor. NECK: No JVD. Carotid upstroke brisk. No bruits bilaterally. LUNGS: Clear to auscultation with unlabored respirations. BACK: No scoliosis or kyphosis. CARDIAC: Regular rate and rhythm with normal S1 and S2. No S3 or S4 noted. No significant rubs, murmurs, thrills, or gallops noted throughout the precordium. PMI is not displaced. There is no parasternal heave. ABDOMEN: Soft, nontender, nondistended. No peritoneal signs present. No hepatosplenomegaly. No abnormal striae. EXTREMITIES: 2+ femoral and 2+ dorsalis pedis pulses. No cyanosis, clubbing, or edema. SKIN: No gross abnormalities. PERTINENT LABORATORY DATA: Include hemoglobin 9.5, hematocrit 31.9, platelet count of 374. Creatinine 1.74. IMPRESSION: 1. Moderate to large-sized pericardial effusion. 2. Shortness of breath. 3. Atrial fibrillation. RECOMMENDATIONS: Discussed the case with Dr. Bhatti. Mr. Angeles will be evaluated by Dr. Ernesto Bhatti in a.m. He is hemodynamically stable. He may need a pericardiocentesis versus a pericardial window. We will leave it to discretion of Dr. Bhatti. I would avoid any further Lasix at this point. We will keep n.p.o. after midnight and discontinue Eliquis. Job ID: [id number]
[2020-06-04 22:00] VITALS: BMI 39.0
[2020-06-04] MEDS: Atorvastatin Calcium 40 MG TAB PO SCH (22:46)
--- NOTE | 2020-06-05 06:06 | PDOC.FM ---
- Subjective Subjective: Patient doing well this morning, breathing comfortably on room air. Denies chest pain. Discussed plan of care for today, patient agreeable. - Objective Vital Signs & Weight: Vital Signs (12 hours) Temp Pulse Resp BP Pulse Ox 06/05/20 04:00 98.7 F 79 20 145/93 H 94 L 06/05/20 00:00 104 H 123/62 90 L 06/04/20 22:00 99.1 F 82 16 161/89 H 93 L Weight Weight 113.171 kg Result Diagrams: 06/04/20 02:05 06/04/20 02:05 Phys Exam - Physical Examination Constitutional: NAD HEENT: moist MMs, sclera anicteric Neck: supple, full ROM Respiratory: no wheezing, clear to auscultation bilateral Cardiovascular: RRR, no significant murmur Gastrointestinal: soft, non-tender Musculoskeletal: no edema, pulses present Neurological: non-focal, moves all 4 limbs Psychiatric: normal affect, A&O x 3 Skin: no rash, normal turgor Dx/Plan - Plan Plan: 64 yo M admitted for dyspnea and multiple complaints: #Pericardial effusion vs CHF exacerbation - on oxygen requirement, does not use O2 at home during the day - COVID and influenza negative - Last Echo 01/2020 showed small effusion. - CTA demonstrated large pericardial effusion, but likely over-read the effusion - lasix given in ED with full bedside urinal full/per nursing he has had ~4000L of urine output - BNP 79 - most likely cause of SOB is the effusion - echo: EF 55-60%, grade 2 diastolic dysfunction, moderate-severe pericardial effusion with mild right atrial collapse -Dr. Montes, cardiology, consulted; consulted Dr. Bhatti, EP, to discuss pericardiocentesis vs pericardial window -NPO -d/c eliquis, will hold off on extra dose of lasix for now - strict I/Os - Daily weights - FLP -chol 106, LDL 65, HDL 26, Trig 75 -A1C 5.5 -TSH 2.416 - patient is hemodynamically stable #Normocytic anemia - could be losing blood into pericardium? vs anemia of chronic disease, no GI symptoms - iron 23(L), ferritin 534(H), B12 nml, folate pending, smear pending #WOJCIECH - continue CPAP at night #HTN #HFpEF w/ EF of 50-55% #A-fib on chronic anticoagulation - holding eliquis and aspirin in case of procedure today - continue home anti-hypertensives. - continue other A-fib meds #Gout #CKD - continue home meds Diet: NPO in case of procedure VTE: hold in case of procedure GI ppx: continue home famotidine IVF: SL, fluid restrict 1.8 L /day Dispo; Admitted to telemetry, obs. Awaiting recs from Dr. Bhatti, EP Addendum - Attending - Attending Attestation Date/Time: 06/05/20 9486 I personally evaluated the patient and discussed the management with Dr. Treviño. I agree with the History, Examination, Assessment and Plan documented above with any addition or exceptions noted below. Patient stable, feeling well. Awaiting EP recs regarding his pericardial effusion, further mgmt per them per Cardiology.
[2020-06-05] MEDS ORDERED: FLU VACC QS2020-21(65YR UP)/PF 240 MCG/0.7 ML SYRINGE IM ONE (09:00)
[2020-06-05] MEDS ORDERED: Furosemide 40 MG TAB PO SCH (09:00)
[2020-06-05] MEDS ORDERED: PHENYLEPHRINE-NS 100 MCG/ML 10 ML SYRINGE ONE (09:10)
[2020-06-05] MEDS ORDERED: Dexamethasone 20 MG/5 ML VIAL ONE (09:10)
[2020-06-05] MEDS ORDERED: Glycopyrrolate 0.2 MG/ML 5 ML SYRINGE ONE (09:10)
[2020-06-05] MEDS ORDERED: PROPOFOL 200 MG/20 ML VIAL ONE (09:10)
[2020-06-05] MEDS ORDERED: Rocuronium Bromide 10 MG/ML (10ML VIAL) ONE (09:10)
[2020-06-05] MEDS ORDERED: Lidocaine 1% PF 5 ML VIAL ONE (09:10)
[2020-06-05] MEDS ORDERED: Ondansetron PF 4 MG/2 ML Vial ONE (09:10)
[2020-06-05] MEDS: Amiodarone 200 MG TAB PO SCH (09:18)
[2020-06-05] MEDS: Allopurinol 300 MG TAB PO SCH (09:18)
[2020-06-05] MEDS: Potassium Chloride 10 MEQ TAB PO SCH (09:19)
[2020-06-05] MEDS: Magnesium Oxide 250 MG TAB PO SCH (09:19)
[2020-06-05] MEDS: PARoxetine 20 MG TAB PO SCH (09:19)
[2020-06-05] MEDS: Famotidine 20 MG TAB PO SCH (09:19)
[2020-06-05] MEDS: Lisinopril 5 MG TAB PO SCH (09:19)
[2020-06-05] MEDS ORDERED: Fentanyl 100 MCG/2 ML VIAL ONE (10:18)
[2020-06-05] MEDS ORDERED: Bupivacaine PF 0.5% 30 ML VIAL ONE (11:38)
[2020-06-05] MEDS ORDERED: SUGAMMADEX SODIUM 200 MG/2 ML VIAL ONE (11:53)
--- NOTE | 2020-06-05 12:02 | CON ---
DATE OF CONSULTATION: HISTORY: This is a 64-year-old gentleman with a history of heart failure, although his ejection fraction is normal on current echo. He presented with a 2-day history of worsening dyspnea, and this has improved while he has been in the hospital the past 2 days. He was noted to have a large pericardial effusion by CT scan and echo. He did have an ablation for atrial fibrillation about 4 months ago, and has been on amiodarone and Eliquis, and maintained sinus rhythm. PAST MEDICAL HISTORY: Besides for atrial fibrillation positive for hypertension, gout, kidney stones, and chronic kidney disease. PAST SURGICAL HISTORY: Ablation in December of this past year as well as ureteral stents for kidney stones. SOCIAL HISTORY: He lives in [place]. He is not a smoker. PHYSICAL EXAMINATION: GENERAL: He is overweight gentleman of 113 kg, in no distress. LUNGS: Clear to auscultation anteriorly. CARDIAC: Regular rate and rhythm. No murmurs. ABDOMEN: Mildly obese. Soft and nontender. EXTREMITIES: He has trace to 1+ pitting edema in his legs. ASSESSMENT AND PLAN: I discussed the case with Dr. Bhatti and Simon both who feel that a pericardial window is indicated for symptoms, although his symptoms have improved somewhat with Lasix. Patient is agreeable. Job ID: [id number]
[2020-06-05] MEDS ORDERED: traMADol HCl 50 MG TAB PO PRN (12:09)
[2020-06-05] MEDS ORDERED: Fentanyl 100 MCG/2 ML VIAL SLOW IVP PRN (12:09)
[2020-06-05 12:32] LABS: RBC Count-Automated (BF) 177555 /cu.mm; WBC/Nucleated-Auto (BF) 7419 uL
--- NOTE | 2020-06-05 13:07 | CON ---
DATE OF CONSULTATION: 06/05/2020 REQUESTING PHYSICIAN: Chad Montes MD. REASON FOR CONSULTATION: I am seeing Mr. Angeles at our [facility] office as an electrophysiology interventional sale consultant. His problems are: 1. Large pericardial effusion. a. 2D echo from 06/04/2020 shows LVEF of 55% to 60%, moderate to severe left atrial enlargement, mild to moderate TR, and large pericardial effusion, some right atrial collapse also noted. b. 2D echo from 01/31/2020 demonstrates only small pericardial effusion with normal LVEF. 2. Recurrent atrial arrhythmias. a. Atrial fibrillation prompting a pulmonary venous isolation procedure on 01/22/2020 with up to 55 minutes of ablation as well as CTI ablation for typical atrial flutter on the same date. b. Recurrence of atypical atrial flutter prompting amiodarone loading and cardioversion on 02/16/2020 with maintenance of sinus rhythm since. 3. History of acute on chronic diastolic heart failure. 4. Obesity and sleep apnea. 5. CHADS-VASc score of 4 with prior stroke, hypertension and age on Eliquis therapy. 6. History of renal stones and stenting in 2011. ALLERGIES: NONE NOTED. MEDICATIONS: At home included, 1. Aspirin. 2. Zyloprim. 3. Paroxetine. 4. Lipitor. 5. Eliquis. 6. Magnesium sulfate. 7. Potassium chloride. 8. Famotidine. 9. [place]-3 fatty acid. 10. Lisinopril. 11. Amiodarone. 12. Cordarone. 13. Metoprolol succinate. 14. Vitamin D3. 15. Furosemide. 16. Diltiazem. SUBJECTIVE: Mr. Angeles is here with progressive dyspnea. He has started getting difficulty with walking across the parking lot. CT chest was suggestive of large pericardial effusion, which echo also confirmed. He is still maintaining sinus rhythm. I was consulted by Dr. Montes for further EP management. He had been diuresed over the last couple of days. His vital signs remained stable. He is not hypotensive, is somewhat hypertensive. He has ruled out any intercurrent infections, COVID negative. Currently, feeling somewhat better. REVIEW OF SYSTEMS: Rest of 12-point systems, otherwise unremarkable. PAST HISTORY: As above. He also has history of gout, chronic kidney disease, kidney stones. SURGICAL HISTORY: Significant for renal stents and CTI and pulmonary venous isolation procedure posterior wall ablation. Left atrial ablation on January 22, 2020. At that point, minor pericardial effusion was seen even prior to the procedure with no significant change afterwards. Followup echocardiogram also in January 30 did not show significant change in the pericardial effusion. Marked increase in his pericardial effusion noted on current admission only. SOCIAL HISTORY: The patient lives in [place], [place]. Denies EtOH and tobacco use. Alcohol socially. He works as a mailman. FAMILY HISTORY: Not contributory. PHYSICAL EXAMINATION: VITAL SIGNS: Blood pressure 145/93, heart rate 79, respiratory rate 20, temperature 98.7 degrees Fahrenheit. GENERAL: This is an alert and oriented man, with elevated BMI at 38.8 kg/sq m. NECK: Supple. Jugular veins slightly distended. CHEST: Coarse without crackles. HEART: Sounds are regular to rate and rhythm. No murmur or gallop. PMI is nonpalpable. ABDOMEN: Benign, obese. Bowel sounds are positive. EXTREMITIES: Lower extremities without edema, clubbing or cyanosis. Pulses are adequate. NEUROLOGIC: The patient is nonfocal. MUSCULOSKELETAL: Without joint swelling or deformity. SKIN: Without rash. DATABASE: EKG reviewed from June 03, 2020, revealing sinus rhythm, narrow QRS. QTc is [address] chest from 06/03/2020 shows large pericardial effusion. No evidence of pulmonary embolism and [id number] right and small left pleural effusions are seen. Chest x-ray shows marked cardiomegaly with nonspecific pulmonary pattern. LABORATORY DATA: White cell count 6.2, hemoglobin 9.5, platelet count is 374. Sodium 140, potassium 3.8, BUN is 29, creatinine 1.72. is 23, ferritin 534, elevated. AST, ALT are 26 and 18. Troponin I 0.01. BNP is 79 on admission. TSH is 2.41. ASSESSMENT/PLAN: 1. Mr. Angeles is a 64-year-old man with history of diastolic heart failure, recurrent and persistent atrial fibrillation status post pulmonary venous isolation posterior wall and CTI ablation on January 21. Although, he had minor insignificant pericardial effusion pre and post ablation, now, he is presenting with a large pericardial effusion with associated exertional dyspnea, Although, so far no severe hemodynamic compromise is present, a 2D echo may be suggestive of slight right atrial collapse and he may be early phases of tamponade. a. The exact reason for the pericardial effusion is unclear. Hence, no effusion was detected postablation, long-term pericardial irritation, possible hemorrhagic conversion from his ongoing anticoagulation or even alternative etiologies like viral pericarditis are all in the differential diagnosis list. b. Either way, it is reasonable to consider evacuation for these effusion. Since the morbid obesity and possibly loculated effusions, pericardial window placement would be the best approach for this. c. I discussed with Dr. Rousseau, cardiovascular surgeon, who is kindly agreeable to the pericardial window placement procedure. I have discussed the pros and cons, risks, benefits with the patient as well. 2. Atrial fibrillation, currently in sinus rhythm, good suppression with the prior ablation procedure and the amiodarone therapy without evident recurrence. For now, hence the likely pericardial space manipulation will continue amiodarone therapy, although long-term weaning of amiodarone is considered possibly next month or 2. We will make arrangements about 6 weeks for followup. 3. Elevated CHADS-VASc score. Currently, anticoagulation on hold. Hence, upcoming pericardial window placement will consider resuming once surgically feasible, likely he is maintaining sinus rhythm. He did not have history of left atrial appendage isolation. 4. Chronic amiodarone use for now no evidence of pulmonary, thyroid, liver toxicity. Assessment of these will be necessary if he remains in this drug long-term. 5. History of obesity, weight loss is recommended. 6. Diastolic heart failure. Aggressive blood pressure control. Gentle diuresis only. Monitor renal function. We will follow with you while in hospital and arrange for outpatient followup in about 6 weeks. Job ID: [id number] [facility] HOSPITALDevorah
[2020-06-05 13:15] LABS: BF Color Red; Body Fluid Source Pericardial Fluid; Clarity Cloudy/Turbid (Clear); Tube # EDTA
[2020-06-05 13:17] LABS: BF Segmented Neutrophils 20 %; Cell Count Non Hematic 20 %; Eosinophils 1 %; Lymphocytes 59 %
--- NOTE | 2020-06-05 14:02 | OP ---
DATE OF PROCEDURE: 06/05/2020 PREOPERATIVE DIAGNOSIS: Large pericardial effusion with early tamponade. POSTOPERATIVE DIAGNOSIS: Large pericardial effusion with early tamponade. PROCEDURE PERFORMED: Pericardial window with drainage of about 1350 mL of old bloody fluid and obtaining a biopsy of the pericardium. DESCRIPTION OF PROCEDURE: After adequate anesthesia had been obtained, incision was made over the xiphoid process and the fascia was divided in the midline and blunt dissection was used to expose the anterior pericardial surface, where the coagulation was used to remove the fat. The pericardium was then entered with the Bovie and the incision widened and a piece removed for permanent section. Following this, a Armando drain was placed #19 into the posterior pericardium and the fascia was then reapproximated with 0 [id number] Vicryl sutures x2. Subcutaneous tissue and skin were closed in layers and 0.5% Marcaine was used to infiltrate the subcutaneous tissues. The patient tolerated the procedure well. Job ID: [id number]
[2020-06-05 14:40] LABS: Hematocrit 29.7 % (37.5-51.0); RBC Folate Test Component 1549 ng/mL (>498)
[2020-06-05] MEDS: Acetaminophen 325 MG TAB PO PRN (20:28)
[2020-06-05] MEDS: Atorvastatin Calcium 40 MG TAB PO SCH (20:28)
--- NOTE | 2020-06-06 06:09 | PDOC.FM ---
- Subjective Subjective: Patient was sitting up in bed comfortably at the time of evaluation. Patient denied any acute overnight events, particularly with regard to chest pain or worsening SOB, and stated that he had the best night's sleep that he's had in quite some time. No acute overnight events were reported by the Resident Night Team or Nursing Staff. - Objective Vital Signs & Weight: Vital Signs (12 hours) Temp Pulse Resp BP Pulse Ox 06/06/20 03:54 98.1 F 78 14 109/63 98 06/06/20 00:00 97.5 F L 69 93/53 L 98 06/05/20 19:56 98.6 F 78 14 91/57 L 98 Weight Weight 113.217 kg I&O: 06/04/20 06/05/20 06/06/20 06:59 06:59 06:59 Output Total 150 Balance -150 Result Diagrams: 06/06/20 07:01 06/06/20 07:01 Phys Exam - Physical Examination Constitutional: NAD HEENT: moist MMs Neck: supple, full ROM Respiratory: no wheezing, no rales, no rhonchi, clear to auscultation bilateral Cardiovascular: RRR, no significant murmur, no rub Gastrointestinal: soft, non-tender, no distention, positive bowel sounds Musculoskeletal: no edema, pulses present Neurological: non-focal, moves all 4 limbs Psychiatric: normal affect Dx/Plan (1) Pericardial effusion Code(s): I31.3 - PERICARDIAL EFFUSION (NONINFLAMMATORY) Status: Acute (2) OSMANI (acute kidney injury) Code(s): N17.9 - ACUTE KIDNEY FAILURE, UNSPECIFIED Status: Acute (3) Acute exacerbation of CHF (congestive heart failure) Code(s): I50.9 - HEART FAILURE, UNSPECIFIED Status: Acute (4) Atrial fibrillation with rapid ventricular response Code(s): I48.91 - UNSPECIFIED ATRIAL FIBRILLATION Status: Chronic (5) ONEIL (dyspnea on exertion) Code(s): R06.00 - DYSPNEA, UNSPECIFIED Status: Acute (6) Gout Code(s): M10.9 - GOUT, UNSPECIFIED Status: Chronic (7) HTN (hypertension) Code(s): I10 - ESSENTIAL (PRIMARY) HYPERTENSION Status: Chronic Qualifiers: Hypertension type: essential hypertension Qualified Code(s): I10 - Essential (primary) hypertension (8) Obese Code(s): E66.9 - OBESITY, UNSPECIFIED Status: Chronic Qualifiers: Obesity type: unspecified obesity type (9) Severe mitral regurgitation Code(s): I34.0 - NONRHEUMATIC MITRAL (VALVE) INSUFFICIENCY Status: Chronic - Plan Plan: Patient is a 64 y/o male with a PMH notable for CHF and A-Fib who presented to the ER for evaluation of SOB and chest pain. #Pericardial Effusion, s/p Pericardial Window - Echo (01/2020): Small effusion noted - CTA Chest/Thorax: Large pericardial effusion - Repeat Echo (05/2020): EF (55-60%), large pericardial effusion with mild R Atrium collapse, Grade II Diastolic Dysfunction - Dr. Montes (Cardiology): Consulted, recs appreciated - Dr. Bhatti (EP): Consulted, recs appreciated - Dr. Rousseau (CVSurg): Consulted, recs appreciated - s/p Pericardial Window procedure on 06/05 that drained ~1.3L of "old bloody fluid" - Pericardial Biopsy: Pending - Pericardial Fluid Cx/Path Report: Pending - Currently requires supplemental O2, although patient states that his respiratory function has improved greatly since admission - COVID: Negative - Influenza: Negative - BNP: 79 - Strict I/Os - Daily Weights - Patient appears hemodynamically stable - will order repeat CBC and BMP this AM #Normocytic Anemia - Serum Fe: 23(L) - Ferritin: 534(H) - B12: WNL - Folate: WNL - Peripheral Smear: Normocytic Anemia, possibly due to acute blood loss or multiple chronic problems #WOJCIECH - Will continue CPAP at night #HTN - Will continue home medication regimen #HFpEF w/ EF of 50-55% - See above #A-Fib on Chronic Anticoagulation - Home medications held for Pericardial Window - will restart based on specialist recs #Gout - Will continue home medication regimen #CKD - Will avoid nephrotoxic agents and renally dose medications when possible - Will otherwise continue home medication regimen PCP: CC Code: Full Diet: HH w/ Low Sodium (Fluid Restriction < 1.8L per day) Activity: Ad kaiden VTE PPx: Currently held GI PPx: Home Famotidine IVF: SL Dispo: Patient is currently stable and appears greatly improved since admission following Pericardial Window procedure for Pericardial Effusion. Will coordinate closely with specialists as per above, restart home medication regimens as ind icated, and begin DC planning. Expected LOS < 48H. Addendum - Attending - Attending Attestation Date/Time: 06/06/20 7729 I personally evaluated the patient and discussed the management with Dr. Robertson. I agree with the History, Examination, Assessment and Plan documented above with any addition or exceptions noted below. Patient doing very well. Reports no dyspnea. We are awaiting further recs from CV surgery tomorrow about removal of drain tube and discharge at that time. Path pending.
[2020-06-06 07:25] LABS: Hemoglobin 10.5 g/dL (14.0-18.0); Mean Corpuscular HGB CONC 30.7 g/dL (32.0-36.0); Mean Corpuscular Hemoglobin 27.2 pg (27.0-31.0); Mean Corpuscular Volume 88.7 fL (78.0-98.0); Mean Platelet Volume 7.3 fL (7.4-10.4); Platelet Count 404 thou/uL (130-400); RBC Distribution Width 16.9 % (11.5-14.5); Red Blood Cell (RBC) Count 3.86 mill/uL (4.70-6.10); White Blood Cell (WBC) Count 11.8 thou/uL (4.8-10.8)
[2020-06-06 07:40] LABS: Anion Gap 13 mmol/L (10-20); BUN (Urea Nitrogen) 25 mg/dL (8.4-25.7); Calc. Creatinine Clearance 81 mL/min (70-130); Calcium 8.6 mg/dL (7.8-10.44); Carbon Dioxide 26 mmol/L (23-31); Chloride 104 mmol/L (98-107); Glucose 143 mg/dL (80-115); Potassium 4.8 mmol/L (3.5-5.1); Sodium 138 mmol/L (136-145)
[2020-06-06] MEDS: Magnesium Oxide 250 MG TAB PO SCH (07:54)
[2020-06-06] MEDS: Amiodarone 200 MG TAB PO SCH (07:54)
[2020-06-06] MEDS: Famotidine 20 MG TAB PO SCH (07:54)
[2020-06-06] MEDS: Aspirin 81 mg Enteric Coated Tablet PO SCH (07:54)
[2020-06-06] MEDS: PARoxetine 20 MG TAB PO SCH (07:55)
[2020-06-06] MEDS: Allopurinol 300 MG TAB PO SCH (07:55)
[2020-06-06] MEDS: Lisinopril 5 MG TAB PO SCH (07:55)
--- NOTE | 2020-06-06 07:59 | PRG ---
DATE OF SERVICE: 06/06/2020 The patient is now postoperative day #1 from pericardial window and is stable. He has drained about 150 mL since surgery. He reports this is the best night's sleep that he has had in quite a while and did not wake up coughing. Fluid is clearing in color. At this time, I anticipate that the drain can come out probably tomorrow if the output continues to decrease, but if not, this can be handled as an outpatient, having the patient drain the fluid daily and keep track of his output to return to the office for removal. Job ID: [id number]
--- NOTE | 2020-06-06 10:08 | PDOC.EP ---
- Subjective Date: 06/06/20 Time: 10:07 Interval History: Underwent Pericardial window placement yesterday. Feels much better. - Review of Systems Constitutional: denies: chills, fever, malaise, sweats, weakness, other Respiratory: denies: cough, dry, hemoptysis, pleuritic pain, shortness of breath, SOB with excertion, sputum, wheezing, other Cardiology: denies: chest pain, edema, heart racing, light headedness, paroxysmal noc. dyspnea, orthopnea, palpitations, passing out, pleuritic pain, pressure, swelling, other Gastrointestinal: denies: abdominal pain, constipation, diarrhea, hematochezia, melena, nausea, vomitting, other Musculoskeletal: denies: unstable gait, falls, neck pain, shoulder pain, arm pain, hand pain, leg pain, foot pain, other Neurological: denies: headache, vision changes, other - Objective Allergies/Adverse Reactions: Allergies Allergy/AdvReac Type Severity Reaction Status Date / Time No Known Drug Allergies Allergy Verified 06/04/20 22:01 Current Medications Acetaminophen (Acetaminophen 325 Mg Tab) 650 mg PO Q4H PRN PRN Reason: Headache/Fever/Mild Pain (1-3) Last Admin: 06/05/20 20:28 Dose: 650 mg Documented by: Acetaminophen (Acetaminophen 650 Mg Suppository) 650 mg DC Q4H PRN PRN Reason: Headache/Fever/Mild Pain (1-3) Allopurinol (Allopurinol 300 Mg Tab) 300 mg PO DAILY [facility] Last Admin: 06/06/20 07:55 Dose: 300 mg Documented by: Amiodarone HCl (Amiodarone 200 Mg Tab) 200 mg PO DAILY [facility] Last Admin: 06/06/20 07:54 Dose: 200 mg Documented by: Aspirin (Aspirin 81 Mg Enteric Coated Tablet) 81 mg PO DAILY [facility] Last Admin: 06/06/20 07:54 Dose: 81 mg Documented by: Atorvastatin Calcium (Atorvastatin Calcium 40 Mg Tab) 40 mg PO HS [facility] Last Admin: 06/05/20 20:28 Dose: 40 mg Documented by: Calcium Carbonate (Calcium Carbonate 500 Mg Chewtab) 1,000 mg PO Q4H PRN PRN Reason: Heartburn or Indigestion Diltiazem HCl (Diltiazem Cd 120 Mg Cap) 120 mg PO DAILY [facility] Last Admin: 06/06/20 07:54 Dose: 120 mg Documented by: Famotidine (Famotidine 20 Mg Tab) 20 mg PO DAILY [facility] Last Admin: 06/06/20 07:54 Dose: 20 mg Documented by: Fentanyl (Fentanyl 100 Mcg/2 Ml Vial) 50 mcg SLOW IVP Q2H PRN PRN Reason: Severe Pain (7-10) Lisinopril (Lisinopril 5 Mg Tab) 5 mg PO DAILY [facility] Last Admin: 06/06/20 07:55 Dose: 5 mg Documented by: Magnesium Oxide (Magnesium Oxide 250 Mg Tab) 250 mg PO DAILY [facility] Last Admin: 06/06/20 07:54 Dose: 250 mg Documented by: Metoprolol Succinate (Metoprolol Succinate Xl 25 Mg Tab) 25 mg PO DAILY [facility] Last Admin: 06/06/20 07:54 Dose: 25 mg Documented by: Nitroglycerin (Nitroglycerin 0.4 Mg Tab (25 Tab Bottle)) 0.4 mg SL Q5MIN PRN PRN Reason: Chest Pain Ondansetron HCl (Ondansetron Odt 4 Mg Tab) 4 mg PO Q6H PRN PRN Reason: Nausea/Vomiting Ondansetron HCl (Ondansetron Pf 4 Mg/2 Ml Vial) 4 mg IVP Q6H PRN PRN Reason: Nausea/Vomiting Paroxetine HCl (Paroxetine 20 Mg Tab) 20 mg PO DAILY [facility] Last Admin: 06/06/20 07:55 Dose: 20 mg Documented by: Potassium Chloride (Potassium Chloride 10 Meq Tab) 10 meq PO Q2D [facility] Last Admin: 06/05/20 09:19 Dose: 10 meq Documented by: Sodium Chloride (Flush - Normal Saline 10 Ml Syringe) 10 ml IVF Q12HR PRN PRN Reason: Saline Flush Sodium Chloride (Flush - Normal Saline 10 Ml Syringe) 10 ml IVF PRN PRN PRN Reason: Saline Flush Tramadol HCl (Tramadol Hcl 50 Mg Tab) 100 mg PO Q6H PRN PRN Reason: Moderate Pain (4-6) Vital Signs & Weight: Vital Signs Temp Pulse Resp BP BP Pulse Ox 06/06/20 07:55 70 109/67 06/06/20 07:54 70 109/67 06/06/20 07:50 98.1 F 70 18 109/67 95 06/06/20 03:54 98.1 F 78 14 109/63 98 06/06/20 00:00 97.5 F L 69 93/53 L 98 Weight 249 lb 9.6 oz I/O: I/O 06/05/20 06/06/20 06/07/20 06:59 06:59 06:59 Intake Total 240 Output Total 400 Balance -160 - Quality Measures CV meds: Eliquis: Yes (on hold) - Physical Exam General: alert & oriented x3, appears well, no apparent distress HEENT: pallor Neck: no JVD/HJR, no thromegaly Cardiology: no murmur, tachycardia Lungs: normal breath sounds, no wheezes, no rales Neurology: grossly intact Abdomen: unremarkable, soft, non-tender Extremities: warm Skin: other (Pericardial drain is in place.) - Chadsvasc Risk factors Congestive heart failure: 1 Hypertension: 1 Age 65-74: 1 Stroke/TIA/thrombo-embolism: 2 Risk Score: 5 - Labs Result Diagrams: 06/06/20 07:01 06/06/20 07:01 - EKG Interpretation EKG Method: Telemetry EKG shows: Sinus rhythm - Assessment/Plan Assessment/Plan: 1. Mr. Angeles is a 64-year-old man with history of diastolic heart failure, recurrent and persistent atrial fibrillation status post pulmonary venous isolation posterior wall and CTI ablation on January 21. Although, he had minor insignificant pericardial effusion pre and post ablation, now, he is presenting with a large pericardial effusion with associated exertional dyspnea, 1. Large pericardial effusion. a. 2D echo from 06/04/2020 shows LVEF of 55% to 60%, moderate to severe left atrial enlargement, mild to moderate TR, and large pericardial effusion, some right atrial collapse also noted. b. 2D echo from 01/31/2020 demonstrates only small pericardial effusion with normal LVEF. 2. Recurrent atrial arrhythmias. a. Atrial fibrillation prompting a pulmonary venous isolation procedure on 01/22/2020 with up to 55 minutes of ablation as well as CTI ablation for typical atrial flutter on the same date. b. Recurrence of atypical atrial flutter prompting amiodarone loading and cardioversion on 02/16/2020 with maintenance of sinus rhythm since. 3. History of acute on chronic diastolic heart failure. 4. Obesity and sleep apnea. 5. CHADS-VASc score of 4 with prior stroke, hypertension and age on Eliquis therapy. 6. History of renal stones and stenting in 2011. Plan 1. S/P Pericardial window placement 06/05/19 with 43632 cc serosanguinous fluid drained. 2. History of persistent Atrial fibrillation, currently in sinus rhythm, good suppression with the prior ablation procedure and the amiodarone therapy without evident recurrence. For now, hence the likely pericardial space manipulation will continue amiodarone therapy, although long-term weaning of amiodarone is considered possibly next month or 2. We will make arrangements about 6 weeks for followup. 3. Elevated CHADS-VASc score. Currently, anticoagulation on hold. Hence, upcoming pericardial window placement will consider resuming once surgically feasible, Stroke risk is not extreme hence now he is maintaining sinus rhythm. 4. Chronic amiodarone use for now no evidence of pulmonary, thyroid, liver to xicity. Assessment of these will be necessary if he remains in this drug long-term. 5. History of obesity, weight loss is recommended. 6. Diastolic heart failure. Aggressive blood pressure control. Gentle diuresis only. Monitor renal function. We will follow with you while in hospital and arrange for outpatient followup in about 6 weeks. 06/06/19. stable post Peroic window placement Post op day #1. Drain left in place - as per CTS. OAC on hold. Continuing maintenance PO amio 200mg a day..
[2020-06-06] MEDS: Acetaminophen 325 MG TAB PO PRN (15:58)
--- NOTE | 2020-06-06 17:11 | PRG ---
DATE OF SERVICE: 06/06/2020 SUBJECTIVE: Mr. Angeles is doing much better. He states he is breathing much better. He had 1300 mL of bloody effusion drained from his pericardium. OBJECTIVE: VITAL SIGNS: Blood pressure 109/67, pulse 70, and respirations 20. LUNGS: Clear to auscultation. HEART: Regular rate and rhythm. ABDOMEN: Soft, nontender, and nondistended. EXTREMITIES: No edema. IMPRESSION: 1. Pericardial effusion. 2. Atrial fibrillation status post ablation. Mr. Angeles is doing very well. He continues to drain from the pericardium, he last had 200 mL noted. Further recommendation per Dr. Mp Rousseau. Dr. Bhatti is also following. Further recommendation on anticoagulation therapy per Dr. Bhatti. Otherwise, no recommendations. Job ID: [id number]
[2020-06-06] MEDS: Atorvastatin Calcium 40 MG TAB PO SCH (20:19)
--- NOTE | 2020-06-07 06:04 | PDOC.FM ---
- Subjective Subjective: Patient was sitting up in bed comfortably at the time of evaluation. He denied any acute overnight events, particularly with regard to chest pain or SOB. No acute overnight events were reported by the Resident Night Team or Nursing Staff, and the telemetry strip from the last 12H appeared consistent with previous tracings. - Objective Vital Signs & Weight: Vital Signs (12 hours) Temp Pulse Resp BP Pulse Ox 06/07/20 03:42 97.6 F 63 16 107/66 95 06/07/20 01:58 99 06/07/20 00:00 59 L 06/06/20 19:25 97.5 F L 65 16 115/66 99 Weight Weight 112.808 kg I&O: 06/05/20 06/06/20 06/07/20 06:59 06:59 06:59 Intake Total 240 240 Output Total 400 53 Balance -160 187 Result Diagrams: 06/06/20 07:01 06/06/20 07:01 Phys Exam - Physical Examination Constitutional: NAD HEENT: moist MMs Neck: supple, full ROM Respiratory: no wheezing, no rales, no rhonchi, clear to auscultation bilateral Cardiovascular: RRR, no significant murmur, no rub Gastrointestinal: soft, non-tender, no distention, positive bowel sounds s/p Tube Removal Musculoskeletal: no edema, pulses present Neurological: non-focal, moves all 4 limbs Psychiatric: normal affect Dx/Plan (1) Pericardial effusion Code(s): I31.3 - PERICARDIAL EFFUSION (NONINFLAMMATORY) Status: Acute (2) OSMANI (acute kidney injury) Code(s): N17.9 - ACUTE KIDNEY FAILURE, UNSPECIFIED Status: Acute (3) Acute exacerbation of CHF (congestive heart failure) Code(s): I50.9 - HEART FAILURE, UNSPECIFIED Status: Acute (4) Atrial fibrillation with rapid ventricular response Code(s): I48.91 - UNSPECIFIED ATRIAL FIBRILLATION Status: Chronic (5) ONEIL (dyspnea on exertion) Code(s): R06.00 - DYSPNEA, UNSPECIFIED Status: Acute (6) Gout Code(s): M10.9 - GOUT, UNSPECIFIED Status: Chronic (7) HTN (hypertension) Code(s): I10 - ESSENTIAL (PRIMARY) HYPERTENSION Status: Chronic Qualifiers: Hypertension type: essential hypertension Qualified Code(s): I10 - Essent ial (primary) hypertension (8) Obese Code(s): E66.9 - OBESITY, UNSPECIFIED Status: Chronic Qualifiers: Obesity type: unspecified obesity type (9) Severe mitral regurgitation Code(s): I34.0 - NONRHEUMATIC MITRAL (VALVE) INSUFFICIENCY Status: Chronic - Plan Plan: Patient is a 64 y/o male with a PMH notable for CHF and A-Fib who presented to the ER for evaluation of SOB and chest pain. #Pericardial Effusion, s/p Pericardial Window - Echo (01/2020): Small effusion noted - CTA Chest/Thorax: Large pericardial effusion - Repeat Echo (05/2020): EF (55-60%), large pericardial effusion with mild R Atrium collapse, Grade II Diastolic Dysfunction - Dr. Montes (Cardiology): Consulted, recs appreciated - Dr. Bhatti (EP): Consulted, recs appreciated - will confirm anticoagulation regimen this AM - Dr. Rousseau (CVSurg): Consulted, recs appreciated - s/p Pericardial Window procedure on 06/05 that drained ~1.3L of "old bloody fluid" - Pericardial Biopsy: Pending - Pericardial Fluid Cx: Pending - Pericardial Fluid Path Report: No malignant cells - Respiratory status greatly improved - patient no longer on supplemental O2 - COVID: Negative - Influenza: Negative - BNP: 79 - Strict I/Os - Daily Weights - Patient appears hemodynamically stable #Normocytic Anemia - Serum Fe: 23(L) - Ferritin: 534(H) - B12: WNL - Folate: WNL - Peripheral Smear: Normocytic Anemia, possibly due to acute blood loss or multiple chronic problems #WOJCIECH - Will continue CPAP at night #HTN - Will continue home medication regimen #HFpEF w/ EF of 50-55% - See above #A-Fib on Chronic Anticoagulation - Home medications held for Pericardial Window - will restart based on specialist recs #Gout - Titrated home regimen based on renal function - will resume following DC with recommended up-titration with patient's PCP #CKD - Will avoid nephrotoxic agents and renally dose medications when possible - Will otherwise continue home medication regimen PCP: CC Code: Full Diet: HH w/ Low Sodium (Fluid Restriction < 1.8L per day) Activity: Ad kaiden VTE PPx: Currently held GI PPx: Home Famotidine IVF: SL Dispo: Patient is currently stable and appears greatly improved since admission following Pericardial Window procedure for Pericardial Effusion. Will coordinate closely with specialists as per above, restart home medication regimens as indicated, and plan for DC like today. Expected LOS < 24H. Addendum - Attending - Attending Attestation Date/Time: 06/07/20 9914 I personally evaluated the patient and discussed the management with Dr. Robertson. I agree with the History, Examination, Assessment and Plan documented above with any addition or exceptions noted below. Patient feeling improved. Drainage tube removed, feels well. Stable for discharge once we discuss OAC and antiarrhythmic meds with EP.
[2020-06-07] MEDS: Amiodarone 200 MG TAB PO SCH (08:12)
[2020-06-07] MEDS: Famotidine 20 MG TAB PO SCH (08:12)
[2020-06-07] MEDS: Magnesium Oxide 250 MG TAB PO SCH (08:12)
[2020-06-07] MEDS: Lisinopril 5 MG TAB PO SCH (08:12)
[2020-06-07] MEDS: PARoxetine 20 MG TAB PO SCH (08:12)
[2020-06-07] MEDS: Aspirin 81 mg Enteric Coated Tablet PO SCH (08:12)
[2020-06-07] MEDS: Potassium Chloride 10 MEQ TAB PO SCH (08:14)
--- NOTE | 2020-06-07 10:09 | PQF ---
CLINICAL DOCUMENTATION CLARIFICATION FORM: Dear Dr.P Harrington *r Date: 06/07/2020 Please exercise your independent, professional judgment in responding to the clarification form. Clinical indicators are provided on the bottom of this form for your review. Please check appropriate box(es): ACUTE ON CHRONIC CONGESTIVE HEART FAILURE: B. TYPE: [ ] Systolic / HFrEF [ X ] Diastolic / HFpEF [ ] Combined Systolic / Diastolic [ ] Other diagnosis [ ] Unable to determine In addition, please specify: Present on Admission (POA): [ X ] Yes [ ] No [ ] Unable to determine For continuity of documentation, please document condition throughout progress notes and discharge summary. Thank You. To be completed by CDI/Coding staff for physician review: CLINICAL INDICATORS - SIGNS / SYMPTOMS / LABS / RESULTS AND LOCATION IN EMR ED report: PMH of CHF, HTN and AFIB on chronic anticoagulation. He started having a cough 3-4 days ago and some mild chest pain which he thought was acid reflux. Yesterday he walked to the distance of 10 feet and will get severely short of breath. Final ED Dx: CHF Exacerbation, ACS rule out, Covid rule out 06/05 H&P/ [place]: PMH of CHF (EF 50-55%) 06/03 Consult / Simon: status post ablation, diastolic dysfunction; impression Moderate to large sized pericardial effusion, SOB, Atrial Fibrillation. 06/04 Pn/Marcelo: Acute Exacerbation of CHF 06/06 EP Consult/ Magy: Mr. Angeles is a 64 year old man with history of diastolic heart failure 06/06 RISKS FACTORS / RESULTS AND LOCATION IN EMR Pericardial effusion, Acute exacerbation of CHF ( PN/ Juany) 06/07 TREATMENTS / RESULTS AND LOCATION IN EMR Supplemental oxygen ( 06/03 -06/06{) Cardiology Consult (Simon) 06/04 Lasix IV (06/03 present) Thank you! CDS Signature: Adriana Chowdhury RN Phone #: [phone] Date: 06/07/2020 This is a permanent part of the Medical Record [facility]
--- NOTE | 2020-06-07 11:05 | PQF ---
CLINICAL DOCUMENTATION CLARIFICATION FORM Dear *r Date / Time: 06/07/2020 1030 Please exercise your independent, professional judgment in responding to the clarification form. Clinical indicators are provided on the bottom of this form for your review. Please check appropriate box(es): [ ] Sepsis [ ] Sepsis due to: pericardial effusion [ ] Sepsis not due to : pericardial effusion [ ] Septic Shock [ ] Localized infection without sepsis [ X ] SIRS due to non-infectious process (please specify etiology) Pericardial Effusion [X ] with organ dysfunction [ ] without organ dysfunction [ ] Other diagnosis [ ] Unable to determine In addition, please specify: Present on Admission (POA): [ X ] Yes [ ] No [ ] Unable to determine For continuity of documentation, please document condition throughout progress notes and discharge summary. Thank You. To be completed by CDI/Coding staff for physician review: CLINICAL INDICATORS - SIGNS / SYMPTOMS / LABS / RESULTS AND LOCATION IN MR Temp 101.2, Resp 28, 06/06 WBC. 11.8 Op note: Pericardial Window with drainage of about 1350 ml of old bloody fluid and obtaining a biopsy of the pericardiaum. 06/05 RISK FACTORS / RESULTS AND LOCATION IN MR Pericardial effusion, advanced age ( Rousseau/06/05) TREATMENTS / RESULTS AND LOCATION IN MR Pericardial Window ( 06/05) Supplemental O2 ( 06/05-06/06) CDS Signature: Adriana Chowdhury RN Phone #: [phone] Date: 06/07/2020 This is a permanent part of the Medical Record [facility]
[2020-06-07] MEDS: Acetaminophen 325 MG TAB PO PRN (11:08)
[2020-06-07 11:10] VITALS: BP 106/69; TEMP 98.2
--- NOTE | 2020-06-07 16:07 | PRG ---
DATE OF SERVICE: 06/07/2020 SUBJECTIVE: Mr. Angeles is currently doing very well. No current complaints. No chest pain pressure. His pericardial drain has been removed. He had less than 50 mL draining overnight. OBJECTIVE: GENERAL: Patient is a pleasant male, who is in no acute distress. The patient appears their stated age. VITAL SIGNS: Blood pressure 120/70, pulse 80, respirations 20. NEUROLOGIC: The patient is alert and oriented x3 with no focal neurologic deficits. HEENT: Sclerae without icterus. Mouth has moist mucous membranes with normal pallor. NECK: No JVD. Carotid upstroke brisk. No bruits bilaterally. LUNGS: Clear to auscultation with unlabored respirations. BACK: No scoliosis or kyphosis. CARDIAC: Regular rate and rhythm with normal S1 and S2. No S3 or S4 noted. No significant rubs, murmurs, thrills, or gallops noted throughout the precordium. PMI is not displaced. There is no parasternal heave. ABDOMEN: Soft, nontender, nondistended. No peritoneal signs present. No hepatosplenomegaly. No abnormal striae. EXTREMITIES: 2+ femoral and 2+ dorsalis pedis pulses. No cyanosis, clubbing, or edema. SKIN: No gross abnormalities. IMPRESSION: 1. Pericardial effusion. 2. Atrial fibrillation status post ablation. RECOMMENDATIONS: Mr. Angeles is currently doing very well. It would be okay to restart anticoagulation therapy in 1 week. Plan is to follow up Mr. Angeles in the next 1 to 2 weeks in the office. Job ID: [id number]
--- NOTE | 2020-06-10 06:39 | DIS ---
DATE OF ADMISSION: 06/05/2020 DATE OF DISCHARGE: 06/07/2020 RESIDENT: Dr. Moshe Robertson. ADMITTING ATTENDING: Dr. Vale Vargas. DISCHARGE ATTENDING: Dr. Hakeem Sands. CONSULTS: 1. Dr. Chad Montes, Cardiology. 2. Dr. Ernesto Bhatti, Electrophysiology. 3. Dr. Mp Rousseau, Cardiovascular Surgery. PROCEDURES: 1. Chest x-ray performed on 06/03/2020, which demonstrated cardiomegaly, small bilateral effusions, correlate for early congestive heart failure and atherosclerosis. 2. CTA of chest and thorax performed on 06/03/2020, which demonstrated no evidence of pulmonary artery embolism at the level of segmental arteries, cardiomegaly with large pericardial effusion, bilateral pleural effusions with adjacent atelectasis. 3. Echocardiogram performed on 06/04/2020, which demonstrated left ventricular ejection fraction of 55% to 60%, pseudonormal filling pattern noted suggesting grade 2 diastolic dysfunction, left atrium cedkchbrxd-fw-[id number] dilated, mitral annular calcification present, [id number] tricuspid regurgitation, [id number] pericardial effusion with mild right atrial collapse. Largest area of the effusion is noted posteriorly. Pericardial window performed by Dr. Mp Rousseau, CV surgery, performed on 06/05/2020, which drained approximately 1.35 L of old bloody fluid from the patient's pericardial space. PRIMARY DIAGNOSIS: Acute hypoxic respiratory failure secondary to pericardial effusion. SECONDARY DIAGNOSES: 1. Normocytic anemia. 2. Obstructive sleep apnea. 3. Hypertension. 4. Heart failure with preserved ejection fraction. 5. Atrial fibrillation, on chronic anticoagulation. 6. Gout. 7. Chronic kidney disease. DISCHARGE MEDICATIONS: 1. Amiodarone 200 mg p.o. daily. 2. Atorvastatin 40 mg p.o. daily. 3. Diltiazem 120 mg p.o. daily. 4. Famotidine 20 mg p.o. daily. 5. Lisinopril 5 mg p.o. daily. 6. Magnesium 250 mg p.o. daily. 7. Paroxetine 20 mg p.o. daily. 8. Potassium chloride 10 mEq p.o. daily. 9. Allopurinol 100 mg p.o. daily. 10. Apixaban 5 mg p.o. b.i.d. to be resumed on June 12, 2020. 11. Aspirin 81 mg p.o. daily. 12. Vitamin D3 of 125 mcg p.o. daily. 13. Furosemide 40 mg q.48 hours. 14. Leota-3 fatty acid 1 capsule p.o. daily. DISCONTINUED MEDICATIONS: Allopurinol 300 mg p.o. daily. HISTORY OF PRESENT ILLNESS/HOSPITAL COURSE: The patient is a 64-year-old male with past medical history significant for heart failure with an ejection fraction noted to be 50% to 55%, hypertension, atrial fibrillation, on chronic anticoagulation, status post ablation. He states that he started having a cough 3 to 4 days prior to presentation with mild chest pain, which he thought was acid reflux. The day prior to presentation, he walked a distance of about 10 feet and felt that he was getting severely short of breath. The patient states the chest pain did not increase with activity. Symptoms resolved with rest. The patient denies noncompliance with his medication, although after further questioning, the patient is unsure of his medication regimen and has to have others to help him administer his medications daily. The patient is supposed to be on fluid restriction of 8 cups of liquid per day. However, he has been getting quite thirsty and is not sure if he has actually been following his protocol. The patient denies sick contacts or exposure to COVID. He notes that his legs seem to be more swollen than normal with the left leg more swollen than the right leg. In the emergency department, the patient was given 1 dose of IV Lasix and subsequently transferred to the floor. Multiple imaging modalities were performed, the results of which are mentioned elsewhere. Of note, the patient received a pericardial window for a discovered pericardial effusion with 1.35 L of old bloody fluid subsequently drained from this. Fluid cultures and pericardial biopsy as well as pathology report are still pending from these. The patient's condition improved greatly and he denied shortness of breath or chest pain throughout the duration of his hospitalization. The patient was evaluated by Cardiology, Electrophysiology, and Cardiovascular Surgery multiple times throughout his evaluation and they agreed with his improvement and subsequent discharge. Prior to discharge, the patient's vital signs were recorded as temperature 98.2, pulse 64 beats per minute, blood pressure 106/69, respirations 16 breaths per minute, oxygen saturation 98% on room air. LABORATORY ANALYSIS: Revealed a white blood cell count of 11.8, hemoglobin 10.5, hematocrit 34.2, platelet count 404. Chem panel revealed a sodium of 138, potassium 4.8, chloride 104, carbon dioxide 26, BUN 25, creatinine 1.46, down from a peak of 1.84, glucose 143. Hemoglobin A1c 5.5. Calcium 8.6, phosphorus 3.2, magnesium 2.1. Iron 23, total iron-binding capacity 331, transferrin 265, ferritin 534, total bilirubin 1.3, AST 26, ALT 18, alkaline phosphatase 176. Troponin less than 0.01 x3. BNP 79.2, triglycerides 75, cholesterol 106, LDL 65, HDL 26, vitamin B12 of 380, folate 460, RBC folate 1549, hematocrit 29.7. TSH 2.4166. SARS COVID swab was performed via PCR and the patient was found to be negative. DISPOSITION: Stable. DISCHARGE INSTRUCTIONS: 1. Location: Home. 2. Diet: Heart healthy with low sodium and fluid restriction of less than 8 cups of fluid per day. 3. Activity: No restrictions. 4. Followup: The patient is encouraged to follow up with his primary care provider in 1 to 2 weeks in order to discuss the most recent hospitalization. Additionally, the patient will follow up with Dr. Ernesto Bhatti, Electrophysiology, in approximately 6 weeks. Of note, the patient will also begin outpatient cardiac rehab. The patient was overall stable and was pleased with his level of care provided during his hospitalization. Job ID: [id number]
== END 2020-06-07 14:33 | disposition home or self-care (01) | DRG 270 ==
LOC: ERS 16:56 → ERHOLD 22:25 → 2NO 06-04 22:01 → OBSVTOIN 06-05 09:37
PROVIDERS: ADMIT Family Medicine; ATTEND Family Medicine
PROC: 0W9D00Z Drainage of Pericardial Cavity with Drainage Device, Open Approach (ICD-10-PCS; principal; 2020-06-05)
PROC: 02BN0ZX Excision of Pericardium, Open Approach, Diagnostic (ICD-10-PCS; 2020-06-05)
DX: I31.3 Pericardial effusion (noninflammatory) (principal); I50.33 Acute on chronic diastolic (congestive) heart failure; R65.11 Systemic inflammatory response syndrome (SIRS) of non-infectious origin with acute organ dysfunction; J96.01 Acute respiratory failure with hypoxia; N17.9 Acute kidney failure, unspecified; I13.2 Hypertensive heart and chronic kidney disease with heart failure and with stage 5 chronic kidney disease, or end stage renal disease; I48.91 Unspecified atrial fibrillation; D64.9 Anemia, unspecified; K21.9 Gastro-esophageal reflux disease without esophagitis; F41.9 Anxiety disorder, unspecified; Z20.822 Contact with and (suspected) exposure to COVID-19; N18.9 Chronic kidney disease, unspecified; E78.5 Hyperlipidemia, unspecified; E66.01 Morbid (severe) obesity due to excess calories; I34.0 Nonrheumatic mitral (valve) insufficiency; M10.9 Gout, unspecified; F32.9 Major depressive disorder, single episode, unspecified; Z79.01 Long term (current) use of anticoagulants; Z79.82 Long term (current) use of aspirin; Z79.899 Other long term (current) drug therapy; Z68.39 Body mass index [BMI] 39.0-39.9, adult; Z86.73 Personal history of transient ischemic attack (TIA), and cerebral infarction without residual deficits; Z87.442 Personal history of urinary calculi
CPT/HCPCS: 36415; 71045; 71275; 80048; 80053; 80061; 82607; 82728; 82747; 83036; 83540; 83550; 83735; 83880; 84100; 84443; 84466; 84484; 85025; 85027; 85060; 87070; 87205; 87804; 88305; 89051; 93005; 93306; 96374; G0378; J0690; J1100; J1940; J2405; J2704; J3010; Q9967; S0020; U0002

== ENCOUNTER 2020-07-05 07:40 | Day surgery (SDC) | payer MEDICARE ==
[2020-07-03 13:34] VITALS: BMI 38.8
[2020-07-05] MEDS ORDERED: PROPOFOL 20 ML ONE (10:52)
--- NOTE | 2020-07-05 14:33 | OP ---
DATE OF PROCEDURE: 07/05/2020 PROCEDURE PERFORMED: External electrical cardioversion. REASON FOR PROCEDURE: Mr. Angeles is a 64-year-old man with prior history of diastolic heart failure, persistent atrial fibrillation, and obesity, who underwent a pulmonary venous isolation procedure in the past and has maintained sinus rhythm eventually with amiodarone loading. Now, he is here with recurrence. He has been anticoagulated with apixaban for the last 3 weeks without fail. DESCRIPTION OF PROCEDURE: The patient received propofol by Anesthesia specialist. After adequate level of sedation achieved, a synchronized 100-joule shock did not, but a followup 200-joule shock converted him back to sinus rhythm. CONCLUSION: Successful cardioversion. PLAN: Continue amiodarone at least next month or 2. Continue oral anticoagulation. Consider redo PVI if frequent recurrence of atrial fibrillation is seen. Job ID: [id number]
== END 2020-07-05 11:50 | disposition home or self-care (01) ==
LOC: CCL 07:40
PROVIDERS: ATTEND Internal Medicine Cardiovascular Disease
PROC: 5A2204Z Restoration of Cardiac Rhythm, Single (ICD-10-PCS; principal; 2020-07-05)
DX: I48.4 Atypical atrial flutter (principal); I48.19 Other persistent atrial fibrillation; I11.0 Hypertensive heart disease with heart failure; I50.33 Acute on chronic diastolic (congestive) heart failure; G47.33 Obstructive sleep apnea (adult) (pediatric); E66.01 Morbid (severe) obesity due to excess calories; Z68.38 Body mass index [BMI] 38.0-38.9, adult; E78.00 Pure hypercholesterolemia, unspecified; Z79.01 Long term (current) use of anticoagulants; Z79.82 Long term (current) use of aspirin; Z79.899 Other long term (current) drug therapy
CPT/HCPCS: 92960; J2704

== ENCOUNTER 2020-07-19 22:23 | Inpatient (IN) | payer MEDICARE ==
[2020-07-19 23:04] LABS: #Basophils 0.1 thou/uL (0.0-0.2); #Eosinphils 0.1 thou/uL (0.0-0.7); #Monocytes 0.8 thou/uL (0.11-0.59); #Neutrophils 2.9 thou/uL (1.40-6.50); %Basophils 1.3 % (0.0-1.0); %Eosinophils 1.3 % (0.0-10.0); %Lymphocytes 34.9 % (21.0-51.0); %Monocytes 13.1 % (0.0-10.0); %Neutrophils 49.4 % (42.0-75.0); Hemoglobin 9.1 g/dL (14.0-18.0); Mean Corpuscular HGB CONC 30.1 g/dL (32.0-36.0); Mean Corpuscular Hemoglobin 24.5 pg (27.0-31.0); Mean Corpuscular Volume 81.4 fL (78.0-98.0); Mean Platelet Volume 8.2 fL (7.4-10.4); Platelet Count 286 thou/uL (130-400); RBC Distribution Width 16.5 % (11.5-14.5); Red Blood Cell (RBC) Count 3.72 mill/uL (4.70-6.10); White Blood Cell (WBC) Count 5.8 thou/uL (4.8-10.8)
[2020-07-19 23:24] LABS: ALT (SGPT) 19 U/L (8-55); AST (SGOT) 23 U/L (5-34); Albumin 3.3 g/dL (3.4-4.8); Alkaline Phosphatase 173 U/L (40-110); Anion Gap 12 mmol/L (10-20); BUN (Urea Nitrogen) 36 mg/dL (8.4-25.7); Bilirubin, Total 0.7 mg/dL (0.2-1.2); Calc. Creatinine Clearance 0 mL/min (70-130); Calcium 8.7 mg/dL (7.8-10.44); Carbon Dioxide 29 mmol/L (23-31); Chloride 105 mmol/L (98-107); Globulin 3.4 g/dL (2.4-3.5); Glucose 109 mg/dL (80-115); Protein, Total 6.7 g/dL (5.8-8.1); Sodium 142 mmol/L (136-145)
--- NOTE | 2020-07-20 01:15 | PDOC.HHP ---
Hospitalist HPI Lower extremity swelling History of Present Illness: The patient is a 64-year-old male past medical history significant for chronic diastolic CHF, paroxysmal atrial fibrillation (on amiodarone and Eliquis), HTN, HLD that presents to the emergency department for the above complaint. The patient reports increased swelling to his bilateral extremities over the past week. His daughter, who administers his home medications, called his production line technician, Dr. Montes, who recommended doubling his dose of Lasix this past Wednesday. The patient usually takes Lasix 40 mg daily, so he increased it to 80 mg daily. Patient reports that it did not significantly improve the swelling to his lower extremities. He denies any chest pain, heart palpitations, lightheadedness. Denies shortness of breath, cough, hemoptysis. Denies any recent fever or chills. Denies abdominal pain, nausea, vomiting, diarrhea. Denies any dysuria or hematuria. ED Course: BP: 115/74, Pulse: 70, Resp: 19, Temp: 98.4 (Oral), Pain: 3, O2 sat: 95 on (Room Air), Time: 07/19/2020 22:24. VITAL SIGNS WedJul 19, 2020 23:58 YANIRA Nava Catherine BP: 122/73, Pulse: 69, Resp: 18, Pain: 3, O2 sat: 97 on (Room Air), Time: 07/19/2020 23:58VITA. EKG normal sinus rhythm first-degree AV block Initial troponin and CXR pending BNP 1757 Creatinine 2.07 Medication administration: furosemide injection 80 mg IV Push Acknowledged 00:27 07/20/2020 Allergies/Adverse Reactions: Allergy/AdvReac Type Severity Reaction Status Date / Time No Known Drug Allergies Allergy Verified 07/03/20 13:31 Home Medications: Medication Instructions Recorded Confirmed Type Aspirin Chewable [Aspirin Chewable 81 mg PO DAILY 12/13/19 07/05/20 History Tablet] Atorvastatin Calcium [Lipitor] 40 mg PO HS 12/13/19 07/05/20 History Magnesium 250 mg PO DAILY 01/02/20 07/05/20 History Famotidine 20 mg PO DAILY 01/27/20 07/05/20 History Lisinopril 5 mg PO DAILY 01/27/20 07/05/20 History Conway-3 Fatty Acids/Fish Oil 1 cap PO DAILY 01/27/20 07/05/20 History [Conway 3 1,000 mg Softgel] Amiodarone [Cordarone] 200 mg PO DAILY 02/14/20 07/05/20 History Cholecalciferol (Vitamin D3) 125 mcg PO DAILY 02/16/20 07/05/20 History [Vitamin D3] Metoprolol Succinate 25 mg PO DAILY 02/16/20 07/05/20 History Furosemide [Lasix] 40 mg PO Q48H 06/04/20 07/05/20 History Allopurinol [Zyloprim] 100 mg PO DAILY #30 tablet 06/07/20 07/05/20 Rx Apixaban [Eliquis] 5 mg PO BID 30 Days #60 tab 06/07/20 07/05/20 Rx Potassium Chloride 10 meq PO DAILY 07/05/20 07/05/20 History Past History: PMHx: Diastolic CHF, atrial fibrillation, HTN, HLD, GERD, kidney stones, gout, anxiety and depression PSHx: Cardiac ablation 01/17, pericardial window 2020, renal stones FHx: Contributory for cardiac disease Social: Lives with family, drinks alcohol socially. No history of smoking or illicit drug use. Hospitalist HPI ROS All other systems reviewed; all pertinent +/- noted in HPI/Subj Hospitalist Exam General Appearance: NAD, awake alert. negative: ill appearing Eye: anicteric sclera ENT: normocephalic atraumatic, moist mucosa Neck: supple. negative: no JVD Heart: RRR, no murmur, no gallops, no rubs, normal peripheral pulses Respiratory: CTAB, no wheezes, no rales, no ronchi, no tachypnea Gastrointestinal: soft, non-tender, normal bowel sounds, no guarding, no rigidity Extremities: no cyanosis Extremities - other findings: 4+ pitting edema bilaterally Skin: no rashes Neurological: no focal deficits. negative: speech deficit Musculoskeletal: normal tone, normal strength Psychiatric: normal affect, A&O x 3 Hospitalist Results Result Diagrams: 07/19/20 22:54 07/19/20 22:54 Lab results: Laboratory Last Values WBC 5.8 thou/uL (4.8-10.8) 07/19/20 22:54 RBC 3.72 mill/uL (4.70-6.10) L 07/19/20 22:54 Hgb 9.1 g/dL (14.0-18.0) L 07/19/20 22:54 Hct 30.2 % (42.0-52.0) L 07/19/20 22:54 MCV 81.4 fL (78.0-98.0) 07/19/20 22:54 MCH 24.5 pg (27.0-31.0) L 07/19/20 22:54 MCHC 30.1 g/dL (32.0-36.0) L 07/19/20 22:54 RDW 16.5 % (11.5-14.5) H 07/19/20 22:54 Plt Count 286 thou/uL (130-400) 07/19/20 22:54 MPV 8.2 fL (7.4-10.4) 07/19/20 22:54 Neutrophils % 49.4 % (42.0-75.0) 07/19/20 22:54 Lymphocytes % 34.9 % (21.0-51.0) 07/19/20 22:54 Monocytes % 13.1 % (0.0-10.0) H 07/19/20 22:54 Eosinophils % 1.3 % (0.0-10.0) 07/19/20 22:54 Basophils % 1.3 % (0.0-1.0) H 07/19/20 22:54 Neutrophils # 2.9 thou/uL (1.40-6.50) 07/19/20 22:54 Lymphocytes # 2.0 thou/uL (1.20-3.40) 07/19/20 22:54 Monocytes # 0.8 thou/uL (0.11-0.59) H 07/19/20 22:54 Eosinophils # 0.1 thou/uL (0.0-0.7) 07/19/20 22:54 Basophils # 0.1 thou/uL (0.0-0.2) 07/19/20 22:54 Sodium 142 mmol/L (136-145) 07/19/20 22:54 Potassium 4.0 mmol/L (3.5-5.1) 07/19/20 22:54 Chloride 105 mmol/L (98-107) 07/19/20 22:54 Carbon Dioxide 29 mmol/L (23-31) 07/19/20 22:54 Anion Gap 12 mmol/L (10-20) 07/19/20 22:54 BUN 36 mg/dL (8.4-25.7) H 07/19/20 22:54 Creatinine 2.07 mg/dL (0.7-1.3) H 07/19/20 22:54 Estimated GFR (MDRD) 32 07/19/20 22:54 Glucose 109 mg/dL (80-115) 07/19/20 22:54 Calcium 8.7 mg/dL (7.8-10.44) 07/19/20 22:54 Total Bilirubin 0.7 mg/dL (0.2-1.2) 07/19/20 22:54 AST 23 U/L (5-34) 07/19/20 22:54 ALT 19 U/L (8-55) 07/19/20 22:54 Alkaline Phosphatase 173 U/L (40-110) H 07/19/20 22:54 B-Natriuretic Peptide 1757.0 pg/mL (0-100) H 07/19/20 22:54 Serum Total Protein 6.7 g/dL (5.8-8.1) 07/19/20 22:54 Albumin 3.3 g/dL (3.4-4.8) L 07/19/20 22:54 Globulin 3.4 g/dL (2.4-3.5) 07/19/20 22:54 Albumin/Globulin Ratio 1.0 g/dL (1.2-2.2) L 07/19/20 22:54 EKG Status: report reviewed by me Additional Comments: Sinus rhythm, first-degree AV block, no ST elevations Chest x-ray Status: pending Hospitalist H&P A/P (1) Acute exacerbation of congestive heart failure Code(s): I50.9 - HEART FAILURE, UNSPECIFIED Status: Acute (2) OSMANI (acute kidney injury) Code(s): N17.9 - ACUTE KIDNEY FAILURE, UNSPECIFIED Status: Acute (3) Paroxysmal atrial fibrillation Code(s): I48.0 - PAROXYSMAL ATRIAL FIBRILLATION Status: Chronic (4) HTN (hypertension) Code(s): I10 - ESSENTIAL (PRIMARY) HYPERTENSION Status: Chronic (5) HLD (hyperlipidemia) Code(s): E78.5 - HYPERLIPIDEMIA, UNSPECIFIED Status: Chronic (6) GERD (gastroesophageal reflux disease) Code(s): K21.9 - GASTRO-ESOPHAGEAL REFLUX DISEASE WITHOUT ESOPHAGITIS Status: Chronic (7) Gout Code(s): M10.9 - GOUT, UNSPECIFIED Status: Chronic (8) Anxiety and depression Code(s): F41.9 - ANXIETY DISORDER, UNSPECIFIED; F32.9 - MAJOR DEPRESSIVE DISORDER, SINGLE EPISODE, UNSPECIFIED Status: Chronic Plan: Patient with chronic diastolic CHF paroxysmal atrial fibrillation presents to the emergency department for lower extremity swelling for several days. Presented normal vital signs. EKG normal sinus rhythm first-degree AV block. BNP 1757, troponin CXR pending. #Acute exacerbation of congestive heart failure EKG NSR, first-degree AV block. Initial troponin and CXR pending Takes Lasix 40 mg p.o. daily at home. Orders for Lasix 80 mg IVP in ER. Continue Lasix 80 mg twice daily. Strict EDWARDO's, daily weights, fluid restriction, low-sodium. Consult cardiac rehab Consult cardiology Recent echo 06/04/2020 EF 55 to 60% grade 2 diastolic dysfunction Left atrium moderate to severe dilated Mild to moderate TR Pericardial effusionunderwent pericardial window Continue home dose BB, JELANI inhibitor, KCl. #OSMANI Likely prerenal. Presented creatinine 2.07, was 1.78. Continue diuresis. Check renal ultrasound to rule out obstruction. Hold home dose allopurinol. We will continue home dose lisinopril. #Paroxysmal atrial fibrillation Presented normal sinus rhythm first-degree AV block Restart home dose amiodarone and Eliquis. #HTN Presented normotensive. Restart home dose metoprolol and lisinopril. #HLD Restart home dose fish oil and Lipitor. #GERD Restart home dose Pepcid #Gout Hold home dose allopurinol due to problem #2 #Anxiety depression Denies SI/HI Takes no medications for this. No SCDs. No pharmacological DVT prophylaxis. Pepcid for GI prophylaxis. CODE STATUS full code. Discussed the case with attending physician, Dr. Samuel, who agrees with plan of care.
[2020-07-20] MEDS ORDERED: Calcium Carbonate 500 MG ChewTAB PO PRN (01:17)
[2020-07-20] MEDS ORDERED: Acetaminophen 325 MG TAB PO PRN (01:17)
[2020-07-20] MEDS ORDERED: Ondansetron ODT 4 MG TAB PO PRN (01:17)
[2020-07-20] MEDS ORDERED: Furosemide 40 MG/4 ML VIAL ONE (02:07)
[2020-07-20] MEDS ORDERED: Furosemide 100 MG/10 ML VIAL ONE ×2 (06:18→15:54)
[2020-07-20] MEDS: Furosemide 40 MG/4 ML VIAL SLOW IVP SCH ×2 (06:20→14:44)
[2020-07-20 07:10] LABS: Troponin I 0.032 ng/mL (< 0.028)
--- NOTE | 2020-07-20 07:40 | RAD ---
XR Chest 1 View Portable History: Swelling. Pain and edema Comparison: Radiograph June 03, 2020 Findings: Heart size markedly enlarged. Moderate pleural effusions. Mild pulmonary edema. No pneumoth orax. No acute osseous abnormality. Impression: Moderate decompensated congestive heart failure.
--- NOTE | 2020-07-20 08:03 | ULT ---
US Renal Bilateral STANDARD History: Acute kidney injury Comparison: Renal ultrasound 2012 Findings: Real-time grayscale and color evaluation of the kidneys and urinary bladder was performed. Right kidney measures 11 x 5 x 4.3 cm exophytic interpolar 2.7 cm cyst as well as the superior pole 1 .8 cm cyst. No mass or hydronephrosis. Left kidney measures 11.4 x 5.1 x 5 cm without mass, hydronephrosis or abnormal calcifications. No ur inary bladder thickening. Impression: 1. No evidence for obstructive uropathy. 2. Small volume perihepatic ascites.
[2020-07-20] MEDS ORDERED: Lisinopril 5 MG TAB PO SCH (09:00)
[2020-07-20] MEDS ORDERED: Famotidine 20 MG TAB PO SCH (09:00)
[2020-07-20] MEDS ORDERED: Potassium Chloride 20 MEQ TAB ONE (09:08)
[2020-07-20] MEDS ORDERED: Metoprolol Tartrate 25 MG TAB ONE (09:08)
[2020-07-20] MEDS ORDERED: Aspirin Chewable 81 MG TAB ONE (09:08)
[2020-07-20 09:57] LABS: SARS-CoV-2 PCR by NAA Not Detected (NotDetected)
[2020-07-20] MEDS: Amiodarone 200 MG TAB PO SCH (10:12)
[2020-07-20] MEDS: Apixaban 5 MG TAB PO SCH ×2 (10:13→20:47)
[2020-07-20] MEDS: Aspirin Chewable 81 MG TAB PO SCH (10:13)
[2020-07-20] MEDS: Magnesium Oxide 250 MG TAB PO SCH (10:14)
[2020-07-20] MEDS: Potassium Chloride 10 MEQ TAB PO SCH (10:14)
--- NOTE | 2020-07-20 13:31 | CON ---
DATE OF CONSULTATION: REASON FOR CONSULTATION: Lower extremity edema and shortness of breath. HISTORY OF PRESENT ILLNESS: Bridgette is a 64-year-old gentleman, who I have seen about in the past. He has a history of atrial fibrillation, status post ablation. He was previously in atrial fibrillation after ablation, but has now gone back into sinus rhythm. He appears fairly stable. He states the main reason for the ER visit with lower extremity edema. He became concerned enough that he proceed to the emergency room. He has had some shortness of breath, but not felt to be significant. HOME MEDICATIONS: Include: 1. Famotidine. 2. Lasix. 3. Allopurinol. 4. Cardizem. 5. Fish oil. 6. Amiodarone. 7. Magnesium. 8. Potassium. 9. Calcitriol. 10. Eliquis. 11. Lisinopril. 12. Aspirin. 13. Paroxetine. 14. Vitamin D. 15. Metoprolol. 16. Atorvastatin. 17. Melatonin. 18. Lasix. PAST HISTORY: Hyperlipidemia, hypertension, nephrolithiasis, paroxysmal atrial fibrillation, obesity, gout, acid reflux, depression, renal insufficiency, diastolic dysfunction, sleep apnea, pericardial effusion. PAST SURGICAL HISTORY: Atrial flutter ablation in December of 2019, pericardial window. FAMILY HISTORY: Negative for CAD. SOCIAL HISTORY: No current tobacco or alcohol use. REVIEW OF SYSTEMS: A 10-point review of systems is reviewed as above, otherwise negative. PHYSICAL EXAMINATION: VITAL SIGNS: Blood pressure , pulse 67, temp afebrile. GENERAL: Patient is a pleasant gentleman, who is in no acute distress. The patient appears their stated age. NEUROLOGIC: The patient is alert and oriented x3 with no focal neurologic deficits. HEENT: Sclerae without icterus. Mouth has moist mucous membranes with normal pallor. NECK: No JVD. Carotid upstroke brisk. No bruits bilaterally. LUNGS: Crackles noted bilaterally. BACK: No scoliosis or kyphosis. CARDIAC: Regular rate and rhythm with normal S1 and S2. No S3 or S4 noted. No significant rubs, murmurs, thrills, or gallops noted throughout the precordium. PMI is not displaced. There is no parasternal heave. ABDOMEN: Soft, nontender, nondistended. No peritoneal signs present. No hepatosplenomegaly. No abnormal striae. EXTREMITIES: 2+ pitting edema. SKIN: No gross abnormalities. PERTINENT LABORATORY DATA: Serology negative for COVID. BNP of 1757. Peak troponin 0.032. IMPRESSION: 1. Acute on chronic diastolic heart failure. 2. Atrial fibrillation. 3. Lower extremity edema. RECOMMENDATIONS: The patient is currently on amiodarone low dose in addition to Eliquis, aspirin, and atorvastatin. IV Lasix has been started. We anticipate IV Lasix over the next 24 hours. Continue lisinopril. not indicated. Job ID: [id number]
--- NOTE | 2020-07-20 14:06 | PDOC.HOSPP ---
- Subjective Encounter Date: 07/20/20 Encounter Time: 11:55 Subjective: Patient seen this morning he has about 2+ pitting edema. He is quite anxious to go home. Cardiology evaluation pending he follows with . He had an echo done recently in June 04 showing EF of 55%. - Objective Vital Signs & Weight: Vital Signs (12 hours) Pulse BP 07/20/20 10:13 67 121/85 Result Diagrams: 07/19/20 22:54 07/19/20 22:54 Hospitalist ROS - Medication Medications: Active Medications Generic Name Dose Route Start Last Admin Trade Name Freq PRN Reason Stop Dose Admin Amiodarone HCl 200 mg 07/20/20 09:00 07/20/20 10:12 Amiodarone 200 Mg Tab PO 200 mg DAILY DENNIS Administration Apixaban 5 mg 07/20/20 09:00 07/20/20 10:13 Apixaban 5 Mg Tab PO 5 mg BID DENNIS Administration Aspirin 81 mg 07/20/20 09:00 07/20/20 10:13 Aspirin Chewable 81 Mg Tab PO 81 mg DAILY DENNIS Administration Furosemide 80 mg 07/20/20 06:00 07/20/20 06:20 Furosemide 40 Mg/4 Ml Vial SLOW IVP 80 mg 0600,1400 DENNIS Administration Lisinopril 5 mg 07/20/20 09:00 07/20/20 10:13 Lisinopril 5 Mg Tab PO 5 mg DAILY DENNIS Administration Magnesium Oxide 250 mg 07/20/20 09:00 07/20/20 10:14 Magnesium Oxide 250 Mg Tab PO 250 mg DAILY DENNIS Administration Metoprolol Succinate 25 mg 07/20/20 09:00 07/20/20 10:14 Metoprolol Succinate Xl 25 Mg Tab PO 25 mg DAILY DENNIS Administration Potassium Chloride 10 meq 07/20/20 09:00 07/20/20 10:14 Potassium Chloride 10 Meq Tab PO 10 meq DAILY DENNIS Administration Hospitalist Exam Vitals: Vital Signs (12 hours) Pulse BP 07/20/20 10:13 67 121/85 General Appearance: NAD, awake alert Eye: PERRL ENT: normocephalic atraumatic Neck: supple Heart: RRR, normal peripheral pulses Respiratory: CTAB, normal chest expansion Gastrointestinal: soft, normal bowel sounds Neurological: cranial nerve grossly intact, no focal deficits Psychiatric: normal affect, normal behavior, A&O x 3 Hosp A/P - Plan Acute exacerbation of congestive heart failure Code(s): I50.9 - HEART FAILURE, UNSPECIFIED Status: Acute (2) OSMANI (acute kidney injury) Code(s): N17.9 - ACUTE KIDNEY FAILURE, UNSPECIFIED Status: Acute (3) Paroxysmal atrial fibrillation Code(s): I48.0 - PAROXYSMAL ATRIAL FIBRILLATION Status: Chronic (4) HTN (hypertension) Code(s): I10 - ESSENTIAL (PRIMARY) HYPERTENSION Status: Chronic (5) HLD (hyperlipidemia) Code(s): E78.5 - HYPERLIPIDEMIA, UNSPECIFIED Status: Chronic (6) GERD (gastroesophageal reflux disease) Code(s): K21.9 - GASTRO-ESOPHAGEAL REFLUX DISEASE WITHOUT ESOPHAGITIS Status: Chronic (7) Gout Code(s): M10.9 - GOUT, UNSPECIFIED Status: Chronic (8) Anxiety and depression Code(s): F41.9 - ANXIETY DISORDER, UNSPECIFIED; F32.9 - MAJOR DEPRESSIVE DISORDER, SINGLE EPISODE, UNSPECIFIED Status: Chronic Plan: Patient with chronic diastolic CHF paroxysmal atrial fibrillation presents to the emergency department for lower extremity swelling for several days. Presented normal vital signs. EKG normal sinus rhythm first-degree AV block. BNP 1757, troponin CXR pending. #Acute exacerbation of congestive heart failure EKG NSR, first-degree AV block. Lasix IV twice daily Strict EDWARDO's, daily weights, fluid restriction, low-sodium. Consulted cardiac rehab Consulted cardiology Recent echo 06/04/2020 EF 55 to 60% grade 2 diastolic dysfunction Left atrium moderate to severe dilated Mild to moderate TR Pericardial effusionunderwent pericardial window #OSMANI Likely prerenal. Presented creatinine 2.07, was 1.78. Continue diuresis. Check renal ultrasound--- no obstructive uropathy Hold home dose allopurinol. We will continue home dose lisinopril. #Paroxysmal atrial fibrillation -normal sinus rhythm first-degree AV block Restart home dose amiodarone and Eliquis. #HTN Presented normotensive. Restart home dose metoprolol and lisinopril. #HLD Restart home dose fish oil and Lipitor. #GERD Restart home dose Pepcid #Gout Hold home dose allopurinol due to problem #2 Cardiology evaluation pending he follows with . He had an echo done recently in June 04 showing EF of 55%. -Starting him on IV diuresis follow with the output as well as weigh daily.
[2020-07-20 15:14] LABS: Bacteria/HPF None Seen HPF (None Seen); Bilirubin Negative (Negative); Blood, Urine Negative (Negative); Clarity Clear (Clear); Glucose, Urine (Dipstick) Normal (Negative); Ketone, Urine Negative (Negative); Leukocyte Negative Leu/uL (Negative); Nitrite Negative (Negative); Protein, Urine (Dipstick) Negative (Neg-Trace); RBC/HPF 0-3 HPF (0-3); Specific Gravity, Urine 1.007 (1.002-1.036); Squamous Epithelial None Seen HPF (0-3); Urobilinogen Normal mg/dL (Less than 2); WBC/HPF 0-3 HPF (0-3)
[2020-07-20 20:21] VITALS: BMI 39.1
[2020-07-20] MEDS: Atorvastatin Calcium 40 MG TAB PO SCH (20:47)
[2020-07-21] MEDS: Furosemide 40 MG/4 ML VIAL SLOW IVP SCH ×2 (05:00→14:07)
[2020-07-21] MEDS: Aspirin Chewable 81 MG TAB PO SCH (08:49)
[2020-07-21] MEDS: Potassium Chloride 10 MEQ TAB PO SCH (08:49)
[2020-07-21] MEDS: Apixaban 5 MG TAB PO SCH ×2 (08:49→20:02)
[2020-07-21] MEDS: Magnesium Oxide 250 MG TAB PO SCH (08:49)
[2020-07-21] MEDS: Cholecalciferol 1,000 UNITS (25 MCG) TAB PO SCH (08:51)
[2020-07-21] MEDS: Amiodarone 200 MG TAB PO SCH (08:51)
[2020-07-21] MEDS ORDERED: Metolazone 5 MG TAB PO SCH (11:00)
[2020-07-21 11:36] LABS: Anion Gap 12 mmol/L (10-20); BUN (Urea Nitrogen) 35 mg/dL (8.4-25.7); Calc. Creatinine Clearance 57 mL/min (70-130); Calcium 9.6 mg/dL (7.8-10.44); Carbon Dioxide 37 mmol/L (23-31); Chloride 95 mmol/L (98-107); Glucose 116 mg/dL (80-115); Potassium 3.2 mmol/L (3.5-5.1); Sodium 141 mmol/L (136-145)
--- NOTE | 2020-07-21 12:47 | PDOC.CPN ---
- Subjective Date: 07/21/20 Time: 10:45 Interval history: No complaints. Patient is wanting to be discharged. Says edema is better - Review of Systems General: denies: fever/chills, weight/appetite/sleep changes, night sweats, fatigue Respiratory: denies: cough, congestion, shortness of breath, exercise intolerance Cardiovascular: reports: edema. denies: chest pain, palpitation, paroxysmal nocturnal dyspnea, orthopnea Gastrointestinal: denies: nausea, vomiting, diarrhea, constipation, abd pain, GI bleeding Musculoskeletal: denies: pain, tenderness, stiffness, swelling, arthritis/arthralgias Neurological: denies: numbness, syncope, seizure, weakness - Objective Allergies/Adverse Reactions: Allergies Allergy/AdvReac Type Severity Reaction Status Date / Time No Known Drug Allergies Allergy Verified 07/20/20 20:19 Visit Medications: Current Medications Acetaminophen (Acetaminophen 325 Mg Tab) 650 mg PO Q4H PRN PRN Reason: Headache/Fever/Mild Pain (1-3) Amiodarone HCl (Amiodarone 200 Mg Tab) 200 mg PO DAILY [facility] Last Admin: 07/21/20 08:51 Dose: 200 mg Documented by: Apixaban (Apixaban 5 Mg Tab) 5 mg PO BID [facility] Last Admin: 07/21/20 08:49 Dose: 5 mg Documented by: Aspirin (Aspirin Chewable 81 Mg Tab) 81 mg PO DAILY [facility] Last Admin: 07/21/20 08:49 Dose: 81 mg Documented by: Atorvastatin Calcium (Atorvastatin Calcium 40 Mg Tab) 40 mg PO HS [facility] Last Admin: 07/20/20 20:47 Dose: 40 mg Documented by: Calcium Carbonate (Calcium Carbonate 500 Mg Chewtab) 1,000 mg PO Q4H PRN PRN Reason: Heartburn or Indigestion Cholecalciferol (Cholecalciferol 1,000 Units (25 Mcg) Tab) 5,000 units PO DAILY [facility] Last Admin: 07/21/20 08:51 Dose: 5,000 units Documented by: Furosemide (Furosemide 40 Mg/4 Ml Vial) 80 mg SLOW IVP 0600,1400 [facility] Last Admin: 07/21/20 05:00 Dose: 80 mg Documented by: Magnesium Oxide (Magnesium Oxide 250 Mg Tab) 250 mg PO DAILY [facility] Last Admin: 07/21/20 08:49 Dose: 250 mg Documented by: Metolazone (Metolazone 5 Mg Tab) 5 mg PO NOW [facility] Stop: 07/21/20 13:00 Metoprolol Succinate (Metoprolol Succinate Xl 25 Mg Tab) 25 mg PO DAILY [facility] Last Admin: 07/21/20 08:49 Dose: 25 mg Documented by: Ondansetron HCl (Ondansetron Odt 4 Mg Tab) 4 mg PO Q6H PRN PRN Reason: Nausea/Vomiting Potassium Chloride (Potassium Chloride 10 Meq Tab) 10 meq PO DAILY [facility] Last Admin: 07/21/20 08:49 Dose: 10 meq Documented by: Sodium Chloride (Flush - Normal Saline 10 Ml Syringe) 10 ml IVF PRN PRN PRN Reason: Saline Flush Vital Signs & Weight: Vital Signs Temp Pulse Resp BP BP Pulse Ox 07/21/20 11:40 97.8 F 62 17 109/63 100 07/21/20 08:41 97.5 F L 64 18 118/62 98 07/21/20 04:54 67 127/66 99 07/21/20 04:00 97.5 F L 68 20 123/65 99 Weight 242 lb 14.4 oz - Physical Exam General: alert & oriented x3, appears well, no apparent distress HEENT: mucus membranes moist Neck: supple neck Cardiac: regular rate and rhythm Lungs: normal breath sounds, no wheeze, rales, rhonchi Neuro: grossly intact Abdomen: soft, distended (mild distention) Extremities: 1+ LE edema Musculoskeletal: no pain - Labs Result Diagrams: 07/19/20 22:54 07/21/20 11:04 Troponin/CKMB Troponin I 0.032 ng/mL (< 0.028) H 07/20/20 06:36 - Assessment/Plan Assessment/Plan: 1. Acute on chronic diastolic CHF 2. Persistent AF s/p recent PVI 3. CKD Doing well after IV lasix. Will recheck labs. Consider zaroxolyn. Patient is requesting discharge tomorrow. I feel this is reasonable.
--- NOTE | 2020-07-21 12:53 | PDOC.HOSPP ---
- Subjective Encounter Date: 07/21/20 Encounter Time: 10:45 Subjective: Patient looks good. He prefers to go home today as he has quite a bit of things to do at home. - Objective Vital Signs & Weight: Vital Signs (12 hours) Temp Pulse Resp BP BP Pulse Ox 07/21/20 11:40 97.8 F 62 17 109/63 100 07/21/20 08:41 97.5 F L 64 18 118/62 98 07/21/20 04:54 67 127/66 99 07/21/20 04:00 97.5 F L 68 20 123/65 99 Weight Weight 242 lb 14.4 oz I&O: 07/20/20 07/21/20 07/22/20 06:59 06:59 06:59 Intake Total 60 Output Total 2200 1500 Balance -2140 -1500 Result Diagrams: 07/19/20 22:54 07/21/20 11:04 Hospitalist ROS - Medication Medications: Active Medications Generic Name Dose Route Start Last Admin Trade Name Freq PRN Reason Stop Dose Admin Amiodarone HCl 200 mg 07/20/20 09:00 07/21/20 08:51 Amiodarone 200 Mg Tab PO 200 mg DAILY DENNIS Administration Apixaban 5 mg 07/20/20 09:00 07/21/20 08:49 Apixaban 5 Mg Tab PO 5 mg BID DENNIS Administration Aspirin 81 mg 07/20/20 09:00 07/21/20 08:49 Aspirin Chewable 81 Mg Tab PO 81 mg DAILY DENNIS Administration Atorvastatin Calcium 40 mg 07/20/20 21:00 07/20/20 20:47 Atorvastatin Calcium 40 Mg Tab PO 40 mg HS DENNIS Administration Cholecalciferol 5,000 units 07/21/20 09:00 07/21/20 08:51 Cholecalciferol 1,000 Units (25 Mcg) Tab PO 5,000 units DAILY DENNIS Administration Furosemide 80 mg 07/20/20 06:00 07/21/20 05:00 Furosemide 40 Mg/4 Ml Vial SLOW IVP 80 mg 0600,1400 DENNIS Administration Magnesium Oxide 250 mg 07/20/20 09:00 07/21/20 08:49 Magnesium Oxide 250 Mg Tab PO 250 mg DAILY DENNIS Administration Metoprolol Succinate 25 mg 07/21/20 09:00 07/21/20 08:49 Metoprolol Succinate Xl 25 Mg Tab PO 25 mg DAILY DENNIS Administration Potassium Chloride 10 meq 07/20/20 09:00 07/21/20 08:49 Potassium Chloride 10 Meq Tab PO 10 meq DAILY DENNIS Administration Hospitalist Exam Vitals: Vital Signs (12 hours) Temp Pulse Resp BP BP Pulse Ox 07/21/20 11:40 97.8 F 62 17 109/63 100 07/21/20 08:41 97.5 F L 64 18 118/62 98 07/21/20 04:54 67 127/66 99 07/21/20 04:00 97.5 F L 68 20 123/65 99 Weight Weight 242 lb 14.4 oz General Appearance: awake alert Eye: PERRL ENT: normocephalic atraumatic Heart: RRR Respiratory: CTAB, normal chest expansion Gastrointestinal: soft, normal bowel sounds Extremities: 1+ LE edema Neurological: no focal deficits Psychiatric: A&O x 3 Hosp A/P - Plan Acute exacerbation of congestive heart failure Code(s): I50.9 - HEART FAILURE, UNSPECIFIED Status: Acute (2) OSMANI (acute kidney injury) Code(s): N17.9 - ACUTE KIDNEY FAILURE, UNSPECIFIED Status: Acute (3) Paroxysmal atrial fibrillation Code(s): I48.0 - PAROXYSMAL ATRIAL FIBRILLATION Status: Chronic (4) HTN (hypertension) Code(s): I10 - ESSENTIAL (PRIMARY) HYPERTENSION Status: Chronic (5) HLD (hyperlipidemia) Code(s): E78.5 - HYPERLIPIDEMIA, UNSPECIFIED Status: Chronic (6) GERD (gastroesophageal reflux disease) Code(s): K21.9 - GASTRO-ESOPHAGEAL REFLUX DISEASE WITHOUT ESOPHAGITIS Status: Chronic (7) Gout Code(s): M10.9 - GOUT, UNSPECIFIED Status: Chronic (8) Anxiety and depression Code(s): F41.9 - ANXIETY DISORDER, UNSPECIFIED; F32.9 - MAJOR DEPRESSIVE DISORDER, SINGLE EPISODE, UNSPECIFIED Status: Chronic Plan: Patient with chronic diastolic CHF paroxysmal atrial fibrillation presents to the emergency department for lower extremity swelling for several days. Presented normal vital signs. EKG normal sinus rhythm first-degree AV block. BNP 1757, troponin CXR pending. #Acute exacerbation of congestive heart failure EKG NSR, first-degree AV block. Lasix IV twice daily Strict EDWARDO's, daily weights, fluid restriction, low-sodium. Consulted cardiac rehab Consulted cardiology Recent echo 06/04/2020 EF 55 to 60% grade 2 diastolic dysfunction Left atrium moderate to severe dilated Mild to moderate TR Pericardial effusionunderwent pericardial window #OSMANI Likely prerenal. Presented creatinine 2.07, was 1.78. Continue diuresis. Check renal ultrasound--- no obstructive uropathy Hold home dose allopurinol. We will continue home dose lisinopril. #Paroxysmal atrial fibrillation -normal sinus rhythm first-degree AV block Restart home dose amiodarone and Eliquis. #HTN Presented normotensive. Restart home dose metoprolol and lisinopril. #HLD Restart home dose fish oil and Lipitor. #GERD Restart home dose Pepcid #Gout Hold home dose allopurinol due to problem #2 Cardiology evaluation pending he follows with . He had an echo done recently in June 04 showing EF of 55%. -Starting him on IV diuresis follow with the output as well as weigh daily. possible dc tomorrow.
[2020-07-21] MEDS ORDERED: Potassium Chloride 20 MEQ TAB PO SCH (13:00)
[2020-07-21] MEDS: Atorvastatin Calcium 40 MG TAB PO SCH (20:02)
[2020-07-22] MEDS: Furosemide 40 MG/4 ML VIAL SLOW IVP SCH (05:52)
[2020-07-22] MEDS: Cholecalciferol 1,000 UNITS (25 MCG) TAB PO SCH (09:21)
[2020-07-22] MEDS: Aspirin Chewable 81 MG TAB PO SCH (09:21)
[2020-07-22] MEDS: Apixaban 5 MG TAB PO SCH (09:21)
[2020-07-22] MEDS: Magnesium Oxide 250 MG TAB PO SCH (09:21)
[2020-07-22] MEDS: Amiodarone 200 MG TAB PO SCH (09:22)
[2020-07-22] MEDS: Potassium Chloride 10 MEQ TAB PO SCH (09:22)
--- NOTE | 2020-07-22 11:45 | PDOC.CPN ---
- Subjective Date: 07/22/20 Time: 11:43 Interval history: Patient feels great. no complaints. No overnight events Tele stable. - Objective Allergies/Adverse Reactions: Allergies Allergy/AdvReac Type Severity Reaction Status Date / Time No Known Drug Allergies Allergy Verified 07/20/20 20:19 Visit Medications: Current Medications Acetaminophen (Acetaminophen 325 Mg Tab) 650 mg PO Q4H PRN PRN Reason: Headache/Fever/Mild Pain (1-3) Amiodarone HCl (Amiodarone 200 Mg Tab) 200 mg PO DAILY [facility] Last Admin: 07/22/20 09:22 Dose: 200 mg Documented by: Apixaban (Apixaban 5 Mg Tab) 5 mg PO BID [facility] Last Admin: 07/22/20 09:21 Dose: 5 mg Documented by: Aspirin (Aspirin Chewable 81 Mg Tab) 81 mg PO DAILY [facility] Last Admin: 07/22/20 09:21 Dose: 81 mg Documented by: Atorvastatin Calcium (Atorvastatin Calcium 40 Mg Tab) 40 mg PO HS [facility] Last Admin: 07/21/20 20:02 Dose: 40 mg Documented by: Calcium Carbonate (Calcium Carbonate 500 Mg Chewtab) 1,000 mg PO Q4H PRN PRN Reason: Heartburn or Indigestion Cholecalciferol (Cholecalciferol 1,000 Units (25 Mcg) Tab) 5,000 units PO DAILY [facility] Last Admin: 07/22/20 09:21 Dose: 5,000 units Documented by: Furosemide (Furosemide 40 Mg/4 Ml Vial) 80 mg SLOW IVP 0600,1400 [facility] Last Admin: 07/22/20 05:52 Dose: 80 mg Documented by: Magnesium Oxide (Magnesium Oxide 250 Mg Tab) 250 mg PO DAILY [facility] Last Admin: 07/22/20 09:21 Dose: 250 mg Documented by: Metoprolol Succinate (Metoprolol Succinate Xl 25 Mg Tab) 25 mg PO DAILY [facility] Last Admin: 07/22/20 09:22 Dose: 25 mg Documented by: Ondansetron HCl (Ondansetron Odt 4 Mg Tab) 4 mg PO Q6H PRN PRN Reason: Nausea/Vomiting Potassium Chloride (Potassium Chloride 10 Meq Tab) 10 meq PO DAILY [facility] Last Admin: 07/22/20 09:22 Dose: 10 meq Documented by: Sodium Chloride (Flush - Normal Saline 10 Ml Syringe) 10 ml IVF PRN PRN PRN Reason: Saline Flush Vital Signs & Weight: Vital Signs Temp Pulse Pulse Pulse Resp BP BP 07/22/20 10:26 76 70 123/73 115/72 07/22/20 07:40 07/22/20 07:39 98.0 F 71 16 07/22/20 04:00 98.1 F 70 16 BP Pulse Ox Pulse Ox Pulse Ox 07/22/20 10:26 98 97 07/22/20 07:40 96 07/22/20 07:39 119/74 96 07/22/20 04:00 124/66 95 Weight 235 lb 1.6 oz - Physical Exam General: alert & oriented x3, appears well, no apparent distress HEENT: mucus membranes moist Extremities: 1+ LE edema Skin: clear Musculoskeletal: no pain - Labs Result Diagrams: 07/19/20 22:54 07/21/20 11:04 Troponin/CKMB Troponin I 0.032 ng/mL (< 0.028) H 07/20/20 06:36 - Assessment/Plan Assessment/Plan: 1. Acute on chronic diastolic CHF 2. Persistent AF s/p recent PVI 3. CKD Improved overall. Ok for discharge. F/U in 2 weeks as outpatient. Patient has PRN zaroxolyn to use at home.
[2020-07-22 11:46] VITALS: BP 116/69; TEMP 98.1
--- NOTE | 2020-07-22 12:42 | PDOC.DS.DS ---
Provider Date of Admission: 07/20/20 00:53 Admitting Provider: Darien Samuel MD Primary Care Physician: OUT OF TOWN Course Hospital Course: Patient with chronic diastolic CHF paroxysmal atrial fibrillation presents to the emergency department for lower extremity swelling for several days. Presented normal vital signs. EKG normal sinus rhythm first-degree AV block. BNP 1757, troponin neg. Acute exacerbation of congestive heart failure Code(s): I50.9 - HEART FAILURE, UNSPECIFIED Status: Acute (2) OSMANI (acute kidney injury) Code(s): N17.9 - ACUTE KIDNEY FAILURE, UNSPECIFIED Status: Acute (3) Paroxysmal atrial fibrillation Code(s): I48.0 - PAROXYSMAL ATRIAL FIBRILLATION Status: Chronic (4) HTN (hypertension) Code(s): I10 - ESSENTIAL (PRIMARY) HYPERTENSION Status: Chronic (5) HLD (hyperlipidemia) Code(s): E78.5 - HYPERLIPIDEMIA, UNSPECIFIED Status: Chronic (6) GERD (gastroesophageal reflux disease) Code(s): K21.9 - GASTRO-ESOPHAGEAL REFLUX DISEASE WITHOUT ESOPHAGITIS Status: Chronic (7) Gout Code(s): M10.9 - GOUT, UNSPECIFIED Status: Chronic (8) Anxiety and depression Code(s): F41.9 - ANXIETY DISORDER, UNSPECIFIED; F32.9 - MAJOR DEPRESSIVE DISORDER, SINGLE EPISODE, UNSPECIFIED Status: Chronic #Acute exacerbation of congestive heart failure EKG NSR, first-degree AV block. diuresed with Lasix IV twice daily Recent echo 06/04/2020 EF 55 to 60% grade 2 diastolic dysfunction Left atrium moderate to severe dilated Mild to moderate TR Pericardial effusionunderwent pericardial window #OSMANI-prerenal. Presented creatinine 2.07, was 1.78. renal ultrasound--- no obstructive uropathy #Paroxysmal atrial fibrillation -normal sinus rhythm first-degree AV block Restarted home dose amiodarone and Eliquis. #HTN Presented normotensive. Restarted home dose metoprolol and lisinopril. He is euvolemic on the day of discharge and no shortness of breath or chest discomfort with ambulation. He lost about 9 pounds with the diuresis. Clinically stable to be discharged home today. Follow-up with the switchboard receptionist in 2 weeks. Discharge time over 30 minutes. Resuscitation Status: 07/20/20 01:17 Resuscitation Status Routine Co-Sign Provider: Resuscitation Status: FULL: Full Resuscitation Discussed with: patient Additional comments: daughter is Kosta Lewis at [phone] Lab Results: 07/19/20 22:54 07/21/20 11:04 Abnormal Lab Results - Last 48 hrs 07/21/20 11:04: Potassium 3.2 L, Chloride 95 L, Carbon Dioxide 37 H, BUN 35 H, Creatinine 2.03 H Vitals: Vital Signs (12 hours) Temp Pulse Pulse Pulse Resp BP BP 07/22/20 11:43 98.1 F 86 19 07/22/20 10:26 76 70 123/73 115/72 07/22/20 07:40 07/22/20 07:39 98.0 F 71 16 07/22/20 04:00 98.1 F 70 16 BP Pulse Ox Pulse Ox Pulse Ox 07/22/20 11:43 116/69 96 07/22/20 10:26 98 97 07/22/20 07:40 96 07/22/20 07:39 119/74 96 07/22/20 04:00 124/66 95 Weight Weight 235 lb 1.6 oz Physical Exam: The patient was seen and examined on the day of discharge. He is quite comfortable going home today. He has an appointment tomorrow to see switchboard receptionist but felt not necessary as he has seen by them as inpt. fw in 2 wks Plan Prescriptions: Furosemide [Lasix] 40 mg PO DAILY 30 Days #30 tablet Home Medications: Medication Instructions Recorded Confirmed Type Aspirin Chewable [Aspirin Chewable 81 mg PO DAILY 12/13/19 07/20/20 History Tablet] Atorvastatin Calcium [Lipitor] 40 mg PO HS 12/13/19 07/20/20 History Magnesium 250 mg PO DAILY 01/02/20 07/20/20 History Famotidine 20 mg PO DAILY 01/27/20 07/20/20 History Amiodarone [Cordarone] 200 mg PO DAILY 02/14/20 07/20/20 History Cholecalciferol (Vitamin D3) 125 mcg PO DAILY 02/16/20 07/20/20 History [Vitamin D3] Metoprolol Succinate 25 mg PO DAILY 02/16/20 07/20/20 History Furosemide [Lasix] 40 mg PO ASDIR 06/04/20 07/20/20 History Allopurinol [Zyloprim] 100 mg PO DAILY #30 tablet 06/07/20 07/20/20 Rx Apixaban [Eliquis] 5 mg PO BID 30 Days #60 tab 06/07/20 07/20/20 Rx Potassium Chloride 10 meq PO ASDIR 07/05/20 07/20/20 History Calcium Carbonate [Calcium] 500 mg PO DAILY 07/20/20 07/20/20 History Diltiazem HCl [Diltiazem 24Hr CD] 120 mg PO DAILY 07/20/20 07/20/20 History [place]-3 Fatty Acids/Fish Oil [Fish 1 cap PO TID 07/20/20 07/20/20 History Oil 1,000 mg Capsule] traZODone HCl [Trazodone HCl] 50 mg PO HS 07/20/20 07/20/20 History Furosemide [Lasix] 40 mg PO DAILY 30 Days #30 tablet 07/22/20 Rx Allergies: No Known Drug Allergies Allergy (Verified 07/20/20 20:19) PER pt Discharge Instructions:: PCP in 1 week Follow-up with Dr. Montes in 2 to 3 weeks Activity:: Activity as Tolerated Nourishment:: Heart Healthy Diet, Low Sodium Diet Referrals: [facility] PHYSICIAN,OUT OF [Primary Care Provider] - 7 Days (Contact your primary care provider to set up a follow up appointment within a week.) Chad Montes MD [Active] - 2-3 Weeks (Call Dr. Amanda to set up a follow up appointment in 2-3 weeks.) Disposition: HOME Quality CORE MEASURES:: N/A
== END 2020-07-22 13:35 | disposition home or self-care (01) | DRG 291 ==
LOC: ERS 22:23 → ERHOLD 07-20 00:53 → 2NO 07-20 18:54
PROVIDERS: ADMIT Student in an Organized Health Care Education/Training Program; ATTEND Internal Medicine
DX: I13.0 Hypertensive heart and chronic kidney disease with heart failure and stage 1 through stage 4 chronic kidney disease, or unspecified chronic kidney disease (principal); I50.33 Acute on chronic diastolic (congestive) heart failure; N17.9 Acute kidney failure, unspecified; I48.19 Other persistent atrial fibrillation; Z20.822 Contact with and (suspected) exposure to COVID-19; I44.0 Atrioventricular block, first degree; I48.0 Paroxysmal atrial fibrillation; E78.5 Hyperlipidemia, unspecified; K21.9 Gastro-esophageal reflux disease without esophagitis; M10.9 Gout, unspecified; F41.9 Anxiety disorder, unspecified; F32.9 Major depressive disorder, single episode, unspecified; E78.00 Pure hypercholesterolemia, unspecified; G47.30 Sleep apnea, unspecified; Z79.82 Long term (current) use of aspirin; Z79.01 Long term (current) use of anticoagulants
CPT/HCPCS: 36415; 71045; 76770; 80048; 80053; 81001; 83735; 83880; 84443; 84484; 85025; 87635; 93005; 93798; 96374; J1940; U0003; U0005

== ENCOUNTER 2020-08-23 12:21 | Emergency (ER) | payer MEDICARE ==
[2020-08-23] MEDS ORDERED: Morphine 4 MG/ML VIAL ONE (12:54)
[2020-08-23 13:03] LABS: #Eosinphils 0.1 thou/uL (0.0-0.7); #Lymphocytes 1.3 thou/uL (1.20-3.40); #Monocytes 0.7 thou/uL (0.11-0.59); #Neutrophils 4.2 thou/uL (1.40-6.50); %Basophils 0.5 % (0.0-1.0); %Eosinophils 2.1 % (0.0-10.0); %Monocytes 10.7 % (0.0-10.0); %Neutrophils 66.6 % (42.0-75.0); Hemoglobin 9.3 g/dL (14.0-18.0); Mean Corpuscular HGB CONC 30.8 g/dL (32.0-36.0); Mean Corpuscular Hemoglobin 24.7 pg (27.0-31.0); Mean Corpuscular Volume 80.1 fL (78.0-98.0); Mean Platelet Volume 7.9 fL (7.4-10.4); Platelet Count 271 thou/uL (130-400); RBC Distribution Width 17.5 % (11.5-14.5); Red Blood Cell (RBC) Count 3.77 mill/uL (4.70-6.10); White Blood Cell (WBC) Count 6.3 thou/uL (4.8-10.8)
[2020-08-23 13:27] LABS: ALT (SGPT) 18 U/L (8-55); AST (SGOT) 37 U/L (5-34); Albumin 3.7 g/dL (3.4-4.8); Alkaline Phosphatase 166 U/L (40-110); Anion Gap 15 mmol/L (10-20); BUN (Urea Nitrogen) 31 mg/dL (8.4-25.7); Bilirubin, Total 1.2 mg/dL (0.2-1.2); CK (CPK) 812 U/L (30-200); Calc. Creatinine Clearance 0 mL/min (70-130); Calcium 8.8 mg/dL (7.8-10.44); Carbon Dioxide 24 mmol/L (23-31); Chloride 103 mmol/L (98-107); Globulin 3.7 g/dL (2.4-3.5); Glucose 152 mg/dL (80-115); Potassium 3.9 mmol/L (3.5-5.1); Protein, Total 7.4 g/dL (5.8-8.1); Sodium 138 mmol/L (136-145)
[2020-08-23] MEDS ORDERED: Gabapentin 300 MG CAP PO SCH (15:30)
== END 2020-08-23 16:09 | disposition home or self-care (01) ==
LOC: ERS 12:21
DX: G62.9 Polyneuropathy, unspecified (principal); I11.0 Hypertensive heart disease with heart failure; I50.9 Heart failure, unspecified; I48.91 Unspecified atrial fibrillation; K21.9 Gastro-esophageal reflux disease without esophagitis; M10.9 Gout, unspecified; E78.5 Hyperlipidemia, unspecified; E78.00 Pure hypercholesterolemia, unspecified; Z79.82 Long term (current) use of aspirin; Z79.899 Other long term (current) drug therapy; Z79.01 Long term (current) use of anticoagulants
CPT/HCPCS: 70450; 80053; 82550; 85025; 96374; J2270

== ENCOUNTER 2020-12-18 08:11 | Observation (INO) | payer MEDICARE ==
[2020-12-18 23:53] VITALS: BMI 41.6
[2020-12-19 09:23] VITALS: TEMP 98.2
[2020-12-19 12:15] VITALS: BP 138/84
== END 2020-12-19 12:15 | disposition home or self-care (01) ==
LOC: CCL 08:11 → 2NO 11:02
PROVIDERS: ADMIT Internal Medicine Cardiovascular Disease; ATTEND Internal Medicine Cardiovascular Disease
PROC: 02583ZZ Destruction of Conduction Mechanism, Percutaneous Approach (ICD-10-PCS; principal; 2020-12-18)
PROC: 02K83ZZ Map Conduction Mechanism, Percutaneous Approach (ICD-10-PCS; 2020-12-18)
PROC: 4A023FZ Measurement of Cardiac Rhythm, Percutaneous Approach (ICD-10-PCS; 2020-12-18)
PROC: 4A0234Z Measurement of Cardiac Electrical Activity, Percutaneous Approach (ICD-10-PCS; 2020-12-18)
DX: I48.19 Other persistent atrial fibrillation (principal); I48.4 Atypical atrial flutter; I11.0 Hypertensive heart disease with heart failure; I50.33 Acute on chronic diastolic (congestive) heart failure; G47.33 Obstructive sleep apnea (adult) (pediatric); E78.00 Pure hypercholesterolemia, unspecified; M10.9 Gout, unspecified; I34.0 Nonrheumatic mitral (valve) insufficiency; E66.01 Morbid (severe) obesity due to excess calories; Z68.41 Body mass index [BMI] 40.0-44.9, adult; Z79.01 Long term (current) use of anticoagulants; Z79.82 Long term (current) use of aspirin; Z79.899 Other long term (current) drug therapy; Z98.890 Other specified postprocedural states
CPT/HCPCS: 76942; 80048; 85025; 85347 ×2; 85610; 85730; 92960; 93005 ×3; 93613; 93623; 93655; 93656; 93657; 93662; C1732 ×2; C1759; C1884; 36415; 93010; 96374; G0378; J1100; J1644; J1940; J2370; J2405; J2704; J2720; J3010

== ENCOUNTER 2021-04-17 22:30 | Emergency (ER) | payer MEDICARE ==
[2021-04-17 23:13] LABS: #Eosinphils 0.2 thou/uL (0.0-0.7); #Lymphocytes 2.5 thou/uL (1.20-3.40); #Monocytes 0.8 thou/uL (0.11-0.59); #Neutrophils 5.4 thou/uL (1.40-6.50); %Basophils 0.1 % (0.0-1.0); %Eosinophils 2.4 % (0.0-10.0); %Lymphocytes 28.1 % (21.0-51.0); %Monocytes 9.1 % (0.0-10.0); %Neutrophils 60.3 % (42.0-75.0); Mean Corpuscular Volume 87.9 fL (78.0-98.0); Mean Platelet Volume 7.4 fL (7.4-10.4); Platelet Count 237 thou/uL (130-400); RBC Distribution Width 16.6 % (11.5-14.5); Red Blood Cell (RBC) Count 4.13 mill/uL (4.70-6.10)
[2021-04-17 23:33] LABS: ALT (SGPT) 21 U/L (8-55); AST (SGOT) 27 U/L (5-34); Albumin 3.8 g/dL (3.4-4.8); Alkaline Phosphatase 134 U/L (40-110); Anion Gap 13 mmol/L (10-20); BUN (Urea Nitrogen) 32 mg/dL (8.4-25.7); Bilirubin, Total 0.6 mg/dL (0.2-1.2); Calc. Creatinine Clearance 0 mL/min (70-130); Calcium 9.3 mg/dL (7.8-10.44); Carbon Dioxide 26 mmol/L (23-31); Chloride 105 mmol/L (98-107); Globulin 3.9 g/dL (2.4-3.5); Glucose 108 mg/dL (80-115); Potassium 4.1 mmol/L (3.5-5.1); Protein, Total 7.7 g/dL (5.8-8.1); Sodium 140 mmol/L (136-145)
== END 2021-04-18 00:13 | disposition home or self-care (01) ==
LOC: ERS 22:30
DX: R06.02 Shortness of breath (principal); I11.0 Hypertensive heart disease with heart failure; I50.9 Heart failure, unspecified; I48.91 Unspecified atrial fibrillation; E78.5 Hyperlipidemia, unspecified; E78.00 Pure hypercholesterolemia, unspecified; Z79.01 Long term (current) use of anticoagulants; Z79.82 Long term (current) use of aspirin
CPT/HCPCS: 71045; 80053; 83880; 84484; 85025; 93005

== ENCOUNTER 2021-06-18 09:27 | Outpatient (CLI) | payer MEDICARE | END 2021-06-18 09:28 | disposition home or self-care (01) | LOC: ULT 09:27 | PROVIDERS: ATTEND Internal Medicine Cardiovascular Disease | DX: I72.4 Aneurysm of artery of lower extremity (principal); I50.33 Acute on chronic diastolic (congestive) heart failure; R63.8 Other symptoms and signs concerning food and fluid intake; G47.33 Obstructive sleep apnea (adult) (pediatric); Z99.89 Dependence on other enabling machines and devices; I70.202 Unspecified atherosclerosis of native arteries of extremities, left leg; E66.01 Morbid (severe) obesity due to excess calories; Z68.41 Body mass index [BMI] 40.0-44.9, adult; Z79.01 Long term (current) use of anticoagulants | CPT/HCPCS: 93923 ==

== ENCOUNTER 2021-06-21 19:22 | Emergency (ER) | payer MEDICARE ==
[2021-06-21 20:12] LABS: #Eosinphils 0.2 thou/uL (0.0-0.7); #Lymphocytes 1.7 thou/uL (1.20-3.40); #Monocytes 0.7 thou/uL (0.11-0.59); #Neutrophils 6.1 thou/uL (1.40-6.50); %Basophils 0.4 % (0.0-1.0); %Eosinophils 1.8 % (0.0-10.0); %Lymphocytes 19.6 % (21.0-51.0); %Monocytes 7.9 % (0.0-10.0); %Neutrophils 70.3 % (42.0-75.0); Mean Corpuscular HGB CONC 31.4 g/dL (32.0-36.0); Mean Corpuscular Hemoglobin 27.8 pg (27.0-31.0); Mean Corpuscular Volume 88.5 fL (78.0-98.0); Mean Platelet Volume 6.8 fL (7.4-10.4); Platelet Count 319 thou/uL (130-400); Red Blood Cell (RBC) Count 3.97 mill/uL (4.70-6.10); White Blood Cell (WBC) Count 8.7 thou/uL (4.8-10.8)
[2021-06-21] MEDS ORDERED: Furosemide 40 MG/4 ML VIAL ONE (20:13)
[2021-06-21 20:39] LABS: ALT (SGPT) 24 U/L (8-55); AST (SGOT) 26 U/L (5-34); Albumin 4.1 g/dL (3.4-4.8); Alkaline Phosphatase 148 U/L (40-110); Anion Gap 14 mmol/L (10-20); BUN (Urea Nitrogen) 37 mg/dL (8.4-25.7); Bilirubin, Total 1.1 mg/dL (0.2-1.2); Calc. Creatinine Clearance 0 mL/min (70-130); Calcium 9.1 mg/dL (7.8-10.44); Carbon Dioxide 27 mmol/L (23-31); Chloride 103 mmol/L (98-107); Globulin 3.7 g/dL (2.4-3.5); Glucose 101 mg/dL (80-115); Potassium 4.3 mmol/L (3.5-5.1); Protein, Total 7.8 g/dL (5.8-8.1); Sodium 140 mmol/L (136-145)
== END 2021-06-21 22:19 | disposition home or self-care (01) ==
LOC: ERS 19:22
DX: R06.00 Dyspnea, unspecified (principal); I48.0 Paroxysmal atrial fibrillation; K21.9 Gastro-esophageal reflux disease without esophagitis; E78.5 Hyperlipidemia, unspecified; E78.00 Pure hypercholesterolemia, unspecified; I11.0 Hypertensive heart disease with heart failure; I50.9 Heart failure, unspecified; Z79.01 Long term (current) use of anticoagulants; Z79.82 Long term (current) use of aspirin; Z79.899 Other long term (current) drug therapy
CPT/HCPCS: 36415; 71045; 80053; 83880; 84484; 85025; 93005; 96374; J1940

== ENCOUNTER 2021-06-27 17:50 | Outpatient (CLI) | payer MEDICARE ==
[2021-06-28 15:38] LABS: SARS-CoV-2 PCR by NAA Not Detected (NotDetected)
== END 2021-06-27 17:51 | disposition home or self-care (01) ==
LOC: LABBT 17:50
PROVIDERS: ATTEND Internal Medicine Cardiovascular Disease
DX: Z01.812 Encounter for preprocedural laboratory examination (principal); R07.9 Chest pain, unspecified; Z20.822 Contact with and (suspected) exposure to COVID-19
CPT/HCPCS: U0003; U0005

== ENCOUNTER 2021-07-02 05:57 | Day surgery (SDC) | payer MEDICARE ==
[2021-06-26 13:54] VITALS: BMI 40.7
[2021-07-02 12:00] LABS: SARS-CoV-2 PCR by NAA Not Detected (NotDetected)
== END 2021-07-02 08:40 | disposition home or self-care (01) ==
LOC: CCL 05:57
PROVIDERS: ATTEND Internal Medicine Cardiovascular Disease
DX: R07.9 Chest pain, unspecified (principal); Z53.09 Procedure and treatment not carried out because of other contraindication; Z79.01 Long term (current) use of anticoagulants; Z79.82 Long term (current) use of aspirin; Z79.899 Other long term (current) drug therapy; Z20.822 Contact with and (suspected) exposure to COVID-19
CPT/HCPCS: U0003; U0005

== ENCOUNTER 2021-07-07 05:59 | Day surgery (SDC) | payer MEDICARE ==
[2021-07-02 12:20] VITALS: BMI 40.7
[2021-07-07 11:11] LABS: Anion Gap 12 mmol/L (10-20); BUN (Urea Nitrogen) 28 mg/dL (8.4-25.7); Calc. Creatinine Clearance 97 mL/min (70-130); Calcium 9.2 mg/dL (7.8-10.44); Carbon Dioxide 25 mmol/L (23-31); Chloride 106 mmol/L (98-107); Glucose 96 mg/dL (80-115); Potassium 4.2 mmol/L (3.5-5.1); Sodium 139 mmol/L (136-145)
[2021-07-07] MEDS ORDERED: Verapamil 5 MG/2 ML VIAL ONE (11:21)
[2021-07-07] MEDS ORDERED: Nitroglycerin 100MG/250ML BOT 250 ML ONE (11:21)
[2021-07-07] MEDS ORDERED: Heparin 10,000 UNITS/ 10 ML VIAL ONE (11:21)
[2021-07-07] MEDS ORDERED: Midazolam HCl 2 mg/2 ml Vial ONE (11:48)
[2021-07-07] MEDS ORDERED: Fentanyl 100 MCG/2 ML VIAL ONE (11:48)
== END 2021-07-07 16:07 | disposition home or self-care (01) ==
LOC: CCL 05:59
PROVIDERS: ATTEND Internal Medicine Cardiovascular Disease
PROC: 4A023N7 Measurement of Cardiac Sampling and Pressure, Left Heart, Percutaneous Approach (ICD-10-PCS; principal; 2021-07-07)
PROC: B2111ZZ Fluoroscopy of Multiple Coronary Arteries using Low Osmolar Contrast (ICD-10-PCS; 2021-07-07)
DX: R07.9 Chest pain, unspecified (principal); I42.8 Other cardiomyopathies; I11.0 Hypertensive heart disease with heart failure; I50.33 Acute on chronic diastolic (congestive) heart failure; E78.5 Hyperlipidemia, unspecified; M10.9 Gout, unspecified; K21.9 Gastro-esophageal reflux disease without esophagitis; G47.33 Obstructive sleep apnea (adult) (pediatric); I48.19 Other persistent atrial fibrillation; I31.3 Pericardial effusion (noninflammatory); Z86.73 Personal history of transient ischemic attack (TIA), and cerebral infarction without residual deficits; Z79.01 Long term (current) use of anticoagulants; Z79.82 Long term (current) use of aspirin; Z79.899 Other long term (current) drug therapy
CPT/HCPCS: 80048; 93458; J1644; J2250; J3010

== ENCOUNTER 2021-10-31 15:25 | Outpatient (CLI) | payer MEDICARE, OTHER | END 2021-10-31 15:26 | disposition home or self-care (01) | LOC: LABBT 15:25 | PROVIDERS: ATTEND Family Medicine | DX: Z01.818 Encounter for other preprocedural examination (principal); I48.91 Unspecified atrial fibrillation; Z20.822 Contact with and (suspected) exposure to COVID-19 | CPT/HCPCS: 80053; 81003; 85027; 86147; 86850; 86900; 86901; 93005; U0003; U0005; 93010 ==

== ENCOUNTER 2021-10-31 15:30 | Inpatient (IN) | payer MEDICARE ==
[2021-10-31 16:39] LABS: Bilirubin Neg (Negative); Blood, Urine Negative (Negative); Clarity Clear (Clear); Glucose, Urine (Dipstick) Normal (Negative); Ketone, Urine Negative (Negative); Leukocyte Negative (Negative); Nitrite Negative (Negative); Protein, Urine (Dipstick) Negative (Neg-Trace); Urobilinogen Normal mg/dL (Less than 2); pH, Urine 6.5 (5.0-9.0)
[2021-10-31 16:42] LABS: Hemoglobin 11.9 g/dL (13.5-17.5); Mean Corpuscular HGB CONC 30.9 g/dL (32.0-36.0); Mean Corpuscular Volume 90.6 fl (81.2-95.1); Mean Platelet Volume 9.3 fl (7.4-10.4); Platelet Count 257 10x3/uL (150-450); RBC Distribution Width 16.4 % (11.5-14.5); Red Blood Cell (RBC) Count 4.25 10x6/uL (4.32-5.72); White Blood Cell (WBC) Count 7.8 10x3/uL (3.5-10.5)
[2021-10-31 17:04] LABS: ALT (SGPT) 16 U/L (8-55); AST (SGOT) 21 U/L (5-34); Albumin 4.2 g/dL (3.4-4.8); Alkaline Phosphatase 122 U/L (40-110); Anion Gap 17 mmol/L (10-20); BUN (Urea Nitrogen) 35 mg/dL (8.4-25.7); Calc. Creatinine Clearance 0 mL/min (70-130); Calcium 9.3 mg/dL (7.8-10.44); Carbon Dioxide 28 mmol/L (23-31); Chloride 101 mmol/L (98-107); Globulin 3.5 g/dL (2.4-3.5); Glucose 93 mg/dL (80-115); Protein, Total 7.7 g/dL (5.8-8.1); Sodium 142 mmol/L (136-145)
[2021-11-03 14:56] VITALS: BMI 41.0
[2021-11-05] MEDS ORDERED: CEFAZOLIN 1 GM VIAL ONE ×2 (06:25→11:12)
[2021-11-05] MEDS ORDERED: Heparin 10,000 UNITS/ 10 ML VIAL ONE (06:25)
[2021-11-05] MEDS ORDERED: Protamine Sulfate 50 MG/5 ML VIAL ONE (06:25)
[2021-11-05] MEDS ORDERED: Ondansetron PF 4 MG/2 ML Vial ONE (07:51)
[2021-11-05] MEDS ORDERED: ePHEDrine 50 MG/ML VIAL ONE (07:51)
[2021-11-05] MEDS ORDERED: PROPOFOL 200 MG/20 ML VIAL ONE (07:51)
[2021-11-05] MEDS ORDERED: Iopamidol 370 76% 100 ML VIAL ONE (09:38)
[2021-11-05] MEDS ORDERED: fentaNYL Citrate/PF 100 MCG/2 ML SYRINGE ONE ×2 (10:09→14:42)
[2021-11-05] MEDS ORDERED: HYDROcodone/Acetaminophen 5/325 mg Tablet ONE (15:04)
== END 2021-11-05 16:09 | disposition home or self-care (01) | DRG 274 ==
LOC: SURG A 11-05 05:50
PROVIDERS: ADMIT Hospitalist; ATTEND Internal Medicine Cardiovascular Disease
PROC: 02L73DK Occlusion of Left Atrial Appendage with Intraluminal Device, Percutaneous Approach (ICD-10-PCS; principal; 2021-11-05)
PROC: B24BZZ4 Ultrasonography of Heart with Aorta, Transesophageal (ICD-10-PCS; 2021-11-05)
DX: I48.0 Paroxysmal atrial fibrillation (principal); Z20.822 Contact with and (suspected) exposure to COVID-19; Z00.6 Encounter for examination for normal comparison and control in clinical research program; Z79.82 Long term (current) use of aspirin; Z79.01 Long term (current) use of anticoagulants; Z79.899 Other long term (current) drug therapy; I11.0 Hypertensive heart disease with heart failure; I50.9 Heart failure, unspecified
CPT/HCPCS: 33340; 80053; 81003; 85027; 85347; 86850; 86900; 86901; 93662; C1759; J0690; J1644; J2405; J2704; J2720; J3490; Q9967; U0003; U0005

== ENCOUNTER 2021-12-19 15:10 | Outpatient (CLI) | payer MEDICARE ==
[2021-12-19 16:18] LABS: Hemoglobin 11.5 g/dL (13.5-17.5); Mean Corpuscular HGB CONC 31.4 g/dL (32.0-36.0); Mean Corpuscular Hemoglobin 28.5 pg (27.0-33.0); Mean Corpuscular Volume 90.8 fl (81.2-95.1); Mean Platelet Volume 9.2 fl (7.4-10.4); Platelet Count 340 10x3/uL (150-450); RBC Distribution Width 16.9 % (11.5-14.5); Red Blood Cell (RBC) Count 4.03 10x6/uL (4.32-5.72); White Blood Cell (WBC) Count 9.6 10x3/uL (3.5-10.5)
[2021-12-19 16:37] LABS: Anion Gap 16 mmol/L (10-20); BUN (Urea Nitrogen) 48 mg/dL (8.4-25.7); Calc. Creatinine Clearance 0 mL/min (70-130); Calcium 9.1 mg/dL (7.8-10.44); Carbon Dioxide 27 mmol/L (23-31); Chloride 103 mmol/L (98-107); Estimated GFR 36; Glucose 116 mg/dL (80-115); Potassium 3.8 mmol/L (3.5-5.1); Sodium 142 mmol/L (136-145)
== END 2021-12-19 15:11 | disposition home or self-care (01) ==
LOC: LABBT 15:10
PROVIDERS: ATTEND Internal Medicine Cardiovascular Disease
DX: Z01.812 Encounter for preprocedural laboratory examination (principal); I48.91 Unspecified atrial fibrillation; Z20.822 Contact with and (suspected) exposure to COVID-19
CPT/HCPCS: 80048; 85027; 87811

== ENCOUNTER 2021-12-22 08:11 | Day surgery (SDC) | payer MEDICARE ==
[2021-12-18 09:11] VITALS: BMI 41.0
[2021-12-22] MEDS ORDERED: PROPOFOL 200 MG/20 ML VIAL ONE (13:16)
[2021-12-22] MEDS ORDERED: Lidocaine 1% PF 5 ML VIAL ONE (13:16)
== END 2021-12-22 14:20 | disposition home or self-care (01) ==
LOC: SDC 08:11
PROVIDERS: ATTEND Internal Medicine Cardiovascular Disease
PROC: B246ZZ4 Ultrasonography of Right and Left Heart, Transesophageal (ICD-10-PCS; principal; 2021-12-22)
DX: I48.19 Other persistent atrial fibrillation (principal); I08.1 Rheumatic disorders of both mitral and tricuspid valves; Z79.01 Long term (current) use of anticoagulants; Z79.82 Long term (current) use of aspirin; Z79.899 Other long term (current) drug therapy; Z95.818 Presence of other cardiac implants and grafts
CPT/HCPCS: 93312; J2704